=== PATIENT | male | born 1955 | race Caucasian/White ===

== ENCOUNTER 2016-11-23 08:41 | Outpatient (CLI) | payer MEDICARE ==
[2016-11-23] MEDS ORDERED: IOPAMIDOL-300 100 ML VIAL IVP ONE (10:25)
== END 2016-11-23 08:42 | disposition home or self-care (01) ==
DX: B18.2 Chronic viral hepatitis C (principal); R91.1 Solitary pulmonary nodule; J43.9 Emphysema, unspecified
CPT/HCPCS: 36415; 74170; 82565; Q9967

== ENCOUNTER 2018-01-23 08:30 | Outpatient (CLI) | payer MEDICARE ==
[2018-01-23 10:21] LABS: HGB - HEMOGLOBIN 13.9 g/dL (14.0-18.0); MEAN CORPUSCULAR HEMOGLOBIN 32.3 pg (27.0-31.0); MEAN CORPUSCULAR HGB CONC 34.9 g/dL (32.0-36.0); MEAN CORPUSCULAR VOLUME 92.5 fL (80.0-94.0); MEAN PLATELET VOLUME 8.5 fL (7.4-11.4); RED BLOOD COUNT 4.29 10^6/uL (4.70-6.10); WHITE BLOOD COUNT 5.8 x10^3/uL (4.8-10.8)
[2018-01-23 10:26] LABS: INR 1.1 (0.8-1.2); PT - PROTHROMBIN TIME 12.5 secs (9.9-12.6)
[2018-01-23 10:38] LABS: ALBUMIN 4.4 g/dL (3.2-5.5); ALBUMIN/GLOBULIN RATIO 1.2 (1.0-2.2); ALKALINE PHOSPHATASE 64 IU/L (42-121); ALT ALANINE AMINOTRANSFERASE 19 IU/L (10-60); AST ASPARTATE AMINOTRANSFERASE 35 IU/L (10-42); BILIRUBIN,DIRECT < 0.1 mg/dL (0.1-0.5); BILIRUBIN,TOTAL 0.5 mg/dL (0.2-1.0); BUN - BLOOD UREA NITROGEN 9 mg/dL (6-20); CALCIUM 9.7 mg/dL (8.5-10.3); CARBON DIOXIDE - CO2 28 mmol/L (21-32); CHLORIDE 97 mmol/L (101-111); CREATININE 0.8 mg/dL (0.6-1.2); GFR - MDRD 97 (>89); GLUCOSE 104 mg/dL (70-100); SODIUM 134 mmol/L (135-145); TOTAL PROTEIN 8.1 g/dL (6.7-8.2)
[2018-01-27 11:31] LABS: HCV RNA QNT <1.18 DETECTED Log IU/mL (NOT DETECTED); HCV RNA QUANT RT PCR <15 DETECTED IU/mL (NOT DETECTED)
== END 2018-01-23 08:31 | disposition home or self-care (01) ==
LOC: LAB.F 08:30
PROVIDERS: ATTEND Internal Medicine Gastroenterology
DX: B18.2 Chronic viral hepatitis C (principal)
CPT/HCPCS: 36415; 80053; 80076; 82248; 85610; 87522

== ENCOUNTER 2018-02-06 08:27 | Outpatient (CLI) | payer MEDICARE ==
[2018-02-09 18:36] LABS: HCV RNA QNT <1.18 DETECTED Log IU/mL (NOT DETECTED); HCV RNA QUANT RT PCR <15 DETECTED IU/mL (NOT DETECTED)
== END 2018-02-06 08:28 | disposition home or self-care (01) ==
LOC: LAB.F 08:27
PROVIDERS: ATTEND Internal Medicine Gastroenterology
DX: B18.2 Chronic viral hepatitis C (principal)
CPT/HCPCS: 36415; 87522

== ENCOUNTER 2018-03-23 07:11 | Outpatient (CLI) | payer MEDICARE ==
[2018-03-23 11:10] LABS: ALBUMIN 4.1 g/dL (3.2-5.5); BILIRUBIN,DIRECT 0.1 mg/dL (0.1-0.5); BILIRUBIN,TOTAL 0.6 mg/dL (0.2-1.0); TOTAL PROTEIN 8.1 g/dL (6.7-8.2)
== END 2018-03-23 07:12 | disposition home or self-care (01) ==
LOC: LAB.F 07:11
PROVIDERS: ATTEND Internal Medicine Gastroenterology
DX: B18.2 Chronic viral hepatitis C (principal)
CPT/HCPCS: 36415; 80076; 87522; 87902

== ENCOUNTER 2018-06-12 07:24 | Outpatient (CLI) | payer MEDICARE ==
[2018-06-12 10:24] LABS: ALBUMIN 4.3 g/dL (3.2-5.5); BILIRUBIN,DIRECT 0.1 mg/dL (0.1-0.5); BILIRUBIN,TOTAL 0.5 mg/dL (0.2-1.0); TOTAL PROTEIN 7.9 g/dL (6.7-8.2)
[2018-06-16 18:47] LABS: HCV RNA QNT <1.18 NOT DETECTED Log IU/mL (NOT DETECTED); HCV RNA QUANT RT PCR <15 NOT DETECTED IU/mL (NOT DETECTED)
== END 2018-06-12 07:25 | disposition home or self-care (01) ==
LOC: LAB.F 07:24
PROVIDERS: ATTEND Internal Medicine Gastroenterology
DX: B18.2 Chronic viral hepatitis C (principal)
CPT/HCPCS: 36415; 80076; 87522

== ENCOUNTER 2019-03-31 07:45 | Outpatient (CLI) | payer MEDICARE ==
[2019-04-02 12:53] LABS: HCV RNA QNT <1.18 NOT DETECTED Log IU/mL (NOT DETECTED); HCV RNA QUANT RT PCR <15 NOT DETECTED IU/mL (NOT DETECTED)
== END 2019-03-31 07:46 | disposition home or self-care (01) ==
LOC: LAB.F 07:45
PROVIDERS: ATTEND Internal Medicine Gastroenterology
DX: B18.2 Chronic viral hepatitis C (principal)
CPT/HCPCS: 36415; 87522

== ENCOUNTER 2019-07-24 09:39 | Outpatient (CLI) | payer MEDICARE ==
--- NOTE | 2019-07-25 17:46 | XRAY Report ---
Reason: PAIN IN LEFT KNEE Procedure Date: 07/24/2019 Accession Number: [id number] / [id number] Procedure: XR - Knee 4 View LT CPT Code: FULL RESULT: EXAM: LEFT KNEE RADIOGRAPHY EXAM DATE: 07/24/2019 10:01 AM. CLINICAL HISTORY: PAIN IN LEFT KNEE. COMPARISON: None. TECHNIQUE: 3 views. FINDINGS: Bones: No acute fracture lines are seen. No focal abnormal osseous lesions. Joints: Small joint effusion. No subluxation. Mild tricompartmental osteophytes seen. Soft Tissues: Normal. No soft tissue swelling. IMPRESSION: 1. No evidence for acute fracture or dislocation of the left knee. 2. Small joint effusion noted. 3. Early tricompartmental osteoarthritis. RADIA
== END 2019-07-24 09:40 | disposition home or self-care (01) ==
LOC: DI 09:39
PROVIDERS: ATTEND Nurse Practitioner Family
DX: M17.12 Unilateral primary osteoarthritis, left knee (principal)

== ENCOUNTER 2023-04-13 14:59 | Emergency (ER) | payer MEDICARE ==
[2023-04-13 15:12] VITALS: BP 129/65
--- NOTE | 2023-04-13 15:40 | ED Physician Documentation ---
History of Present Illness - Stated complaint Stated Complaint: LT LEG INJ - Chief complaint Chief Complaint: Laceration - Additonal information Additional information: 67-year-old male presents emergency department for evaluation of left lower leg laceration. He was using a reciprocating saw when it kicked back and cut his left lower lateral leg. Tetanus is up-to-date 6 years ago. He is not anticoagulated. He reports it bled quite heavily but has subsequently slowed. He is ambulatory. Review of Systems Constitutional: denies: Fever Skin: reports: Laceration (s) PD PAST MEDICAL HISTORY - Past Surgical History Past Surgical History: Yes - Present Medications Home Medications: Ambulatory Orders Medication Instructions Recorded Confirmed Cyclobenzaprine [Flexeril] 10 mg PO BID 05/13/13 05/13/13 Hydrochlorothiazide 25 mg PO DAILY 05/13/13 05/13/13 Hydrocodone Bit/Homatrop Me-Br 473 ml PO 05/13/13 05/13/13 [Hydromet Syrup] Indomethacin 50 mg PO TID #15 capsule 05/13/13 Promethazine [Phenergan] 25 mg PO Q6H PRN 05/13/13 05/13/13 Trazodone HCl 300 mg PO HS 05/13/13 05/13/13 fentaNYL 12 MCG PATCH [Duragesic] 12 mcg TOP 05/13/13 05/13/13 - Allergies Allergies/Adverse Reactions: Allergies Allergy/AdvReac Type Severity Reaction Status Date / Time No Known Drug Allergies Allergy Verified 05/13/13 14:32 - Social History Does the pt smoke?: Yes Smoking Status: Smoker current status unk Does the pt drink ETOH?: No Does the pt have substance abuse?: No - Immunizations Immunizations are current?: Yes - POLST Patient has POLST: No PD ED PE EXPANDED - General General: Alert, No acute distress - Extremities Extremities: Left leg (Irregular slightly macerated laceration about 4 cm in length left lower lateral leg with exposure of the subcutaneous muscle. Distal 2+ DP pulse.) Results - Vitals Vitals: Vital Signs - 24 hr 04/13/23 15:05 Temperature 36.5 C Heart Rate 97 Respiratory 16 Rate Blood Pressure 129/65 O2 Saturation 97 Oxygen O2 Source Room air - Rads (name of study) left tib fib Relevant Findings:: EMP independent interpretation of test (No acute fracture or osseous lesion or dislocation) Procedures - Laceration (location) left leg Length in cm: 4.5 Wound type: Irregular, Into muscle, Clean Neurovascular status: Sensory intact, Motor intact Anesthesia: Lidocaine 1% with epi Wound preparation: Chlorhexadine, Irrigated copiously NS Skin layer closure: Nylon, Interrupted, Sutures - enter # (5) Other: Patient tolerated well, No complications, Tetanus booster given PD Medical Decision Making - ED course Complexity details: d/w patient ED course: 67-year-old male presents emergency department for evaluation of left leg laceration sustained when a reciprocating saw kicked back and cut his leg. The wound is on the lateral edge of the leg. An x-ray as interpreted by myself shows no evidence of foreign body or tib-fib fracture. The wound was copiously irrigated and then the wound was approximated using 5 interrupted sutures. I did leave room for swelling and drainage if it becomes necessary. Tetanus was updated today. Given the otherwise clean appearance of the wound I do not feel that the patient needs antibiotics at this juncture however the usual explicit return precautions as well as wound care instructions were discussed. Departure - Departure Disposition: 01 Home, Self Care Clinical Impression: Laceration of left leg Qualifiers: Encounter type: initial encounter Qualified Code(s): S81.812A - Laceration without foreign body, left lower leg, initial encounter Condition: Stable Record reviewed to determine appropriate education?: Yes Instructions: ED Laceration All Comments: Your suture(5) should be removed in 10 days. In 24 hours you may remove the dressing wash gently with warm soap and water, apply any antibiotic ointment and a simple bandage. Your tetanus is up-to-date as of today Please attempt to keep your wound clean and dry. Do not submerge it in dirty dishwater or bath water. Return to the emergency department if you have any concerns of infection such as redness, fevers milky drainage increased pain.
[2023-04-13] MEDS ORDERED: TETANUS/DIPHTHERIA/PERTUSSIS 0.5 ML SYRINGE IM ONE (16:22)
--- NOTE | 2023-04-13 16:42 | XRAY Report ---
PROCEDURE: Tib/Fib LT INDICATIONS: Reciprocating saw injury TECHNIQUE: 2 views of the tibia and fibula were acquired. COMPARISON: None. FINDINGS: Bones: No fractures or dislocations. No suspicious bony lesions. Soft tissues: No suspicious soft tissue calcifications or masses. IMPRESSION: No acute bony abnormality. Reviewed by: Anson Hart on 04/13/2023 3:40 PM CHRISTINA Approved by: Anson Hart on 04/13/2023 3:40 PM NECHRIS Station ID: [id number]
== END 2023-04-13 16:30 | disposition home or self-care (01) ==
LOC: ED 14:59
DX: S81.812A Laceration without foreign body, left lower leg, initial encounter (principal); W27.0XXA Contact with workbench tool, initial encounter; Z23 Encounter for immunization
CPT/HCPCS: 12001; 90471; 99283

== ENCOUNTER 2024-03-05 08:29 | Outpatient (CLI) | payer MEDICARE ==
[2024-03-05] MEDS ORDERED: iohexoL-300 100 ML VIAL ONE (08:34)
[2024-03-05] MEDS: iohexoL-300 100 ML VIAL IVP ONE (09:06)
--- NOTE | 2024-03-05 12:51 | CT Report ---
PROCEDURE: Soft Tissue Neck W INDICATIONS: CERVICAL LYMPHADENOPATHY CONTRAST: 100ml omni TECHNIQUE: After the administration of intravenous contrast, 3.0 mm axial sections acquired from the sella to th e aortic arch. Additional oblique axial 3.0 mm sections acquired through the pharynx. 3 mm thick co jay reformats were generated. For radiation dose reduction, the following was used: automated exp osure control, adjustment of mA and/or kV according to patient size. COMPARISON: None. FINDINGS: Image quality: Excellent. Lymph nodes: No enlarged lymph nodes seen throughout the neck. Vessels: Visualized vasculature appears patent. Neck spaces: The oropharynx, nasopharynx, and pharynx demonstrate no mucosal lesions. The vocal cor ds, false vocal cords, pyriform sinuses, epiglottis, vallecula, and tongue base all appear normal. E xtramucosal spaces appear unremarkable. Glands: The submandibular glands appear normal. The thyroid is normal in size and there are no inci dental findings. There is an enhancing mass within the posterior inferior right parotid gland measuri ng 2.1 x 2.0 cm on series 2 image 36. Miscellaneous: Visualized brain and orbits appear normal. Lung apices appear clear. Superficial so ft tissues appear normal. Bones: No suspicious bony lesions. Visualized sinuses and mastoids appear unremarkable. IMPRESSION: 2.1 x 2 point centimeter enhancing mass within the inferior posterior right parotid gland. No priors are available for comparison. Differential includes benign etiology such as Elly's tumor as well a s masses of malignant origin. Further evaluation with ENT and biopsy is recommended. CLINICAL RECOMMENDATION STATEMENTS: In patients <35 years with an ITN detected on CT, MRI, or extrathyroidal ultrasound, the Committee re commends further evaluation with dedicated thyroid ultrasound if the nodule is "e1 cm and has no susp icious imaging features, and if the patient has normal life expectancy. In patients "e35 years with an ITN detected on CT, MRI, or extrathyroidal ultrasound, the Committee r ecommends further evaluation with dedicated thyroid ultrasound if the nodule is "e1.5 cm and has no s uspicious imaging features, and if the patient has normal life expectancy. (ACR, 2014) Reviewed by: Joanie Salas MD on 03/05/2024 12:50 PM PDT Approved by: Joanie Salas MD on 03/05/2024 12:50 PM PDT Station ID: [id number]
== END 2024-03-05 08:30 | disposition home or self-care (01) ==
LOC: DI 08:29
PROVIDERS: ATTEND Registered Nurse
DX: K11.8 Other diseases of salivary glands (principal)
CPT/HCPCS: 70491; Q9967

== ENCOUNTER 2025-09-21 21:20 | Inpatient (IN) ==
--- OUTSIDE RECORDS SUMMARY | 2025-09-21 21:47 | EXTERNAL MEDICAL SUMMARY RPT | Continuity of Care Document ---
Author Organization [facility] Address [address] [place] [id number] Phone Allergies and Intolerances date description facility reaction severity 2013-05-13 10:00 [id number]^No Known Drug Allergies^^No Known Drug Allergies^^[facility] (no reaction) (no severity) 2025-06-16 10:00 [id number]^No Known Drug Allergies^^No Known Drug Allergies^^[facility] ([facility] reaction) (no severity) 2025-07-13 10:00 [id number]^No Known Drug Allergies^^No Known Drug Allergies^^[facility] (no reaction) (no severity) 2025-07-21 10:00 [id number]^No Known Drug Allergies^^No Known Drug Allergies^^[facility] (no reaction) (no severity) 2025-08-29 10:00 [id number]^No Known Drug Allergies^^No Known Drug Allergies^^[facility] (no reaction) (no severity) 2025-09-06 10:00 [id number]^No Known Drug Allergies^^No Known Drug Allergies^^[facility] (no reaction) (no severity) 2025-09-08 10:00 [id number]^No Known Drug Allergies^^No Known Drug Allergies^^[facility] (no reaction) (no severity) Problems date description facility 2025-06-30 15:06 Abnormal findings on diagnostic imaging of other abdominal regions, including retroperitoneum [facility] 2025-07-13 14:17 Elevated prostate specific anti gen [PSA] [facility] 2025-07-13 14:39 Elevated prostate specific anti gen [PSA] [facility] 2025-07-26 12:54 Hypercalcemia [facility] 2025-08-19 00:05 [facility] cell carcinoma [facility] 2025-08-19 12:52 Liver cell [facility] 2025-08-19 12:54 [facility] cell [facility] 2025-08-20 00:00 Liver cell carcinoma [facility] 2025-08-20 00:00 [facility] 2025-08-20 00:00 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 [facility]monale [facility] 2025-08-22 14:11 Liver cell carcinoma [facility] 2025-08-23 07:43 Liver cell carcinoma [facility] 2025-08-23 09:14 Liver cell [facility] 2025-08-23 09:25 Liver cell carcinoma [facility] 2025-08-23 10:18 Liver cell carcinoma [facility] 2025-08-25 08:23 [facility] cell [facility] 2025-08-25 08:23 Moderate protein-calorie malnut rition [facility] 2025-08-25 09:24 Liver cell carcinoma [facility] 2025-08-25 09:26 Liver cell carcinoma [facility] 2025-08-26 07:47 Liver cell carcinoma [facility] 2025-08-26 08:48 Liver cell carcinoma [facility] 2025-08-26 09:09 Liver cell carcinoma [facility] 2025-08-27 00:01 Liver cell carcinoma [facility] 2025-08-27 00:01 Hyper[facility]cemia [facility] 2025-08-27 00:01 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27 00:01 Other specified counseling [facility] 2025-08-30 08:41 [facility] cell [facility] 2025-08-30 08:56 Liver cell carcinoma [facility] 2025-08-30 08:56 Encounter for genera l adult medical examination without abnormal findings [facility] 2025-08-30 08:59 Liver cell carcinoma [facility] 2025-08-30 08:59 Encounter for genera l adult medical examination without abnormal findings [facility] 2025-08-30 10:17 Liver cell carcinoma [facility] 2025-08-30 10:17 Hypercalcemia [facility] 2025-08-30 10:17 Encounter for genera l adult medical examination without abnormal [facility] 2025-09-02 08:41 Liver cell carcinoma [facility] 2025-09-02 08:41 Encounter for genera l adult medical examination without abnormal findings [facility] 2025-09-02 08:56 Liver cell carcinoma [facility] 2025-09-02 08:56 Encounter for genera l adult medical examination without abnormal findings [facility] 2025-09-02 09:28 Liver cell carcinoma [facility] 2025-09-02 09:28 Encounter for genera l adult medical examination without abnormal [facility] 2025-09-02 09:36 Liver cell carcinoma [facility] 2025-09-02 10:38 Liver cell carcinoma [facility] 2025-09-02 10:39 Liver cell carcinoma [facility] 2025-09-02 11:03 Liver cell carcinoma [facility] 2025-09-02 11:03 Encounter for genera l adult medical examination without abnormal [facility] 2025-09-02 11:04 Liver cell carcinoma [facility] 2025-09-02 11:04 Encounter for genera l adult medical examination without abnormal findings [facility] 2025-09-03 12:13 Liver cell carcinoma [facility] 2025-09-04 00:01 Liver cell carcinoma [facility] 2025-09-05 12:10 Liver cell carcinoma [facility] 2025-09-05 13:58 Liver cell carcinoma [facility] 2025-09-06 08:47 Liver cell carcinoma [facility] 2025-09-06 09:03 Liver cell carcinoma [facility] 2025-09-06 09:03 Hyper[facility]cemia [facility] 2025-09-06 09:37 Liver cell carcinoma [facility] 2025-09-06 09:37 Hyper[facility]cemia [facility] 2025-09-06 15:12 Liver cell carcinoma [facility] 2025-09-06 15:12 Hypercalcemia [facility] 2025-09-08 14:55 Liver cell carcinoma [facility] 2025-09-08 16:18 Gastritis, unspecified, without bleeding [facility] 2025-09-08 16:25 Gastritis, unspecified, without bleeding [facility] 2025-09-08 16:58 Liver cell carcinoma [facility] 2025-09-08 16:58 Gastritis, unspecified, without bleeding [facility] 2025-09-09 11:24 Liver cell carcinoma [facility] 2025-09-09 11:24 [facility]cemia [facility] 2025-09-09 11:25 Liver cell carcinoma [facility] 2025-09-09 11:25 [facility]calcemia [facility] 2025-09-09 11:58 Liver cell carcinoma [facility] 2025-09-09 11:58 [facility]calcemia [facility] 2025-09-09 11:58 Abnormal findings on diagnostic imaging of other abdominal regions, including retroperitoneum [facility] 2025-09-09 11:58 Laceration without f oreign body, left lower leg, initial encounter [facility] 2025-09-12 08:14 Liver cell carcinoma [facility] 2025-09-12 08:14 [facility]cemia [facility] 2025-09-12 08:15 Liver cell carcinoma [facility] 2025-09-12 08:15 [facility]calcemia [facility] 2025-09-12 09:12 Liver cell carcinoma [facility] 2025-09-12 09:12 [facility] 2025-09-12 10:45 Liver cell carcinoma [facility] 2025-09-12 10:45 [facility] 2025-09-12 10:46 Liver cell carcinoma [facility] 2025-09-12 10:46 [facility] 2025-09-12 10:48 Liver cell carcinoma [facility] 2025-09-12 10:48 [facility] 2025-09-12 10:49 Liver cell carcinoma [facility] 2025-09-12 10:49 Hypercalcemia [facility] 2025-09-12 10:51 Liver cell carcinoma [facility] 2025-09-12 10:51 Hypercalcemia [facility] 2025-09-12 10:55 Liver cell carcinoma [facility] 2025-09-12 10:55 Hypercalcemia [facility] 2025-09-12 10:56 Liver cell carcinoma [facility] 2025-09-12 10:56 Hypercalcemia [facility] 2025-09-12 14:31 Liver cell carcinoma [facility] 2025-09-12 14:31 Gastritis, unspecified, without bleeding [facility] 2025-09-12 14:55 Liver cell carcinoma [facility] 2025-09-12 14:55 Hypercalcemia [facility] 2025-09-19 10:23 Liver cell [facility] 2025-09-19 10:23 Hypercalcemia [facility] 2025-09-19 11:03 Liver cell carcinoma [facility] 2025-09-19 11:03 Hypercalcemia [facility] 2025-09-19 13:59 Liver cell carcinoma [facility] 2025-09-19 13:59 Hypercalcemia [facility] 2025-09-19 14:00 Liver cell carcinoma [facility] 2025-09-19 14:00 Hypercalcemia [facility] Results/Labs test date facility value unit notes Result panel 1 NUCLEATED RED BLOOD CELLS AUTO 2025-07-21 11:34 [facility] 0.0 /100wbc (missing) BASOPHILS # (AUTO) 2025-07-21 11:34 [facility] 0.0 10 3/ul (missing) EOSINOPHILS # (AUTO) 2025-07-21 11:34 [facility] 0.0 10 3/ul (missing) NRBC ABSOLUTE COUNT (AUTO) 2025-07-21 11:34 [facility] 0.00 x10 3/ul (missing) MONOCYTES # (AUTO) 2025-07-21 11:34 [facility] 0.4 10 3/ul (missing) CREATININE 2025-07-21 11:34 [facility] 0.7 mg/dl As of April 2023 testing method has changed, this may include reference ranges. LYMPHOCYTES # (AUTO) 2025-07-21 11:34 [facility] 1.0 10 3/ul (missing) MAGNESIUM 2025-07-21 11:34 [facility] 1.3 mg/dl As of April 2023 testing method has changed, this may include reference ranges. MEAN PLATELET VOLUME 2025-07-21 11:34 [facility] 10.9 fl (missing) PLT - PLATELET COUNT 2025-07-21 11:34 [facility] 110 10 3/ul (missing) GFR - MDRD 2025-07-21 11:34 [facility] 111 (in g) The IDKY-traceable MDRD Study Equation has been validated extensively in and populations between the ages of 18 and 70 with impaired kidney function (eGFR < 60 mL/min/1.73m2) and has shown good performance for patients with all common causes of kidney disease. Although this equation has not been validated for patients older than 70, an MDRD-derived eGFR may still be a useful tool for providers caring for patients older than 70. References: http://www.nkdep.n ih.gov/lab-evaluat ion/gfr/creatinine -stand ardization, last updated December 2011. SODIUM 2025-07-21 11:34 [facility] 127 mmol/l (missing) RED CELL DISTRIBUTION WIDTH 2025-07-21 11:34 [facility] 13.3 % (mi ssing) CALCIUM 2025-07-21 11:34 [facility] 13.9 mg/dl Critical result CA 13.9 mg/dL called to and read back by YESICA Gardner/RN/ED at 21-Jul-2025 11:59 by daniela. As of April 2023 testing method has changed, this may include reference ranges. HGB - HEMOGLOBIN 2025-07-21 11:34 [facility] 17.9 g /dl (missing) CARBON DIOXIDE - CO2 2025-07-21 11:34 [facility] 25 mmol/l As of April 2023 testing method has changed, this may include reference ranges. MEAN CORPUSCULAR HEMOGLOBIN 2025-07-21 11:34 [facility] 32.1 pg (missing) MEAN CORPUSCULAR HGB CONC 2025-07-21 11:34 [facility] 33.4 g/dl (missing) BUN - BLOOD UREA NITROGEN 2025-07-21 11:34 [facility] 39 mg/dl As of Apr testing method has changed, this may include reference ranges. POTASSIUM 2025-07-21 11:34 [facility] 4.6 mmol/l As of April 2023 testing method has changed, this may include reference ranges. NEUTROPHILS # (AUTO) 2025-07-21 11:34 [facility] 4.7 10 3/ul (missing) RED BLOOD COUNT 2025-07-21 11:34 [facility] 5.57 10 6/ul (missing) HCT - HEMATOCRIT 2025-07-21 11:34 [facility] 53.6 % (missing) WHITE BLOOD COUNT 2025-07-21 11:34 [facility] 6.1 x10 3/ul (missing) ANION GAP 2025-07-21 11:34 [facility] 7.0 (missing ) (missing) GLUCOSE 2025-07-21 11:34 [facility] 95 mg/dl As of April 2023 testing method has changed, this may include reference ranges. CHLORIDE 2025-07-21 11:34 [facility] 95 mmol/l As of April 2023 testing method has changed, this may include reference ranges. MEAN CORPUSCULAR VOLUME 2025-07-21 11:34 [facility] 96.2 fl (missing) Result panel 2 NUCLEATED RED BLOOD CELLS AUTO 2025-08-18 16:48 [facility] 0.0 /100wbc (missing) BASOPHILS # (AUTO) 2025-08-18 16:48 [facility] 0.0 10 3/ul (missing) EOSINOPHILS # (AUTO) 2025-08-18 16:48 [facility] 0.0 10 3/ul (missing) NRBC ABSOLUTE COUNT (AUTO) 2025-08-18 16:48 [facility] 0.00 x10 3/ul (missing) MONOCYTES # (AUTO) 2025-08-18 16:48 [facility] 0.5 10 3/ul (missing) CREATININE 2025-08-18 16:48 [facility] 0.6 mg/dl As of April 2023 testing method has changed, this may include reference ranges. LYMPHOCYTES # (AUTO) 2025-08-18 16:48 [facility] 0.9 10 3/ul (missing) BILIRUBIN,TOTAL 2025-08-18 16:48 [facility] 1.0 mg/dl As of April 2023 testing method has changed, this may include reference ranges. ALBUMIN/GLOBULIN RATIO 2025-08-18 16:48 [facility] 1.1 (missing) (missing) GLUCOSE 2025-08-18 16:48 [facility] 106 mg/dl As of April 2023 testing method has changed, this may include reference ranges. PLT - PLATELET COUNT 2025-08-18 16:48 [facility] 118 10 3/ul (missing) BUN - BLOOD UREA NITROGEN 2025-08-18 16:48 [facility] 12 mg/dl As of April 2023 testing method has changed, this may include reference ranges. CALCIUM 2025-08-18 16:48 [facility] 12.6 mg/dl Critical result CA 12.6 mg/dL called to and read back by ADIN PATEL at 18-Aug-2025 17:41 by arslan. As of April 2023 testing method has changed, this may include reference ranges. SODIUM 2025-08-18 16:48 [facility] 129 mmol/l Unknown GFR - MDRD 2025-08-18 16:48 [facility] 133 (missing) The IDMS-traceable MDRD Study Equation has been validated extensively in and populations between the ages of 18 and 70 with impaired kidney function (eGFR < 60 mL/min/1.73m2) and has shown good performance for patients with all common causes of kidney disease. Although this equation has not been validated for patients older than 70, an MDRD-derived eGFR may still be a useful tool for providers caring for patients older than 70. References: http://www.nkdep. nih.gov/lab-evalu ation/gfr/creatin ine-stand ardization, last updated December 2011. RED CELL DISTRIBUTION WIDTH 2025-08-18 16:48 [facility] 14.0 % (missing) HGB - HEMOGLOBIN 2025-08-18 16:48 [facility] 17.2 g/dl (missing) ALKALINE PHOSPHATASE 2025-08-18 16:48 [facility] 215 iu/l As of April 2023 testing method has changed, this may include reference ranges. ALT ALANINE AMINOTRANSFERASE 2025-08-18 16:48 [facility] 24 iu/l As of April 2023 testing method has changed, this may include reference ranges. CARBON DIOXIDE - CO2 2025-08-18 16:48 [facility] 25 mmol/l As of April 2023 testing method has changed, this may include reference ranges. GLOBULIN 2025-08-18 16:48 [facility] 3.8 g/dl (missing) MEAN CORPUSCULAR HEMOGLOBIN 2025-08-18 16:48 [facility] 31.2 pg (missing) MEAN CORPUSCULAR HGB CONC 2025-08-18 16:48 [facility] 32.9 g/dl (missing) ALBUMIN 2025-08-18 16:48 [facility] 4.3 g/dl As of April 2023 testing method has changed, this may include reference ranges. NEUTROPHILS # (AUTO) 2025-08-18 16:48 [facility] 4.4 10 3/ul (missing) POTASSIUM 2025-08-18 16:48 [facility] 4.6 mmol/l As of April 2023 testing method has changed, this may include reference ranges. ANION GAP 2025-08-18 16:48 [facility] 5.0 (missing) (missing) RED BLOOD COUNT 2025-08-18 16:48 [facility] 5.51 10 6/ul (missing) WHITE BLOOD COUNT 2025-08-18 16:48 [facility] 5.9 x10 3/ul (missing) HCT - HEMATOCRIT 2025-08-18 16:48 [facility] 52.3 % (missing) AST ASPARTATE AMINOTRANSFERASE 2025-08-18 16:48 [facility] 77 iu/l As of April 2023 testing method has changed, this may include reference ranges. TOTAL PROTEIN 2025-08-18 16:48 [facility] 8.1 g/dl As of April 2023 testing method has changed, this may include reference ranges. MEAN PLATELET VOLUME 2025-08-18 16:48 [facility] 9.7 fl (missing) MEAN CORPUSCULAR VOLUME 2025-08-18 16:48 [facility] 94.9 fl (missing) CHLORIDE 2025-08-18 16:48 [facility] 99 mmol/l As of April 2023 testing method has changed, this may include reference ranges. HCV RNA DIAG TEST INFORMATION 2025-08-18 16:48 [facility] Comment (missing) The quantitative range of this assay is 15 IU/mL to 100 million IU/mL. Performed at: - [facility] [id number] [place]: Radha Goddard MD, Phone: [phone] HCV RNA QUANTITATION 2025-08-18 16:48 [facility] HCV Not Detected iu/ml No evidence of active HCV infection. HBsAG SCREEN 2025-08-18 16:48 [facility] Negative (missing) (missing) HEPATITIS BE ANTIGEN 2025-08-18 16:48 [facility] Negative (missing) (missing) HEPATITIS B CORE TOTAL AB 2025-08-18 16:48 [facility] Negative (missing) Performed at: [facility], [address], [place], [place] [id number] [place]: Julius Painter MD, Phone: [phone] HEPATITIS B SURFACE AB QUAL 2025-08-18 16:48 [facility] Non Reactive (missing) Non Reactive: Not immune to HBV infection. Anti-HBs undetectable or less than 10 mIU/mL. Reactive: Evidence of HBV immunity. Anti-HBs levels greater than 10 mIU/mL. HEPATITIS C VIRUS AB 2025-08-18 16:48 [facility] Reactive (missing) HCV antibody alone does not differentiate between previously resolved infection and active infection. Equivocal and Reactive HCV antibody results should be followed up with an HCV RNA test to support the diagnosis of active HCV infection. HCV RNA LOG10 2025-08-18 16:48 [facility] TNP (missing) (missing) Result panel 3 NUCLEATED RED BLOOD CELLS AUTO 2025-08-23 09:23 [facility] 0.0 /100wbc (missing) BASOPHILS # (AUTO) 2025-08-23 09:23 [facility] 0.0 10 3/ul (missing) EOSINOPHILS # (AUTO) 2025-08-23 09:23 [facility] 0.0 10 3/ul (missing) NRBC ABSOLUTE COUNT (AUTO) 2025-08-23 09:23 [facility] 0.00 x10 3/ul (missing) MONOCYTES # (AUTO) 2025-08-23 09:23 [facility] 0.5 10 3/ul (missing) CREATININE 2025-08-23 09:23 [facility] 0.7 mg/dl As of April 2023 testing method has changed, this may include reference ranges. BILIRUBIN,TOTAL 2025-08-23 09:23 [facility] 0.8 mg/dl As of April 2023 testing method has changed, this may include reference ranges. LYMPHOCYTES # (AUTO) 2025-08-23 09:23 [facility] 0.9 10 3/ul (missing) ALBUMIN/GLOBULIN RATIO 2025-08-23 09:23 [facility] 1.3 (missing) (missing) MAGNESIUM 2025-08-23 09:23 [facility] 1.4 mg/dl As of April 2023 testing method has changed, this may include reference ranges. GFR - MDRD 2025-08-23 09:23 [facility] 111 (missing) The IDMS-traceable MDRD Study Equation has been validated extensively in and populations between the ages of 18 and 70 with impaired kidney function (eGFR < 60 mL/min/1.73m2) and has shown good performance for patients with all common causes of kidney disease. Although this equation has not been validated for patients older than 70, an MDRD-derived eGFR may still be a useful tool for providers caring for patients older than 70. References: http://www.nkdep. nih.gov/lab-evalu ation/gfr/creatin ine-stand ardization, last updated December 2011. SODIUM 2025-08-23 09:23 [facility] 128 mmol/l Unknown CALCIUM 2025-08-23 09:23 [facility] 13.0 mg/dl Critical result CA 13.0 mg/dL called to and read back by ARRON Bowen/RN/MAC at 23-Aug-2025 09:50 by daniela. As of April 2023 testing method has changed, this may include reference ranges. RED CELL DISTRIBUTION WIDTH 2025-08-23 09:23 [facility] 14.3 % (missing) HGB - HEMOGLOBIN 2025-08-23 09:23 [facility] 16.8 g/dl (missing) BUN - BLOOD UREA NITROGEN 2025-08-23 09:23 [facility] 17 mg/dl As of April 2023 testing method has changed, this may include reference ranges. ALT ALANINE AMINOTRANSFERASE 2025-08-23 09:23 [facility] 18 iu/l As of April 2023 testing method has changed, this may include reference ranges. ALKALINE PHOSPHATASE 2025-08-23 09:23 [facility] 200 iu/l As of April 2023 testing method has changed, this may include reference ranges. CARBON DIOXIDE - CO2 2025-08-23: [facility] 29 mmol/l As of April 2023 testing method has changed, this may include reference ranges. ANION GAP 2025-08-23 09:23 [facility] 3.0 (missing) (missing) GLOBULIN 2025-08-23 09:23 [facility] 3.2 g/dl (missing) MEAN CORPUSCULAR HEMOGLOBIN 2025-08-23 09:23 [facility] 30.8 pg (missing) MEAN CORPUSCULAR HGB CONC 2025-08-23 09:23 [facility] 32.0 g/dl (missing) NEUTROPHILS # (AUTO) 2025-08-23 09:23 [facility] 4.0 10 3/ul (missing) ALBUMIN 2025-08-23 09:23 [facility] 4.1 g/dl As of April 2023 testing method has changed, this may include reference ranges. POTASSIUM 2025-08-23:23 [facility] 4.5 mmol/l As of April 2023 testing method has changed, this may include reference ranges. WHITE BLOOD COUNT 2025-08-23 09:23 [facility] 5.4 x10 3/ul (missing) RED BLOOD COUNT 2025-08-23 09:23 [facility] 5.46 10 6/ul (missing) HCT - HEMATOCRIT 2025-08-23 09:23 [facility] 52.5 % (missing) TOTAL PROTEIN 2025-08-23 09:23 [facility] 7.3 g/dl As of April 2023 testing method has changed, this may include reference ranges. AST ASPARTATE AMINOTRANSFERASE 2025-08-23 09:23 [facility] As of April 2023 testing method has changed, this may include reference ranges. GLUCOSE 2025-08-23 09:23 [facility] 86 mg/dl As of April 2023 testing method has changed, this may include reference ranges. MEAN PLATELET VOLUME 2025-08-23 09:23 [facility] 9.0 fl (missing) PLT - PLATELET COUNT 2025-08-23 09:23 [facility] 91 10 3/ul (missing) CHLORIDE 2025-08-23 09:23 [facility] 96 mmol/l As of April 2023 testing method has changed, this may include reference ranges. MEAN CORPUSCULAR VOLUME 2025-08-23 09:23 [facility] 96.2 fl (missing) Result panel 4 NUCLEATED RED BLOOD CELLS AUTO 2025-08-26 09:04 [facility] 0.0 /100wbc (missing) BASOPHILS # (AUTO) 2025-08-26 09:04 [facility] 0.0 10 3/ul (missing) EOSINOPHILS # (AUTO) 2025-08-26 09:04 [facility] 0.0 10 3/ul (missing) NRBC ABSOLUTE COUNT (AUTO) 2025-08-26 09:04 [facility] 0.00 x10 3/ul (missing) MONOCYTES # (AUTO) 2025-08-26 09:04 [facility] 0.5 10 3/ul (missing) LYMPHOCYTES # (AUTO) 2025-08-26 09:04 [facility] 0.7 10 3/ul (missing) CREATININE 2025-08-26 09:04 [facility] 0.7 mg/dl As of April 2023 testing method has changed, this may include reference ranges. BILIRUBIN,TOTAL 2025-08-26 09:04 [facility] 0.9 mg/dl As of April 2023 testing method has changed, this may include reference ranges. ALBUMIN/GLOBULIN RATIO 2025-08-26 09:04 [facility] 1.2 (missing) (missing) MAGNESIUM 2025-08-26 09:04 [facility] 1.6 mg/dl As of April 2023 testing method has changed, this may include reference ranges. GLUCOSE 2025-08-26 09:04 [facility] 106 mg/dl As of April 2023 testing method has changed, this may include reference ranges. GFR - MDRD 2025-08-26 09:04 [facility] 111 (missing) The IDMS-traceable MDRD Study Equation has been validated extensively in and populations between the ages of 18 and 70 with impaired kidney function (eGFR < 60 mL/min/1.73m2) and has shown good performance for patients with all common causes of kidney disease. Although this equation has not been validated for patients older than 70, an MDRD-derived eGFR may still be a useful tool for providers caring for patients older than 70. References: http://www.nkdep. nih.gov/lab-evalu ation/gfr/creatin ine-stand ardization, last updated December 2011. BUN - BLOOD UREA NITROGEN 2025-08-26 09:04 [facility] 12 mg/dl As of April 2023 testing method has changed, this may include reference ranges. CALCIUM 2025-08-26 09:04 [facility] 13.3 mg/dl Critical result CA 13.3 mg/dL called to and read back by DANIELLA Ho RN/CRISTINO at 26-Aug-2025 09:25 by sandi. As of April 2023 testing method has changed, this may include reference ranges. SODIUM 2025-08-26 09:04 [facility] 130 mmol/l Unknown RED CELL DISTRIBUTION WIDTH 2025-08-26 09:04 [facility] 14.3 % (missing) HGB - HEMOGLOBIN 2025-08-26 09:04 [facility] 17.7 g/dl (missing) ALT ALANINE AMINOTRANSFERASE 2025-08-26 09:04 [facility] 21 iu/l As of April 2023 testing method has changed, this may include reference ranges. ALKALINE PHOSPHATASE 2025-08-26 09:04 [facility] 220 iu/l As of April 2023 testing method has changed, this may include reference ranges. GLOBULIN 2025-08-26 09:04 [facility] 3.7 g/dl (missing) CARBON DIOXIDE - CO2 2025-08-26 09:04 [facility] 30 mmol/l As of April 2023 testing method has changed, this may include reference ranges. MEAN CORPUSCULAR HEMOGLOBIN 2025-08-26 09:04 [facility] 31.0 pg (missing) MEAN CORPUSCULAR HGB CONC 2025-08-26 09:04 [facility] 32.5 g/dl (missing) ALBUMIN 2025-08-26 09:04 [facility] 4.3 g/dl As of April 2023 testing method has changed, this may include reference ranges. NEUTROPHILS # (AUTO) 2025-08-26 09:04 [facility] 4.4 10 3/ul (missing) POTASSIUM 2025-08-26 09:04 [facility] 4.7 mmol/l As of April 2023 testing method has changed, this may include reference ranges. WHITE BLOOD COUNT 2025-08-26 09:04 [facility] 5.7 x10 3/ul (missing) RED BLOOD COUNT 2025-08-26 09:04 [facility] 5.71 10 6/ul (missing) HCT - HEMATOCRIT 2025-08-26 09:04 [facility] 54.4 % (missing) ANION GAP 2025-08-26 09:04 [facility] 6.0 (missing) (missing) AST ASPARTATE AMINOTRANSFERASE 2025-08-26 09:04 [facility] 78 iu/l As of April 2023 testing method has changed, this may include reference ranges. TOTAL PROTEIN 2025-08-26 09:04 [facility] 8.0 g/dl As of April 2023 testing method has changed, this may include reference ranges. MEAN PLATELET VOLUME 2025-08-26 09:04 [facility] 9.6 fl (missing) PLT - PLATELET COUNT 2025-08-26 09:04 [facility] 92 10 3/ul (missing) CHLORIDE 2025-08-26 09:04 [facility] 94 mmol/l As of April 2023 testing method has changed, this may include reference ranges. MEAN CORPUSCULAR VOLUME 2025-08-26 09:04 [facility] 95.3 fl (missing) Result panel 5 NUCLEATED RED BLOOD CELLS AUTO 2025-08-30 08:51 [facility] 0.0 /100wbc (missing) BASOPHILS # (AUTO) 2025-08-30 08:51 [facility] 0.0 10 3/ul (missing) EOSINOPHILS # (AUTO) 2025-08-30 08:51 [facility] 0.0 10 3/ul (missing) NRBC ABSOLUTE COUNT (AUTO) 2025-08-30 08:51 [facility] CenterR[facility] 0.00 x10 3/ul (missing) MONOCYTES # (AUTO) 2025-08-30 08:51 [facility] 0.5 10 3/ul (missing) LYMPHOCYTES # (AUTO) 2025-08-30 08:51 [facility] 0.8 10 3/ul (missing) CREATININE 2025-08-30 08:51 [facility] 0.8 mg/dl As of April 2023 testing method has changed, this may include reference ranges. BILIRUBIN,TOTAL 2025-08-30 08:51 [facility] 0.9 mg/dl As of April 2023 testing method has changed, this may include reference ranges. ALBUMIN/GLOBULIN RATIO 2025-08-30 08:51 [facility] 1.1 (missing) (missing) MAGNESIUM 2025-08-30 08:51 [facility] 1.5 mg/dl As of April 2023 testing method has changed, this may include reference ranges. MEAN PLATELET VOLUME 2025-08-30 08:51 [facility] 10.6 fl (missing) SODIUM 2025-08-30 08:51 [facility] 129 mmol/l Unknown CALCIUM 2025-08-30 08:51 [facility] 13.1 mg/dl Critical result CA 13.1 mg/dL called to and read back by DANIELLA Bowen/RN/MAC at 30-Aug-2025 09:26 by daniela. As of April 2023 testing method has changed, this may include reference ranges. RED CELL DISTRIBUTION WIDTH 2025-08-30 08:51 [facility] 14.6 % (missing) BUN - BLOOD UREA NITROGEN 2025-08-30 08:51 [facility]Lif[facility] 15 mg/dl As of April 2023 testing method has changed, this may include reference ranges. HGB - HEMOGLOBIN 2025-08-30 08:51 [facility] 17.3 g/dl (missing) ALT ALANINE AMINOTRANSFERASE 2025-08-30 08:51 [facility] 20 iu/l As of April 2023 testing method has changed, this may include reference ranges. ALKALINE PHOSPHATASE 2025-08-30 08:51 [facility] 217 iu/l As of April 2023 testing method has changed, this may include reference ranges. CARBON DIOXIDE - CO2 2025-08-30 08:51 [facility] 29 mmol/l As of April 2023 testing method has changed, this may include reference ranges. GLOBULIN 2025-08-30 08:51 [facility] 3.6 g/dl (missing) MEAN CORPUSCULAR HEMOGLOBIN 2025-08-30 08:51 [facility] 31.5 pg (missing) MEAN CORPUSCULAR HGB CONC 2025-08-30 08:51 [facility] 32.8 g/dl (missing) ANION GAP 2025-08-30 08:51 [facility] 4.0 (missing) (missing) ALBUMIN 2025-08-30 08:51 [facility] 4.0 g/dl As of April 2023 testing method has changed, this may include reference ranges. NEUTROPHILS # (AUTO) 2025-08-30 08:51 [facility] 4.6 10 3/ul (missing) POTASSIUM 2025-08-30 08:51 [facility] Center[facility] 4.8 mmol/l As of April 2023 testing method has changed, this may include reference ranges. RED BLOOD COUNT 2025-08-30 08:51 [facility] 5.49 10 6/ul (missing) HCT - HEMATOCRIT 2025-08-30 08:51 nod[facility] 52.7 % (missing) WHITE BLOOD COUNT 2025-08-30 08:51 [facility] CenterR[facility] 6.0 x10 3/ul (missing) TOTAL PROTEIN 2025-08-30 08:51 [facility] 7.6 g/dl As of April 2023 testing method has changed, this may include reference ranges. AST ASPARTATE AMINOTRANSFERASE 2025-08-30 08:51 [facility] 85 iu/l As of April 2023 testing method has changed, this may include reference ranges. GLUCOSE 2025-08-30 08:51 [facility] 89 mg/dl As of April 2023 testing method has changed, this may include reference ranges. PLT - PLATELET COUNT 2025-08-30 08:51 [facility] 92 10 3/ul (missing) GFR - MDRD 2025-08-30 08:51 [facility] 95 (missing) The IDMS-traceable MDRD Study Equation has been validated extensively in and populations between the ages of 18 and 70 with impaired kidney function (eGFR < 60 mL/min/1.73m2) and has shown good performance for patients with all common causes of kidney disease. Although this equation has not been validated for patients older than 70, an MDRD-derived eGFR may still be a useful tool for providers caring for patients older than 70. References: http://www.nkdep. nih.gov/lab-evalu ation/gfr/creatin ine-stand ardization, last updated December 2011. CHLORIDE 2025-08-30 08:51 [facility] 96 mmol/l As of April 2023 testing method has changed, this may include reference ranges. MEAN CORPUSCULAR VOLUME 2025-08-30 08:51 [facility] 96.0 fl (missing) Result panel 6 NUCLEATED RED BLOOD CELLS AUTO 2025-09-02 08:49 [facility] 0.0 /100wbc (missing) BASOPHILS # (AUTO) 2025-09-02 08:49 [facility] 0.0 10 3/ul (missing) EOSINOPHILS # (AUTO) 2025-09-02 08:49 [facility] 0.0 10 3/ul (missing) NRBC ABSOLUTE COUNT (AUTO) 2025-09-02 08:49 [facility] 0.00 x10 3/ul (missing) MONOCYTES # (AUTO) 2025-09-02 08:49 [facility] 0.4 10 3/ul (missing) LYMPHOCYTES # (AUTO) 2025-09-02 08:49 [facility] 0.7 10 3/ul (missing) CREATININE 2025-09-02 08:49 [facility] 0.7 mg/dl As of April 2023 testing method has changed, this may include reference ranges. BILIRUBIN,TOTAL 2025-09-02 08:49 [facility] 0.8 mg/dl As of April 2023 testing method has changed, this may include reference ranges. ALBUMIN/GLOBULIN RATIO 2025-09-02 08:49 [facility] 1.2 (missing) (missing) MAGNESIUM 2025-09-02 08:49 [facility] 1.6 mg/dl As of April 2023 testing method has changed, this may include reference ranges. MEAN PLATELET VOLUME 2025-09-02 08:49 [facility] 10.1 fl (missing) GFR - MDRD 2025-09-02 08:49 [facility] 111 (missing) The IDMS-traceable MDRD Study Equation has been validated extensively in and populations between the ages of 18 and 70 with impaired kidney function (eGFR < 60 mL/min/1.73m2) and has shown good performance for patients with all common causes of kidney disease. Although this equation has not been validated for patients older than 70, an MDRD-derived eGFR may still be a useful tool for providers caring for patients older than 70. References: http://www.nkdep. nih.gov/lab-evalu ation/gfr/creatin ine-stand ardization, last updated December 2011. BUN - BLOOD UREA NITROGEN 2025-09-02 08:49 [facility] 12 mg/dl As of April 2023 testing method has changed, this may include reference ranges. CALCIUM 2025-09-02 08:49 [facility] 12.9 mg/dl Critical result CA 12.9 mg/dL called to and read back by ADY Doll/DORA/MAC at 02-Sep-2025 09:12 by daniela. As of April 2023 testing method has changed, this may include reference ranges. SODIUM 2025-09-02 08:49 [facility] 129 mmol/l Unknown RED CELL DISTRIBUTION WIDTH 2025-09-02 08:49 [facility] 14.6 % (missing) HGB - HEMOGLOBIN 2025-09-02 08:49 [facility] 17.6 g/dl (missing) ALKALINE PHOSPHATASE 2025-09-02 08:49 [facility] 225 iu/l As of April 2023 testing method has changed, this may include reference ranges. ALT ALANINE AMINOTRANSFERASE 2025-09-02 08:49 [facility] 23 iu/l As of April 2023 testing method has changed, this may include reference ranges. CARBON DIOXIDE - CO2 2025-09-02 08:49 [facility] 29 mmol/l As of April 2023 testing method has changed, this may include reference ranges. GLOBULIN 2025-09-02 08:49 [facility] 3.3 g/dl (missing) NEUTROPHILS # (AUTO) 2025-09-02 08:49 [facility] 3.7 10 3/ul (missing) THYROID STIMULATING HORMONE 2025-09-02 08:49 [facility] 3.71 uiu/ml (missing) MEAN CORPUSCULAR HEMOGLOBIN 2025-09-02 08:49 [facility] 30.5 pg (missing) MEAN CORPUSCULAR HGB CONC 2025-09-02 08:49 [facility] 32.0 g/dl (missing) ALBUMIN 2025-09-02 08:49 [facility] 4.1 g/dl As of April 2023 testing method has changed, this may include reference ranges. POTASSIUM 2025-09-02 08:49 [facility] 4.4 mmol/l As of April 2023 testing method has changed, this may include reference ranges. WHITE BLOOD COUNT 2025-09-02 08:49 [facility] 4.9 x10 3/ul (missing) ANION GAP 2025-09-02 08:49 [facility] 5.0 (missing) (missing) RED BLOOD COUNT 2025-09-02 08:49 [facility] 5.77 10 6/ul (missing) HCT - HEMATOCRIT 2025-09-02 08:49 [facility] 55.0 % (missing) TOTAL PROTEIN 2025-09-02 08:49 [facility] 7.4 g/dl As of April 2023 testing method has changed, this may include reference ranges. AST ASPARTATE AMINOTRANSFERASE 2025-09-02 08:49 [facility] 83 iu/l As of April 2023 testing method has changed, this may include reference ranges. PLT - PLATELET COUNT 2025-09-02 08:49 [facility] 94 10 3/ul (missing) GLUCOSE 2025-09-02 08:49 [facility] 95 mg/dl As of April 2023 testing method has changed, this may include reference ranges. CHLORIDE 2025-09-02 08:49 [facility] 95 mmol/l As of April 2023 testing method has changed, this may include reference ranges. MEAN CORPUSCULAR VOLUME 2025-09-02 08:49 [facility] 95.3 fl (missing) Result panel 7 NUCLEATED RED BLOOD CELLS AUTO 2025-09-06 08:56 [facility] 0.0 /100wbc (missing) BASOPHILS # (AUTO) 2025-09-06 08:56 [facility] 0.0 10 3/ul (missing) EOSINOPHILS # (AUTO) 2025-09-06 08:56 [facility] 0.0 10 3/ul (missing) NRBC ABSOLUTE COUNT (AUTO) 2025-09-06 08:56 [facility] 0.00 x10 3/ul (missing) MONOCYTES # (AUTO) 2025-09-06 08:56 [facility] 0.4 10 3/ul (missing) BILIRUBIN,TOTAL 2025-09-06 08:56 [facility] 0.8 mg/dl As of April 2023 testing method has changed, this may include reference ranges. CREATININE 2025-09-06 08:56 [facility] 0.8 mg/dl As of April 2023 testing method has changed, this may include reference ranges. LYMPHOCYTES # (AUTO) 2025-09-06 08:56 [facility] 0.9 10 3/ul (missing) ALBUMIN/GLOBULIN RATIO 2025-09-06 08:56 [facility] 1.1 (missing) (missing) MEAN PLATELET VOLUME 2025-09-06 08:56 [facility] 10.9 fl (missing) GLUCOSE 2025-09-06 08:56 [facility] 100 mg/dl As of April 2023 testing method has changed, this may include reference ranges. BUN - BLOOD UREA NITROGEN 2025-09-06 08:56 51fanliidUB. 12 mg/dl As of April 2023 testing method has changed, this may include reference ranges. SODIUM 2025-09-06 08:56 [facility] 129 mmol/l Unknown CALCIUM 2025-09-06 08:56 [facility] 13.8 mg/dl Critical result CA 13.8 mg/dL called to and read back by DANIELLA Bowen/RN/MAC at 06-Sep-2025 09:25 by daniela. As of April 2023 testing method has changed, this may include reference ranges. RED CELL DISTRIBUTION WIDTH 2025-09-06 08:56 [facility] 14.7 % (missing) HGB - HEMOGLOBIN 2025-09-06 08:56 [facility] 17.4 g/dl (missing) ANION GAP 2025-09-06 08:56 [facility] 2.0 (missing) (missing) ALT ALANINE AMINOTRANSFERASE 2025-09-06 08:56 [facility] 21 iu/l As of April 2023 testing method has changed, this may include reference ranges. ALKALINE PHOSPHATASE 2025-09-06 08:56 [facility] 223 iu/l As of April 2023 testing method has changed, this may include reference ranges. GLOBULIN 2025-09-06 08:56 [facility] 3.5 g/dl (missing) NEUTROPHILS # (AUTO) 2025-09-06 08:56 [facility] 3.6 10 3/ul (missing) ALBUMIN 2025-09-06 08:56 [facility] 3.8 g/dl As of April 2023 testing method has changed, this may include reference ranges. MEAN CORPUSCULAR HEMOGLOBIN 2025-09-06 08:56 [facility] 30.4 pg (missing) MEAN CORPUSCULAR HGB CONC 2025-09-06 08:56 [facility] 31.9 g/dl (missing) CARBON DIOXIDE - CO2 2025-09-06 08:56 [facility] 32 mmol/l As of April 2023 testing method has changed, this may include reference ranges. POTASSIUM 2025-09-06 08:56 [facility] 4.6 mmol/l As of April 2023 testing method has changed, this may include reference ranges. WHITE BLOOD COUNT 2025-09-06 08:56 [facility] 4.9 x10 3/ul (missing) RED BLOOD COUNT 2025-09-06 08:56 [facility] 5.73 10 6/ul (missing) HCT - HEMATOCRIT 2025-09-06 08:56 [facility] 54.5 % (missing) TOTAL PROTEIN 2025-09-06 08:56 [facility] 7.3 g/dl As of April 2023 testing method has changed, this may include reference ranges. AST ASPARTATE AMINOTRANSFERASE 2025-09-06 08:56 [facility] 82 iu/l As of April 2023 testing method has changed, this may include reference ranges. PLT - PLATELET COUNT 2025-09-06 08:56 [facility] 92 10 3/ul (missing) GFR - MDRD 2025-09-06 08:56 [facility] 95 (missing) The IDMS-traceable MDRD Study Equation has been validated extensively in and populations between the ages of 18 and 70 with impaired kidney function (eGFR < 60 mL/min/1.73m2) and has shown good performance for patients with all common causes of kidney disease. Although this equation has not been validated for patients older than 70, an MDRD-derived eGFR may still be a useful tool for providers caring for patients older than 70. References: http://www.nkdep. nih.gov/lab-evalu ation/gfr/creatin ine-stand ardization, last updated December 2011. CHLORIDE 2025-09-06 08:56 [facility] 95 mmol/l As of April 2023 testing method has changed, this may include reference ranges. MEAN CORPUSCULAR VOLUME 2025-09-06 08:56 [facility] 95.1 fl (missing) Result panel 8 NUCLEATED RED BLOOD CELLS AUTO 2025-09-12 08:45 [facility] 0.0 /100wbc (missing) BASOPHILS # (AUTO) 2025-09-12 08:45 [facility] 0.0 10 3/ul (missing) EOSINOPHILS # (AUTO) 2025-09-12 08:45 [facility] 0.0 10 3/ul (missing) NRBC ABSOLUTE COUNT (AUTO) 2025-09-12 08:45 [facility] 0.00 x10 3/ul (missing) MONOCYTES # (AUTO) 2025-09-12 08:45 [facility] 0.4 10 3/ul (missing) CREATININE 2025-09-12 08:45 [facility] 0.6 mg/dl As of April 2023 testing method has changed, this may include reference ranges. LYMPHOCYTES # (AUTO) 2025-09-12 08:45 [facility] 0.8 10 3/ul (missing) ALBUMIN/GLOBULIN RATIO 2025-09-12 08:45 [facility] 1.1 (missing) (missing) BILIRUBIN,TOTAL 2025-09-12 08:45 [facility] 1.1 mg/dl As of April 2023 testing method has changed, this may include reference ranges. MAGNESIUM 2025-09-12 08:45 [facility] 1.3 mg/dl As of April 2023 testing method has changed, this may include reference ranges. BUN - BLOOD UREA NITROGEN 2025-09-12 08:45 [facility] 10 mg/dl As of April 2023 testing method has changed, this may include reference ranges. MEAN PLATELET VOLUME 2025-09-12 08:45 [facility] 11.1 fl (missing) SODIUM 2025-09-12 08:45 [facility] 128 mmol/l Unknown CALCIUM 2025-09-12 08:45 [facility] 13.5 mg/dl Critical result CA 13.5 mg/dL called to and read back by WILFRIDO Cruz RN/CRISTINO at 12-Sep-2025 09:27 by sandi. As of April 2023 testing method has changed, this may include reference ranges. GFR - MDRD 2025-09-12 08:45 [facility] 133 (missing) The IDMS-traceable MDRD Study Equation has been validated extensively in and populations between the ages of 18 and 70 with impaired kidney function (eGFR < 60 mL/min/1.73m2) and has shown good performance for patients with all common causes of kidney disease. Although this equation has not been validated for patients older than 70, an MDRD-derived eGFR may still be a useful tool for providers caring for patients older than 70. References: http://www.nkdep. nih.gov/lab-evalu ation/gfr/creatin ine-stand ardization, last updated December 2011. RED CELL DISTRIBUTION WIDTH 2025-09-12 08:45 [facility] 14.9 % (missing) HGB - HEMOGLOBIN 2025-09-12 08:45 [facility] 16.9 g/dl (missing) ALT ALANINE AMINOTRANSFERASE 2025-09-12 08:45 [facility] 22 iu/l As of April 2023 testing method has changed, this may include reference ranges. ALKALINE PHOSPHATASE 2025-09-12 08:45 [facility] 221 iu/l As of April 2023 testing method has changed, this may include reference ranges. CARBON DIOXIDE - CO2 2025-09-12 08:45 [facility] 27 mmol/l As of April 2023 testing method has changed, this may include reference ranges. GLOBULIN 2025-09-12 08:45 [facility] 3.4 g/dl (missing) NEUTROPHILS # (AUTO) 2025-09-12 08:45 [facility] 3.5 10 3/ul (missing) ALBUMIN 2025-09-12 08:45 [facility] 3.8 g/dl As of April 2023 testing method has changed, this may include reference ranges. MEAN CORPUSCULAR HEMOGLOBIN 2025-09-12 08:45 [facility] 30.6 pg (missing) MEAN CORPUSCULAR HGB CONC 2025-09-12 08:45 [facility] 33.0 g/dl (missing) THYROID STIMULATING HORMONE 2025-09-12 08:45 [facility] 4.24 uiu/ml (missing) POTASSIUM 2025-09-12 08:45 [facility] 4.5 mmol/l As of April 2023 testing method has changed, this may include reference ranges. WHITE BLOOD COUNT 2025-09-12 08:45 [facility] 4.8 x10 3/ul (missing) ANION GAP 2025-09-12 08:45 [facility] 5.0 (missing) (missing) RED BLOOD COUNT 2025-09-12 08:45 [facility] 5.52 10 6/ul (missing) HCT - HEMATOCRIT 2025-09-12 08:45 [facility] 51.2 % (missing) TOTAL PROTEIN 2025-09-12 08:45 [facility] 7.2 g/dl As of April 2023 testing method has changed, this may include reference ranges. AST ASPARTATE AMINOTRANSFERASE 2025-09-12:45 [facility] 83 iu/l As of April 2023 testing method has changed, this may include reference ranges. PLT - PLATELET COUNT 2025-09-12:45 [facility] 85 10 3/ul (missing) GLUCOSE 2025-09-12:45 [facility] 89 mg/dl As of April 2023 testing method has changed, this may include reference ranges. MEAN CORPUSCULAR VOLUME 2025-09-12: [facility] 92.8 fl (missing) CHLORIDE 2025-09-12: [facility] 96 mmol/l As of April 2023 testing method has changed, this may include reference ranges. Result panel 9 25-HYDROXY VITAMIN D-2 2025-09-12 [facility] <1.0 ng/ml This test was developed and its performance characteristics determined by [facility]. It has not been cleared or approved by the Food and Drug Administration. PTH-RP (PTH-RELATED PEPTIDE) 2025-09-12: [facility] <2.0 pmol/l This test was developed and its performance characteristics determined by [facility]. It has not been cleared or approved by the Food and Drug Administration. Reference Range: All Ages: <2.0 The PTHrP assay should not be used to exclude cancer or screen tumor patients for humoral hypercalcemia of malignancy (HHM). The results should always be assessed in conjunction with the patient's medical history, clinical examination, and other findings. If test results are clinically discordant, please contact the laboratory. Performed at: [facility] [address] [place] [id number] [place]: Maryam Melo MD, Phone: [phone] [id number] 2025-09-12:45 [facility] 0.4 g/dl (missing) [id number] 2025-09-12:45 [facility] 0.7 g/dl (missing) A/G RATIO 2025-09-12:45 [facility] 0.9 (missing) (missing) BETA GLOBULIN 2025-09-12:45 [facility] 1.1 g/dl (missing) GAMMA GLOBULIN 2025-09-12 09:45 [facility] 1.5 g/dl (missing) PARATHYROID HORMONE, INTACT 2025-09-12 09:45 [facility] 3 pg/ml (missing) ALBUMIN 2025-09-12 09:45 [facility] 3.2 g/dl (missing) GLOBULIN, TOTAL 2025-09-12 09:45 [facility] 3.6 g/dl (missing) 25-HYDROXY VITAMIN D 2025-09-12 09:45 [facility] 37 ng/ml Reference Range: All Ages: Target levels 30 - 100 25-HYDROXY VITAMIN D-3 2025-09-12 09:45 [facility] 37 ng/ml This test was developed and its performance characteristics determined by [facility]. It has not been cleared or approved by the Food and Drug Administration. Performed at: [facility] [address] [place] [id number] [place]: Maryam Melo MD, Phone: [phone] PROTEIN TOTAL 2025-09-12 09:45 [facility] 6.8 g/dl (missing) PLEASE NOTE 2025-09-12 09:45 [facility] Comment (missing) Protein electrophoresis scan will follow via computer, mail, or algology teacher delivery. Performed at: [place] [address], [place], [place] [id number] [place]: Julius Painter MD, Phone: [phone] Performed at: [facility] [address], [place], [place] [id number] [place]: Amna Lazo MD, Phone: [phone] M-SPIKE 2025-09-12 09:45 [facility] Comment: g/dl Faint band detected in alpha 2/beta interface region suspicious for monoclonal protein. Result panel 10 CREATININE 2025-09-19 10:43 [facility] 0.7 mg/dl As of April 2023 testing method has changed, this may include reference ranges. ALBUMIN/GLOBULIN RATIO 2025-09-19 10:43 [facility] 1.2 (missing) (missing) BILIRUBIN,TOTAL 2025-09-19 10:43 [facility] 1.2 mg/dl As of April 2023 testing method has changed, this may include reference ranges. CHLORIDE 2025-09-19 10:43 [facility] 100 mmol/l As of April 2023 testing method has changed, this may include reference ranges. AST ASPARTATE AMINOTRANSFERASE 2025-09-19 10:43 [facility] 101 iu/l As of April 2023 testing method has changed, this may include reference ranges. GFR - MDRD 2025-09-19 10:43 [facility] 111 (missing) The IDMS-traceable MDRD Study Equation has been validated extensively in and populations between the ages of 18 and 70 with impaired kidney function (eGFR < 60 mL/min/1.73m2) and has shown good performance for patients with all common causes of kidney disease. Although this equation has not been validated for patients older than 70, an MDRD-derived eGFR may still be a useful tool for providers caring for patients older than 70. References: http://www.nkdep. nih.gov/lab-evalu ation/gfr/creatin ine-stand ardization, last updated December 2011. SODIUM 2025-09-19 10:43 [facility] 132 mmol/l Unknown BUN - BLOOD UREA NITROGEN 2025-09-19 10:43 [facility] 14 mg/dl As of April 2023 testing method has changed, this may include reference ranges. CALCIUM 2025-09-19 10:43 [facility] 14.3 mg/dl Critical result [place] 14.3 mg/dL called to and read back by arron bowen/dora/mac at 19-Sep-2025 11:10 by daniela. As of April 2023 testing method has changed, this may include reference ranges. ALKALINE PHOSPHATASE 2025-09-19 10:43 [facility] 206 iu/l As of April 2023 testing method has changed, this may include reference ranges. ALT ALANINE AMINOTRANSFERASE 2025-09-19 10:43 [facility] 24 iu/l As of April 2023 testing method has changed, this may include reference ranges. CARBON DIOXIDE - CO2 2025-09-19 10:43 [facility] 27 mmol/l As of April 2023 testing method has changed, this may include reference ranges. GLOBULIN 2025-09-19 10:43 [facility] 3.3 g/dl (missing) ALBUMIN 2025-09-19 10:43 [facility] 3.9 g/dl As of April 2023 testing method has changed, this may include reference ranges. POTASSIUM 2025-09-19 10:43 [facility] 3.9 mmol/l As of April 2023 testing method has changed, this may include reference ranges. ANION GAP 2025-09-19 10:43 [facility] 5.0 (missing) (missing) TOTAL PROTEIN 2025-09-19 10:43 [facility] 7.2 g/dl As of April 2023 testing method has changed, this may include reference ranges. GLUCOSE 2025-09-19 10:43 [facility] 95 mg/dl As of April 2023 testing method has changed, this may include reference ranges. Social History date description facility
[2025-09-21 21:52] LABS: HCT - HEMATOCRIT 50.4 % (42.0-52.0); HGB - HEMOGLOBIN 16.8 g/dL (14.0-18.0); MEAN PLATELET VOLUME 11.2 fL (7.4-11.4); NRBC ABSOLUTE COUNT (AUTO) 0.00 x10^3/uL; NUCLEATED RED BLOOD CELLS AUTO 0.0 /100WBC; PLT - PLATELET COUNT 43 10^3/uL (130-450); RED CELL DISTRIBUTION WIDTH 17.2 % (12.0-15.0)
[2025-09-21 22:08] LABS: VBG PH 7.392 (7.31-7.41)
[2025-09-21 22:12] LABS: ALT ALANINE AMINOTRANSFERASE 28.0 IU/L (10-60); AST ASPARTATE AMINOTRANSFERASE 106.0 IU/L (10-42); BUN - BLOOD UREA NITROGEN 15.0 mg/dL (6-20); CARBON DIOXIDE - CO2 24.0 mmol/L (21-32); CREATININE 0.5 mg/dL (0.6-1.3); GFR - MDRD 164.0 (>89)
[2025-09-21] MEDS: SODIUM CHLORIDE 0.9% 1,000 ML IV STA ×2 (22:35→23:11)
--- NOTE | 2025-09-21 23:20 | ED Physician Documentation ---
History of Present Illness Stated complaint Stated Complaint: GEN WEAKNESS Chief complaint Chief Complaint: General History obtained from History obtained from: Patient and EMS Additonal information Additional information: Patient is a 69-year-old male brought in by EMS for altered mental status. He is only able to tell me his name and has difficulty answering any questions. EMS states has a history of chemotherapy for "metastatic cancer". They do not know what type of chemotherapy. They state it is done here. Has a port in the right upper chest that has bruising to the area. No fevers that are reported. They state that his calcium has been high. Review of Systems Status of ROS: unobtainable due to mental status Meds/Allgy Home Medications Ambulatory Orders Medication Instructions Recorded Confirmed cyclobenzaprine 10 mg tablet 10 mg PO BID 05/13/1301/28 promethazine 25 mg tablet 25 mg PO Q6H PRN Nausea / Vo miting 05/13/13 09/08/25 trazodone 100 mg tablet 300 mg PO HS 05/13/13 fentanyl 25 mcg/hr transdermal 1 patch transdermal Q72 H 06/16/25 09/08/25 patch gabapentin 100 mg PO BID 06/16/2509/08 losartan 25 mg tablet 25 mg PO BID 06/16/25 ondansetron 8 mg disintegrating 8 mg PO Q8H 07/11/25 1 11/07/24 tablet amlodipine 5 mg tablet 5 mg PO QDAY 07/13/25 betamethasone dipropionate 0.05 % 1 applic topical QDA Y PRN itching 07/13/25 09/08/25 topical cream tydbsiszpmif-xklykqrw-kzmzqw tablet 1 tab PO QDAY 05/3009/08/25 oxycodone 5 mg tablet 5 mg PO Q4H PRN pain 5 09/08/25 enoxaparin 60 mg/0.6 mL 40 mg subcut Q12H 08/18/25 1 11/09/24 subcutaneous syringe magnesium 400 mg PO DAILY 08/29/2501/28 oxycodone 5 mg tablet 5 mg PO Q6HR PRN pain #15 ta bs 09/08/25 pantoprazole 40 mg tablet,delayed 40 mg PO DAILY #90 t abs 09/08/25 release Allergies Allergies Allergy/AdvReac Type Severity Reaction Status Date / Time No Known Drug Allergies Allergy Verified 09/08/25 13:50 PFSH Active Problems All Active Problems (Updated 09/21/25 @ 23:20 by Lance Price MD) Acute alteration in mental status (Acute) Hypercalcemia (Chronic) Hematoma following procedure (Acute) Gastritis (Acute) Healthcare maintenance (Acute) Protein calorie malnutrition (Acute) Encounter for antineoplastic immunotherapy (Acute) Hepatocellular carcinoma (Acute) Complex regional pain syndrome type II of right lower limb (Acute) Low libido (Acute) Elevated PSA (Acute) Pulmonary emboli (Acute) Medical History Medical History History of tumor Eczema Hepatic fibrosis Mass of parotid gland Muscular dystrophy Psoriasis Insomnia Gout Myositis Secondary polycythemia HyperCKemia Mixed hyperlipidemia Hypertension Surgical History Surgical History H/O colonoscopy H/O bilateral inguinal hernia repair History of liver biopsy Family History Family History Mother Malignant tumor of pharynx Father Heart disease Brother CVA (cerebral vascular accident) Sister Heart disease Social History Social History (Updated 09/06/25 @ 15:19 by Clau Christy RN) Smoking Status: Former smoker If you are a former smoker, when did you quit? (Date/Year): 2000 Level: Independent Do you feel safe in your home environment?: Yes History of physical, verbal, emotional, or financial abuse?: No ETOH Use: None Substance Use: cannabis (any form) POLST Patient has POLST: No POLST CPR Status: Attempt Resuscitation (CPR) Level of Medical Intervention: Full Treatment Exam Exam Vital Signs: Vital Signs x48h Temp Pulse Resp BP Pulse Ox 09/21/25 21:23 36.8 C 93 23 144/90 H 100 Constitutional normal general appearance and no apparent distress HENMT normocephalic and head/scalp atraumatic Eyes PERRL and EOMs intact bilaterally Neck/C-Spine trachea midline Respiratory breath sounds equal bilaterally and normal respiratory effort Cardiovascular normal heart rate noted and regular rhythm noted Gastrointestinal abdomen soft to palpation, nontender to palpation and nondistended Psychiatry Oriented to person only, very slow to respond Skin skin color normal Results Vitals Vitals: Vital Signs - 24 hr 09/21/25 21:23 Temperature 36.8 C Temperature Source Tympanic Pulse Rate 93 Respiratory Rate 23 Blood Pressure 144/90 H O2 Saturation 100 O2 Source Room air Pain Intensity 4 Oxygen O2 Source Room air Labs Labs: Laboratory Tests 09/21/25 21:45 WBC 5.3 RBC 5.52 Hgb 16.8 Hct 50.4 MCV 91.3 MCH 30.4 MCHC 33.3 RDW 17.2 H Plt Count 43 L MPV 11.2 Neut # (Auto) 4.0 Lymph # (Auto) 0.[address] [place] # (Auto) 0.5 Eos # (Auto) 0.0 Baso # (Auto) 0.0 Absolute Nucleated RBC 0.00 Nucleated RBC % 0.0 VBG pH 7.392 Ionized Calcium 1.67 H* Sodium 133 L Potassium 3.8 Chloride 100 L Carbon Dioxide 24 Anion Gap 9.0 BUN 15 Creatinine 0.5 L Estimated GFR (MDRD) 164 Glucose 81 Calcium 14.1 H* Magnesium 1.4 L Total Bilirubin 1.7 H AST 106 H ALT 28 Alkaline Phosphatase 206 H Total Protein 7.2 Albumin 3.9 Globulin 3.3 Albumin/Globulin Ratio 1.2 PD Medical Decision Making ED course Complexity details: reviewed results, re-evaluated patient, considered differential and d/w patient ED course: Patient given IV fluids. Found to be hypercalcemic, total calcium 14.1, ionized calcium 1.67. Sodium mildly low at 133. Head CT with and without contrast or dered. This is pending at the time of signout. Patient signed out to Dr. Lees, see her note for final disposition. Patient is still acutely altered. This document was made in part using voice recognition software. While efforts are made to proofread this document, sound alike and grammatical errors may occur. Discharge Plan Discharge Clinical Impression: Hepatocellular carcinoma, Hypercalcemia, Acute alteration in mental status Prescriptions: No Action cyclobenzaprine 10 MG tablet 10 mg PO BID trazodone 100 MG tablet 300 mg PO HS promethazine 25 MG tablet 25 mg PO Q6H PRN (Reason: Nausea / Vomiting) losartan 25 mg tablet 25 mg PO BID Patient Comments: take 1 tablet by mouth once daily gabapentin 100 mg PO BID Patient Comments: 100 mg BID. fentanyl 25 mcg/hr patch 72 hour 1 patch transdermal Q72H Patient Comments: apply TRANSDERMALLY 1 patch AND REPLACE every 72 hours pantoprazole 40 mg tablet,delayed release (DR/EC) 40 mg PO DAILY Qty: 90 3RF oxycodone 5 mg tablet 5 mg PO Q6HR PRN (Reason: pain) Qty: 15 0RF ondansetron 8 mg tablet,disintegrating 8 mg PO Q8H amlodipine 5 mg tablet 5 mg PO QDAY betamethasone dipropionate 0.05 % cream 1 applic topical QDAY PRN (Reason: itching) oxycodone 5 mg tablet 5 mg PO Q4H PRN (Reason: pain) [id number]-wkzxhbcc-azvomy Tablet 1 tab PO QDAY enoxaparin 60 mg/0.6 mL syringe 40 mg subcut Q12H magnesium 400 mg PO DAILY Patient Comments: taking 400mg po daily Print Language: [place] Stand Alone Forms: PCP List, SBIRT
--- NOTE | 2025-09-21 23:37 | CT Report ---
PROCEDURE: CT Head W/WO INDICATIONS: confusion, metastatic ca CONTRAST: [id number] 100ML TECHNIQUE: CT of the head was performed, without and with intravenous contrast. Reformats: Coronal and sagittal. For radiation dose reduction, the following was used: automated exposure control, adjustment of mA and/or kV according to patient size. COMPARISON: CT head 06/16/2025 FINDINGS: Image quality: Diagnostic. CSF Spaces: Basal cisterns are patent. No extra-axial fluid collections. Ventricles are normal in size and shape. Brain: No midline shift. No intracranial bleeds or masses. No abnormal intracranial enhancement. Davey-white interface appears normal. Mild scattered periventricular white matter hypodensities, likely chronic ischemic change. Skull and face: Redemonstration of sclerotic focus in the left sphenoid bone (4/7), favored to reflect a bone island. Calvarium and visualized facial bones appear intact, otherwise without suspicious lesions. Sinuses: Visualized sinuses and mastoids are clear. IMPRESSION: To the limits of CT, no masses or abnormal enhancement to suggest intracranial metastatic disease. If there is high clinical suspicion, recommend further evaluation with contrast-enhanced MR, for increased sensitivity. Redemonstration of sclerotic focus in the left sphenoid bone, favored to reflect a bone island. Reviewed by: Jeanette Oliva MD on 09/21/2025 11:33 PM PST Approved by: Jeanette Oliva MD on 09/21/2025 11:33 PM PST Station ID: [id number]
--- NOTE | 2025-09-22 02:42 | ED Physician Documentation ---
ED Addendum Addendum Addendum: Patient endorsed to me by Dr. Price awaiting head CT results prior to admission for ams in setting of acute hypercalcemia. CT head shows no acute abnormality. Disposition admit Condition fair Impression 1. hypercalcemia 2. altered mental status 3. hepatocellular carcinoma Discharge Plan Discharge Patient Disposition: 66 [facility] DC/Xfer Condition: Stable Clinical Impression: Hepatocellular carcinoma, Hypercalcemia, Acute alteration in mental status Prescriptions: No Action cyclobenzaprine 10 MG tablet 10 mg PO BID trazodone 100 MG tablet 300 mg PO HS promethazine 25 MG tablet 25 mg PO Q6H PRN (Reason: Nausea / Vomiting) losartan 25 mg tablet 25 mg PO BID Patient Comments: take 1 tablet by mouth once daily gabapentin 100 mg PO BID Patient Comments: 100 mg BID. fentanyl 25 mcg/hr patch 72 hour 1 patch transdermal Q72H Patient Comments: apply TRANSDERMALLY 1 patch AND REPLACE every 72 hours pantoprazole 40 mg tablet,delayed release (DR/EC) 40 mg PO DAILY Qty: 90 3RF oxycodone 5 mg tablet 5 mg PO Q6HR PRN (Reason: pain) Qty: 15 0RF ondansetron 8 mg tablet,disintegrating 8 mg PO Q8H amlodipine 5 mg tablet 5 mg PO QDAY betamethasone dipropionate 0.05 % cream 1 applic topical QDAY PRN (Reason: itching) oxycodone 5 mg tablet 5 mg PO Q4H PRN (Reason: pain) [id number]-fjsibfev-vzokip Tablet 1 tab PO QDAY enoxaparin 60 mg/0.6 mL syringe 40 mg subcut Q12H magnesium 400 mg PO DAILY Patient Comments: taking 400mg po daily Print Language: Citizen Of [place]
--- NOTE | 2025-09-22 03:09 | ED Physician Documentation ---
ED Addendum Addendum Addendum: patient endorsed to me awaiting head ct. plan to admit for symptomatic hypercalcemia Disposition admit condition stable impression 1. AMS 2. hypercalcemia Discharge Plan Discharge Patient Disposition: [facility] DC/Xfer Condition: Stable Clinical Impression: Hepatocellular carcinoma, Hypercalcemia, Acute alteration in mental status Prescriptions: No Action cyclobenzaprine 10 MG tablet 10 mg PO BID trazodone 100 MG tablet 300 mg PO HS promethazine 25 MG tablet 25 mg PO Q6H PRN (Reason: Nausea / Vomiting) losartan 25 mg tablet 25 mg PO BID Patient Comments: take 1 tablet by mouth once daily gabapentin 100 mg PO BID Patient Comments: 100 mg BID. fentanyl 25 mcg/hr patch 72 hour 1 patch transdermal Q72H Patient Comments: apply TRANSDERMALLY 1 patch AND REPLACE every 72 hours pantoprazole 40 mg tablet,delayed release (DR/EC) 40 mg PO DAILY Qty: 90 3RF oxycodone 5 mg tablet 5 mg PO Q6HR PRN (Reason: pain) Qty: 15 0RF ondansetron 8 mg tablet,disintegrating 8 mg PO Q8H amlodipine 5 mg tablet 5 mg PO QDAY betamethasone dipropionate 0.05 % cream 1 applic topical QDAY PRN (Reason: itching) oxycodone 5 mg tablet 5 mg PO Q4H PRN (Reason: pain) [id number]-nlvvycvv-wkbtdr Tablet 1 tab PO QDAY enoxaparin 60 mg/0.6 mL syringe 40 mg subcut Q12H magnesium 400 mg PO DAILY Patient Comments: taking 400mg po daily Print Language: Wolof
[2025-09-22 04:40] LABS: IONIZED CALCIUM IF INDICATED NO
[2025-09-22] MEDS ORDERED: PROMETHAZINE 25 MG TABLET PO PRN (05:10)
[2025-09-22] MEDS ORDERED: oxyCODONE 5 MG TABLET PO PRN (05:10)
--- OUTSIDE RECORDS SUMMARY | 2025-09-22 05:28 | EXTERNAL MEDICAL SUMMARY RPT | Continuity of Care Document ---
Author Organization [facility] Address [address] [place] [id number] Phone Allergies and Intolerances date description facility reaction severity 2013-05-13 10:00 [id number]^No Known Drug Allergies^^No Known Drug Allergies^^[facility]ergy[facility] reaction[facility] (no severity) 2025-06-16 10:00 [id number]^No Known Drug Allergies^^No Known Drug Allergies^^[facility]ergy.id [facility] ([facility] reaction) (no severity) 2025-07-13 10:00 [id number]^No Known Drug Allergies^^No Known Drug Allergies^^[facility] reaction[facility] (no severity) 2025-07-21 10:00 [id number]^No Known Drug Allergies^^No Known Drug Allergies^^[facility]ergy.id [facility] (no reaction) (no severity) 2025-08-29 10:00 [id number]^No Known Drug Allergies^^No Known Drug Allergies^^allergy.id [facility] (no reaction) (no severity) 2025-09-06 10:00 [id number]^No Known Drug Allergies^^No Known Drug Allergies^^allergy.id [facility] (no reaction) (no severity) 2025-09-08 10:00 [id number]^No Known Drug Allergies^^No Known Drug Allergies^^allergy.id [facility] (no reaction) (no severity) Problems date description facility 2025-06-30 15:06 Abnormal findings on diagnostic imaging of other abdominal regions, including retroperitoneum [facility] 2025-07-13 14:17 Elevated prostate specific anti gen [PSA] [facility] 2025-07-13 14:39 Elevated prostate specific anti gen [PSA] [facility] 2025-07-26 12:54 Hypercalcemia [facility] 2025-08-19 00:05 Liver cell carcinoma [facility] 2025-08-26 07:47 Liver cell carcinoma [facility] 2025-08-26 08:48 Liver cell carcinoma [facility] 2025-08-26 09:09 Liver cell carcinoma [facility] 2025-08-27 00:01 Liver cell carcinoma [facility] 2025-08-27 00:01 [facility] 2025-08-27 00:01 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 2025-08-27 00:01 Other specified counseling [facility] [...] l adult medical examination without abnormal findings [facility] 2025-09-02 08:41 Liver cell carcinoma [facility] [...] l adult medical examination without abnormal findings [facility] 2025-09-02 09:36 Liver cell carcinoma [facility] 2025-09-02 10:38 Liver cell carcinoma [facility] 2025-09-02 10:39 Liver cell carcinoma [facility] 2025-09-02 11:03 Liver cell carcinoma [facility] 2025-09-02 11:03 Encounter for genera l adult medical examination without abnormal findings [facility] 2025-09-02 11:04 Liver cell carcinoma [facility] 2025-09-02 11:04 Encounter for genera l adult medical examination without abnormal findings [facility] 2025-09-03 12:13 Liver cell carcinoma [facility] [...] carcinoma [facility] 2025-09-09 11:24 [facility]calcemia [facility] 2025-09-09 11:25 Liver cell carcinoma [facility] 2025-09-09 11:25 [facility]calcemia [facility] 2025-09-09 11:58 Liver cell carcinoma [facility] 2025-09-09 11:58 Hypercalcemia [facility] 2025-09-09 11:58 Abnormal findings on diagnostic imaging of other abdominal regions, including retroperitoneum [facility] 2025-09-09 11:58 Laceration without f oreign body, left lower leg, initial encounter [facility] 2025-09-12 08:14 Liver cell carcinoma [facility] 2025-09-12 08:14 Hypercalcemia [facility] 2025-09-12 08:15 Liver cell carcinoma [facility] 2025-09-12 08:15 Hypercalcemia [facility] 2025-09-12 09:12 Liver cell carcinoma Lila [...] 0.4 10 3/ul (missing) CREATININE 2025-07-21 11:34 [facility] 0.7 mg/dl As of April 2023 testing method has changed, this may include reference ranges. LYMPHOCYTES # (AUTO) 2025-07-21 11:34 [facility] 1.0 10 3/ul (missing) MAGNESIUM 2025-07-21 11:34 [facility] 1.3 mg/dl As of April 2023 testing method has changed, this may include reference ranges. MEAN PLATELET VOLUME 2025-07-21 11:34 [facility] 10.9 fl (missing) PLT - PLATELET COUNT 2025-07-21 11:34 [facility] 110 10 3/ul (missing) GFR - MDRD 2025-07-21 11:34 [facility] 111 (in g) The IDFL-traceable MDRD Study Equation has been validated extensively [...] last updated December 2011. SODIUM 2025-07-21 11:34 [facility] 127 mmol/l (missing) RED CELL DISTRIBUTION WIDTH 2025-07-21 11:34 [facility] 13.3 % (mi ssing) CALCIUM 2025-07-21 11:34 [facility] 13.9 mg/dl Critical result CA 13.9 mg/dL called to and read back by YESICA Gardner/RN/ED at 21-Jul-2025 11:59 by daniela. As of April 2023 testing method has changed, this may include reference ranges. HGB - HEMOGLOBIN 2025-07-21 11:34 [facility] 17.9 g /dl (missing) CARBON DIOXIDE - CO2 2025-07-21 11:34 [facility] 25 mmol/l As of April 2023 testing method has changed, this may include reference ranges. MEAN CORPUSCULAR HEMOGLOBIN 2025-07-21 11:34 [facility] 32.1 pg (missing) MEAN CORPUSCULAR HGB CONC 2025-07-21 11:34 [facility] 33.4 g/dl (missing) BUN - BLOOD UREA NITROGEN 2025-07-21 11:34 [facility] 39 mg/dl As of Apr testing method has changed, this may include reference ranges. POTASSIUM 2025-07-21 11:34 [facility] 4.6 mmol/l As of April 2023 testing method has changed, this may include reference ranges. NEUTROPHILS # (AUTO) 2025-07-21 11:34 [facility] 4.7 10 3/ul (missing) RED BLOOD COUNT 2025-07-21 11:34 [facility] 5.57 10 6/ul (missing) HCT - HEMATOCRIT 2025-07-21 11:34 [facility] 53.6 % (missing) WHITE BLOOD COUNT 2025-07-21 11:34 [facility] 6.1 x10 3/ul (missing) ANION GAP 2025-07-21 11:34 [facility] 7.0 (missing ) (missing) GLUCOSE 2025-07-21 11:34 [facility] 95 mg/dl As of April 2023 testing method has changed, this may include reference ranges. CHLORIDE 2025-07-21 11:34 [facility] 95 mmol/l As of April 2023 testing method has changed, this may include reference ranges. MEAN CORPUSCULAR VOLUME 2025-07-21 11:34 [facility] 96.2 fl (missing) Result panel 2 NUCLEATED RED BLOOD CELLS AUTO 2025-08-18 16:48 [facility] 0.0 /100wbc (missing) BASOPHILS # (AUTO) 2025-08-18 16:48 [facility] 0.0 10 3/ul (missing) EOSINOPHILS # (AUTO) 2025-08-18 16:48 [facility] 0.0 10 3/ul (missing) NRBC ABSOLUTE COUNT (AUTO) 2025-08-18 16:48 [facility] 0.00 x10 3/ul (missing) MONOCYTES # (AUTO) 2025-08-18 16:48 [facility] 0.5 10 3/ul (missing) CREATININE 2025-08-18 16:48 [facility] 0.6 mg/dl As of April 2023 testing method has changed, this may include reference ranges. LYMPHOCYTES # (AUTO) 2025-08-18 16:48 [facility] 0.9 10 3/ul (missing) BILIRUBIN,TOTAL 2025-08-18 16:48 [facility] 1.0 mg/dl As of April 2023 testing method has changed, this may include reference ranges. ALBUMIN/GLOBULIN RATIO 2025-08-18 16:48 [facility] 1.1 (missing) (missing) GLUCOSE 2025-08-18 16:48 [facility] 106 mg/dl As of April 2023 testing method has changed, this may include reference ranges. PLT - PLATELET COUNT 2025-08-18 16:48 [facility] 118 10 3/ul (missing) BUN - BLOOD UREA NITROGEN 2025-08-18 16:48 [facility] 12 mg/dl As of April 2023 testing method has changed, this may include reference ranges. CALCIUM 2025-08-18 16:48 [facility] 12.6 mg/dl Critical result CA 12.6 mg/dL called to and read back by ADIN PATEL at 18-Aug-2025 17:41 by arslan. As of April 2023 testing method has changed, this may include reference ranges. SODIUM 2025-08-18 16:48 [facility] 129 mmol/l Unknown GFR - MDRD 2025-08-18 16:48 [facility] 133 (missing) The IDMS-traceable MDRD Study Equation [...] 2011. RED CELL DISTRIBUTION WIDTH 2025-08-18 16:48 [facility] 14.0 % (missing) HGB - HEMOGLOBIN 2025-08-18 16:48 [facility] 17.2 g/dl (missing) ALKALINE PHOSPHATASE 2025-08-18 16:48 [facility] 215 iu/l As of April 2023 testing method has changed, this may include reference ranges. ALT ALANINE AMINOTRANSFERASE 2025-08-18 16:48 [facility] 24 iu/l As of April 2023 testing method has changed, this may include reference ranges. CARBON DIOXIDE - CO2 2025-08-18 16:48 [facility] 25 mmol/l As of April 2023 testing method has changed, this may include reference ranges. GLOBULIN 2025-08-18 16:48 [facility] 3.8 g/dl (missing) MEAN CORPUSCULAR HEMOGLOBIN 2025-08-18 16:48 [facility] 31.2 pg (missing) MEAN CORPUSCULAR HGB CONC 2025-08-18 16:48 [facility] 32.9 g/dl (missing) ALBUMIN 2025-08-18 16:48 [facility] 4.3 g/dl As of April 2023 testing method has changed, this may include reference ranges. NEUTROPHILS # (AUTO) 2025-08-18 16:48 [facility] 4.4 10 3/ul (missing) POTASSIUM 2025-08-18 16:48 [facility] 4.6 mmol/l As of April 2023 testing method has changed, this may include reference ranges. ANION GAP 2025-08-18 16:48 [facility] 5.0 (missing) (missing) RED BLOOD COUNT 2025-08-18 16:48 [facility] 5.51 10 6/ul (missing) WHITE BLOOD COUNT 2025-08-18 16:48 [facility] 5.9 x10 3/ul (missing) HCT - HEMATOCRIT 2025-08-18 16:48 [facility] 52.3 % (missing) AST ASPARTATE AMINOTRANSFERASE 2025-08-18 16:48 [facility] 77 iu/l As of April 2023 testing method has changed, this may include reference ranges. TOTAL PROTEIN 2025-08-18 16:48 [facility] 8.1 g/dl As of April 2023 testing method has changed, this may include reference ranges. MEAN PLATELET VOLUME 2025-08-18 16:48 [facility] 9.7 fl (missing) MEAN CORPUSCULAR VOLUME 2025-08-18 16:48 [facility] 94.9 fl (missing) CHLORIDE 2025-08-18 16:48 [facility] 99 mmol/l As of April 2023 testing method has changed, this may include reference ranges. HCV RNA DIAG TEST INFORMATION 2025-08-18 16:48 [facility] Comment (missing) The quantitative range of this assay is 15 IU/mL to 100 million IU/mL. Performed at: - [facility] [id number] Tower Supervisor: Radha Goddard MD, Phone: [phone] HCV RNA QUANTITATION 2025-08-18 16:48 [facility] HCV Not Detected iu/ml No evidence of active HCV infection. HBsAG SCREEN 2025-08-18 16:48 [facility] Negative (missing) (missing) HEPATITIS BE ANTIGEN 2025-08-18 16:48 [facility] Negative (missing) (missing) HEPATITIS B CORE TOTAL AB 2025-08-18 16:48 [facility] Negative (missing) Performed at: [facility], [address], [place], [place] [id number] Tower Supervisor: Julius Painter MD, Phone: [phone] HEPATITIS B SURFACE AB QUAL 2025-08-18 16:48 [facility] Non Reactive (missing) Non Reactive: Not immune to HBV infection. Anti-HBs undetectable or less than 10 mIU/mL. Reactive: Evidence of HBV immunity. Anti-HBs levels greater than 10 mIU/mL. HEPATITIS C VIRUS AB 2025-08-18 16:48 [facility] Reactive (missing) HCV antibody alone does not differentiate between previously resolved infection and active infection. Equivocal and Reactive HCV antibody results should be followed up with an HCV RNA test to support the diagnosis of active HCV infection. HCV RNA LOG10 2025-08-18 16:48 [facility] TNP (missing) (missing) Result panel 3 NUCLEATED RED BLOOD CELLS AUTO 2025-08-23 09:23 [facility] 0.0 /100wbc (missing) BASOPHILS # (AUTO) 2025-08-23 09:23 [facility] 0.0 10 3/ul (missing) EOSINOPHILS # (AUTO) 2025-08-23 09:23 [facility] 0.0 10 3/ul (missing) NRBC ABSOLUTE COUNT (AUTO) 2025-08-23 09:23 [facility] 0.00 x10 3/ul (missing) MONOCYTES # (AUTO) 2025-08-23 09:23 [facility] 0.5 10 3/ul (missing) CREATININE 2025-08-23 09:23 [facility] 0.7 mg/dl As of April 2023 testing method has changed, this may include reference ranges. BILIRUBIN,TOTAL 2025-08-23 09:23 [facility] 0.8 mg/dl As of April 2023 testing method has changed, this may include reference ranges. LYMPHOCYTES # (AUTO) 2025-08-23 09:23 [facility] 0.9 10 3/ul (missing) ALBUMIN/GLOBULIN RATIO 2025-08-23 09:23 [facility] 1.3 (missing) (missing) MAGNESIUM 2025-08-23 09:23 [facility] 1.4 mg/dl As of April 2023 testing method has changed, this may include reference ranges. GFR - MDRD 2025-08-23 09:23 [facility] 111 (missing) The IDMS-traceable MDRD Study Equation [...] last updated December 2011. SODIUM 2025-08-23 09:23 [facility] 128 mmol/l Unknown CALCIUM 2025-08-23 09:23 [facility] 13.0 mg/dl Critical result CA 13.0 mg/dL called to and read back by ARRON Bowen/RN/MAC at 23-Aug-2025 09:50 by daniela. As of April 2023 testing method has changed, this may include reference ranges. RED CELL DISTRIBUTION WIDTH 2025-08-23 09:23 [facility] 14.3 % (missing) HGB - HEMOGLOBIN 2025-08-23 09:[address] 16.8 g/dl (missing) BUN - BLOOD UREA NITROGEN 2025-08-23 09:23 [facility] 17 mg/dl As of April 2023 testing method has changed, this may include reference ranges. ALT ALANINE AMINOTRANSFERASE 2025-08-23 09:23 [facility] 18 iu/l As of April 2023 testing method has changed, this may include reference ranges. ALKALINE PHOSPHATASE 2025-08-23 09:23 [facility] 200 iu/l As of April 2023 testing method has changed, this may include reference ranges. CARBON DIOXIDE - CO2 2025-08-23: [facility] 29 mmol/l As of April 2023 testing method has changed, this may include reference ranges. ANION GAP 2025-08-23 09:23 [facility] 3.0 (missing) (missing) GLOBULIN 2025-08-23 09:23 [facility] 3.2 g/dl (missing) MEAN CORPUSCULAR HEMOGLOBIN 2025-08-23 09:23 [facility] 30.8 pg (missing) MEAN CORPUSCULAR HGB CONC 2025-08-23 09:23 [facility] 32.0 g/dl (missing) NEUTROPHILS # (AUTO) 2025-08-23 09:23 [facility] 4.0 10 3/ul (missing) ALBUMIN 2025-08-23 09:23 [facility] 4.1 g/dl As of April 2023 testing method has changed, this may include reference ranges. POTASSIUM 2025-08-23:23 [facility] 4.5 mmol/l As of April 2023 testing method has changed, this may include reference ranges. WHITE BLOOD COUNT 2025-08-23 09:23 [facility] 5.4 x10 3/ul (missing) RED BLOOD COUNT 2025-08-23 09:23 [facility] 5.46 10 6/ul (missing) HCT - HEMATOCRIT 2025-08-23 09:23 [facility] 52.5 % (missing) TOTAL PROTEIN 2025-08-23 09:23 [facility] 7.3 g/dl As of April 2023 testing method has changed, this may include reference ranges. AST ASPARTATE AMINOTRANSFERASE 2025-08-23 09:23 [facility] As of April 2023 testing method has changed, this may include reference ranges. GLUCOSE 2025-08-23 09:23 [facility] 86 mg/dl As of April 2023 testing method has changed, this may include reference ranges. MEAN PLATELET VOLUME 2025-08-23 09:23 [facility] 9.0 fl (missing) PLT - PLATELET COUNT 2025-08-23 09:23 [facility] 91 10 3/ul (missing) CHLORIDE 2025-08-23 09:23 [facility] 96 mmol/l As of April 2023 testing method has changed, this may include reference ranges. MEAN CORPUSCULAR VOLUME 2025-08-23 09:23 [facility] 96.2 fl (missing) Result panel 4 NUCLEATED RED BLOOD CELLS AUTO 2025-08-26 09:04 [facility] 0.0 /100wbc (missing) BASOPHILS # (AUTO) 2025-08-26 09:04 [facility] 0.0 10 3/ul (missing) EOSINOPHILS # (AUTO) 2025-08-26 09:04 [facility] 0.0 10 3/ul (missing) NRBC ABSOLUTE COUNT (AUTO) 2025-08-26 09:04 [facility] 0.00 x10 3/ul (missing) MONOCYTES # (AUTO) 2025-08-26 09:04 [facility] 0.5 10 3/ul (missing) LYMPHOCYTES # (AUTO) 2025-08-26 09:04 [facility] 0.7 10 3/ul (missing) CREATININE 2025-08-26 09:04 [facility] 0.7 mg/dl As of April 2023 testing method has changed, this may include reference ranges. BILIRUBIN,TOTAL 2025-08-26 09:04 [facility] 0.9 mg/dl As of April 2023 testing method has changed, this may include reference ranges. ALBUMIN/GLOBULIN RATIO 2025-08-26 09:04 [facility] 1.2 (missing) (missing) MAGNESIUM 2025-08-26 09:04 [facility] 1.6 mg/dl As of April 2023 testing method has changed, this may include reference ranges. GLUCOSE 2025-08-26 09:04 [facility] 106 mg/dl As of April 2023 testing method has changed, this may include reference ranges. GFR - MDRD 2025-08-26 09:04 [facility] 111 (missing) The IDMS-traceable MDRD Study Equation [...] BUN - BLOOD UREA NITROGEN 2025-08-26 09:04 [facility] 12 mg/dl As of April 2023 testing method has changed, this may include reference ranges. CALCIUM 2025-08-26 09:04 [facility] 13.3 mg/dl Critical result CA 13.3 mg/dL called to and read back by DANIELLA Ho RN/CRISTINO at 26-Aug-2025 09:25 by sandi. As of April 2023 testing method has changed, this may include reference ranges. SODIUM 2025-08-26 09:04 [facility] 130 mmol/l Unknown RED CELL DISTRIBUTION WIDTH 2025-08-26 09:04 [facility] 14.3 % (missing) HGB - HEMOGLOBIN 2025-08-26 09:04 [facility] 17.7 g/dl (missing) ALT ALANINE AMINOTRANSFERASE 2025-08-26 09:04 [facility] 21 iu/l As of April 2023 testing method has changed, this may include reference ranges. ALKALINE PHOSPHATASE 2025-08-26 09:04 [facility] 220 iu/l As of April 2023 testing method has changed, this may include reference ranges. GLOBULIN 2025-08-26 09:04 [facility] 3.7 g/dl (missing) CARBON DIOXIDE - CO2 2025-08-26 09:04 [facility] 30 mmol/l As of April 2023 testing method has changed, this may include reference ranges. MEAN CORPUSCULAR HEMOGLOBIN 2025-08-26 09:04 [facility] 31.0 pg (missing) MEAN CORPUSCULAR HGB CONC 2025-08-26 09:04 [facility] 32.5 g/dl (missing) ALBUMIN 2025-08-26 09:04 [facility] 4.3 g/dl As of April 2023 testing method has changed, this may include reference ranges. NEUTROPHILS # (AUTO) 2025-08-26 09:04 [facility] 4.4 10 3/ul (missing) POTASSIUM 2025-08-26 09:04 [facility] 4.7 mmol/l As of April 2023 testing method has changed, this may include reference ranges. WHITE BLOOD COUNT 2025-08-26 09:04 [facility] 5.7 x10 3/ul (missing) RED BLOOD COUNT 2025-08-26 09:04 [facility] 5.71 10 6/ul (missing) HCT - HEMATOCRIT 2025-08-26 09:04 [facility] 54.4 % (missing) ANION GAP 2025-08-26 09:04 [facility] 6.0 (missing) (missing) AST ASPARTATE AMINOTRANSFERASE 2025-08-26 09:04 [facility] 78 iu/l As of April 2023 testing method has changed, this may include reference ranges. TOTAL PROTEIN 2025-08-26 09:04 [facility] 8.0 g/dl As of April 2023 testing method has changed, this may include reference ranges. MEAN PLATELET VOLUME 2025-08-26 09:04 [facility] 9.6 fl (missing) PLT - PLATELET COUNT 2025-08-26 09:04 [facility] 92 10 3/ul (missing) CHLORIDE 2025-08-26 09:04 [facility] 94 mmol/l As of April 2023 testing method has changed, this may include reference ranges. MEAN CORPUSCULAR VOLUME 2025-08-26 09:[address] 95.3 fl (missing) Result panel 5 NUCLEATED RED BLOOD CELLS AUTO 2025-08-30 08:51 [facility] 0.0 /100wbc (missing) BASOPHILS # (AUTO) 2025-08-30 08:51 [facility] 0.0 10 3/ul (missing) EOSINOPHILS # (AUTO) 2025-08-30 08:51 [facility] 0.0 10 3/ul (missing) NRBC ABSOLUTE COUNT (AUTO) 2025-08-30 08:[address] [facility] 0.00 x10 3/ul (missing) MONOCYTES # (AUTO) 2025-08-30 08:[address] [facility] 0.5 10 3/ul (missing) LYMPHOCYTES # (AUTO) 2025-08-30 08:[address] [facility] 0.8 10 3/ul (missing) CREATININE 2025-08-30 08:[address] [facility] 0.8 mg/dl As of April 2023 testing method has changed, this may include reference ranges. BILIRUBIN,TOTAL 2025-08-30 08:[address] [facility] 0.9 mg/dl As of April 2023 testing method has changed, this may include reference ranges. ALBUMIN/GLOBULIN RATIO 2025-08-30 08:[address] [facility] 1.1 (missing) (missing) MAGNESIUM 2025-08-30 08:[address] [facility] 1.5 mg/dl As of April 2023 testing method has changed, this may include reference ranges. MEAN PLATELET VOLUME 2025-08-30 08:[address] [facility] 10.6 fl (missing) SODIUM 2025-08-30 08:[address] 129 mmol/l Unknown CALCIUM 2025-08-30 08:[address] 13.1 mg/dl Critical result CA 13.1 mg/dL called to and read back by DANIELLA Bowen/RN/MAC at 30-Aug-2025 09:26 by daniela. As of April 2023 testing method has changed, this may include reference ranges. RED CELL DISTRIBUTION WIDTH 2025-08-30 08:[address] [facility] 14.6 % (missing) BUN - BLOOD UREA NITROGEN 2025-08-30 08:51 [facility] 15 mg/dl As of April 2023 testing method has changed, this may include reference ranges. HGB - HEMOGLOBIN 2025-08-30 08:51 [facility] 17.3 g/dl (missing) ALT ALANINE AMINOTRANSFERASE 2025-08-30 08:51 [facility] 20 iu/l As of April 2023 testing method has changed, this may include reference ranges. ALKALINE PHOSPHATASE 2025-08-30 08:51 [facility] 217 iu/l As of April 2023 testing method has changed, this may include reference ranges. CARBON DIOXIDE - CO2 2025-08-30 08:51 [facility] 29 mmol/l As of April 2023 testing method has changed, this may include reference ranges. GLOBULIN 2025-08-30 08:51 [facility] 3.6 g/dl (missing) MEAN CORPUSCULAR HEMOGLOBIN 2025-08-30 08:51 [facility] 31.5 pg (missing) MEAN CORPUSCULAR HGB CONC 2025-08-30 08:51 [facility] 32.8 g/dl (missing) ANION GAP 2025-08-30 08:51 [facility] 4.0 (missing) (missing) ALBUMIN 2025-08-30 08:51 [facility] 4.0 g/dl As of April 2023 testing method has changed, this may include reference ranges. NEUTROPHILS # (AUTO) 2025-08-30 08:51 [facility] 4.6 10 3/ul (missing) POTASSIUM 2025-08-30 08:[address] 4.8 mmol/l As of April 2023 testing method has changed, this may include reference ranges. RED BLOOD COUNT 2025-08-30 08:[address] [facility] 5.49 10 6/ul (missing) HCT - HEMATOCRIT 2025-08-[address] [facility] 52.7 % (missing) WHITE BLOOD COUNT 2025-08-30 08:[address] 6.0 x10 3/ul (missing) TOTAL PROTEIN 2025-08-30 08:51 [facility] 7.6 g/dl As of April 2023 testing method has changed, this may include reference ranges. AST ASPARTATE AMINOTRANSFERASE 2025-08-30 08:51 [facility] 85 iu/l As of April 2023 testing method has changed, this may include reference ranges. GLUCOSE 2025-08-30 08:51 [facility] 89 mg/dl As of April 2023 testing method has changed, this may include reference ranges. PLT - PLATELET COUNT 2025-08-30 08:51 [facility] 92 10 3/ul (missing) GFR - MDRD 2025-08-30 08:51 [facility] 95 (missing) The IDMS-traceable MDRD Study [...] last updated December 2011. CHLORIDE 2025-08-30 08:51 [facility] 96 mmol/l As of April 2023 testing method has changed, this may include reference ranges. MEAN CORPUSCULAR VOLUME 2025-08-30 08:51 [facility] 96.0 fl (missing) Result panel 6 NUCLEATED RED BLOOD CELLS AUTO 2025-09-02 08:49 [facility] 0.0 /100wbc (missing) BASOPHILS # (AUTO) 2025-09-02 08:49 [facility] 0.0 10 3/ul (missing) EOSINOPHILS # (AUTO) 2025-09-02 08:49 [facility] 0.0 10 3/ul (missing) NRBC ABSOLUTE COUNT (AUTO) 2025-09-02 08:49 [facility] 0.00 x10 3/ul (missing) MONOCYTES # (AUTO) 2025-09-02 08:49 [facility] 0.4 10 3/ul (missing) LYMPHOCYTES # (AUTO) 2025-09-02 08:49 [facility] 0.7 10 3/ul (missing) CREATININE 2025-09-02 08:49 [facility] 0.7 mg/dl As of April 2023 testing method has changed, this may include reference ranges. BILIRUBIN,TOTAL 2025-09-02 08:49 [facility] 0.8 mg/dl As of April 2023 testing method has changed, this may include reference ranges. ALBUMIN/GLOBULIN RATIO 2025-09-02 08:49 [facility] 1.2 (missing) (missing) MAGNESIUM 2025-09-02 08:49 [facility] 1.6 mg/dl As of April 2023 testing method has changed, this may include reference ranges. MEAN PLATELET VOLUME 2025-09-02 08:49 [facility] 10.1 fl (missing) GFR - MDRD 2025-09-02 08:49 [facility] 111 (missing) The IDMS-traceable MDRD Study Equation [...] BUN - BLOOD UREA NITROGEN 2025-09-02 08:49 [facility] 12 mg/dl As of April 2023 testing method has changed, this may include reference ranges. CALCIUM 2025-09-02 08:49 [facility] 12.9 mg/dl Critical result CA 12.9 mg/dL called to and read back by ADY Doll/DORA/MAC at 02-Sep-2025 09:12 by daniela. As of April 2023 testing method has changed, this may include reference ranges. SODIUM 2025-09-02 08:49 [facility] 129 mmol/l Unknown RED CELL DISTRIBUTION WIDTH 2025-09-02 08:49 [facility] 14.6 % (missing) HGB - HEMOGLOBIN 2025-09-02 08:49 [facility] 17.6 g/dl (missing) ALKALINE PHOSPHATASE 2025-09-02 08:49 [facility] 225 iu/l As of April 2023 testing method has changed, this may include reference ranges. ALT ALANINE AMINOTRANSFERASE 2025-09-02 08:49 [facility] 23 iu/l As of April 2023 testing method has changed, this may include reference ranges. CARBON DIOXIDE - CO2 2025-09-02 08:49 [facility] 29 mmol/l As of April 2023 testing method has changed, this may include reference ranges. GLOBULIN 2025-09-02 08:49 [facility] 3.3 g/dl (missing) NEUTROPHILS # (AUTO) 2025-09-02 08:49 [facility] 3.7 10 3/ul (missing) THYROID STIMULATING HORMONE 2025-09-02 08:49 [facility] 3.71 uiu/ml (missing) MEAN CORPUSCULAR HEMOGLOBIN 2025-09-02 08:49 [facility] 30.5 pg (missing) MEAN CORPUSCULAR HGB CONC 2025-09-02 08:49 [facility] 32.0 g/dl (missing) ALBUMIN 2025-09-02 08:49 [facility] 4.1 g/dl As of April 2023 testing method has changed, this may include reference ranges. POTASSIUM 2025-09-02 08:49 [facility] 4.4 mmol/l As of April 2023 testing method has changed, this may include reference ranges. WHITE BLOOD COUNT 2025-09-02 08:49 [facility] 4.9 x10 3/ul (missing) ANION GAP 2025-09-02 08:49 [facility] 5.0 (missing) (missing) RED BLOOD COUNT 2025-09-02 08:49 [facility] 5.77 10 6/ul (missing) HCT - HEMATOCRIT 2025-09-02 08:49 [facility] 55.0 % (missing) TOTAL PROTEIN 2025-09-02 08:49 [facility] 7.4 g/dl As of April 2023 testing method has changed, this may include reference ranges. AST ASPARTATE AMINOTRANSFERASE 2025-09-02 08:49 [facility] 83 iu/l As of April 2023 testing method has changed, this may include reference ranges. PLT - PLATELET COUNT 2025-09-02 08:49 [facility] 94 10 3/ul (missing) GLUCOSE 2025-09-02 08:49 [facility] 95 mg/dl As of April 2023 testing method has changed, this may include reference ranges. CHLORIDE 2025-09-02 08:49 [facility] 95 mmol/l As of April 2023 testing method has changed, this may include reference ranges. MEAN CORPUSCULAR VOLUME 2025-09-02 08:49 [facility] 95.3 fl (missing) Result panel 7 NUCLEATED RED BLOOD CELLS AUTO 2025-09-06 08:56 [facility] 0.0 /100wbc (missing) BASOPHILS # (AUTO) 2025-09-06 08:56 [facility] 0.0 10 3/ul (missing) EOSINOPHILS # (AUTO) 2025-09-06 08:56 [facility] 0.0 10 3/ul (missing) NRBC ABSOLUTE COUNT (AUTO) 2025-09-06 08:56 [facility] 0.00 x10 3/ul (missing) MONOCYTES # (AUTO) 2025-09-06 08:56 [facility] 0.4 10 3/ul (missing) BILIRUBIN,TOTAL 2025-09-06 08:56 [facility] 0.8 mg/dl As of April 2023 testing method has changed, this may include reference ranges. CREATININE 2025-09-06 08:56 [facility] 0.8 mg/dl As of April 2023 testing method has changed, this may include reference ranges. LYMPHOCYTES # (AUTO) 2025-09-06 08:56 [facility] 0.9 10 3/ul (missing) ALBUMIN/GLOBULIN RATIO 2025-09-06 08:56 [facility] 1.1 (missing) (missing) MEAN PLATELET VOLUME 2025-09-06 08:56 [facility] 10.9 fl (missing) GLUCOSE 2025-09-06 08:56 [facility] 100 mg/dl As of April 2023 testing method has changed, this may include reference ranges. BUN - BLOOD UREA NITROGEN 2025-09-06 08:56 [facility] 12 mg/dl As of April 2023 testing method has changed, this may include reference ranges. SODIUM 2025-09-06 08:56 [facility] 129 mmol/l Unknown CALCIUM 2025-09-06 08:56 [facility] 13.8 mg/dl Critical result CA 13.8 mg/dL called to and read back by DANIELLA Bowen/RN/MAC at 06-Sep-2025 09:25 by daniela. As of April 2023 testing method has changed, this may include reference ranges. RED CELL DISTRIBUTION WIDTH 2025-09-06 08:56 [facility] 14.7 % (missing) HGB - HEMOGLOBIN 2025-09-06 08:56 [facility] 17.4 g/dl (missing) ANION GAP 2025-09-06 08:56 [facility] 2.0 (missing) (missing) ALT ALANINE AMINOTRANSFERASE 2025-09-06 08:56 [facility] 21 iu/l As of April 2023 testing method has changed, this may include reference ranges. ALKALINE PHOSPHATASE 2025-09-06 08:56 [facility] 223 iu/l As of April 2023 testing method has changed, this may include reference ranges. GLOBULIN 2025-09-06 08:56 [facility] 3.5 g/dl (missing) NEUTROPHILS # (AUTO) 2025-09-06 08:56 [facility] 3.6 10 3/ul (missing) ALBUMIN 2025-09-06 08:56 [facility] 3.8 g/dl As of April 2023 testing method has changed, this may include reference ranges. MEAN CORPUSCULAR HEMOGLOBIN 2025-09-06 08:56 [facility] 30.4 pg (missing) MEAN CORPUSCULAR HGB CONC 2025-09-06 08:56 [facility] 31.9 g/dl (missing) CARBON DIOXIDE - CO2 2025-09-06 08:56 [facility] 32 mmol/l As of April 2023 testing method has changed, this may include reference ranges. POTASSIUM 2025-09-06 08:56 [facility] 4.6 mmol/l As of April 2023 testing method has changed, this may include reference ranges. WHITE BLOOD COUNT 2025-09-06 08:56 [facility] 4.9 x10 3/ul (missing) RED BLOOD COUNT 2025-09-06 08:56 [facility] 5.73 10 6/ul (missing) HCT - HEMATOCRIT 2025-09-06 08:56 [facility] 54.5 % (missing) TOTAL PROTEIN 2025-09-06 08:56 [facility] 7.3 g/dl As of April 2023 testing method has changed, this may include reference ranges. AST ASPARTATE AMINOTRANSFERASE 2025-09-06 08:56 [facility] 82 iu/l As of April 2023 testing method has changed, this may include reference ranges. PLT - PLATELET COUNT 2025-09-06 08:56 [facility] 92 10 3/ul (missing) GFR - MDRD 2025-09-06 08:56 [facility] 95 (missing) The IDMS-traceable MDRD Study Equation [...] last updated December 2011. CHLORIDE 2025-09-06 08:56 [facility] 95 mmol/l As of April 2023 testing method has changed, this may include reference ranges. MEAN CORPUSCULAR VOLUME 2025-09-06 08:56 [facility] 95.1 fl (missing) Result panel 8 NUCLEATED RED BLOOD CELLS AUTO 2025-09-12 08:45 [facility] 0.0 /100wbc (missing) BASOPHILS # (AUTO) 2025-09-12 08:45 [facility] 0.0 10 3/ul (missing) EOSINOPHILS # (AUTO) 2025-09-12 08:45 [facility] 0.0 10 3/ul (missing) NRBC ABSOLUTE COUNT (AUTO) 2025-09-12 08:45 [facility] 0.00 x10 3/ul (missing) MONOCYTES # (AUTO) 2025-09-12 08:45 [facility] 0.4 10 3/ul (missing) CREATININE 2025-09-12 08:45 [facility] 0.6 mg/dl As of April 2023 testing method has changed, this may include reference ranges. LYMPHOCYTES # (AUTO) 2025-09-12 08:45 [facility] 0.8 10 3/ul (missing) ALBUMIN/GLOBULIN RATIO 2025-09-12 08:45 [facility] 1.1 (missing) (missing) BILIRUBIN,TOTAL 2025-09-12 08:45 [facility] 1.1 mg/dl As of April 2023 testing method has changed, this may include reference ranges. MAGNESIUM 2025-09-12 08:45 [facility] 1.3 mg/dl As of April 2023 testing method has changed, this may include reference ranges. BUN - BLOOD UREA NITROGEN 2025-09-12 08:45 [facility] 10 mg/dl As of April 2023 testing method has changed, this may include reference ranges. MEAN PLATELET VOLUME 2025-09-12 08:45 [facility] 11.1 fl (missing) SODIUM 2025-09-12 08:45 [facility] 128 mmol/l Unknown CALCIUM 2025-09-12 08:45 [facility] 13.5 mg/dl Critical result CA 13.5 mg/dL called to and read back by WILFRIDO Cruz RN/CRISTINO at 12-Sep-2025 09:27 by sandi. As of April 2023 testing method has changed, this may include reference ranges. GFR - MDRD 2025-09-12 08:45 [facility] 133 (missing) The IDMS-traceable MDRD Study Equation [...] 2011. RED CELL DISTRIBUTION WIDTH 2025-09-12 08:45 [facility] 14.9 % (missing) HGB - HEMOGLOBIN 2025-09-12 08:45 [facility] 16.9 g/dl (missing) ALT ALANINE AMINOTRANSFERASE 2025-09-12 08:45 [facility] 22 iu/l As of April 2023 testing method has changed, this may include reference ranges. ALKALINE PHOSPHATASE 2025-09-12 08:45 [facility] 221 iu/l As of April 2023 testing method has changed, this may include reference ranges. CARBON DIOXIDE - CO2 2025-09-12 08:45 [facility] 27 mmol/l As of April 2023 testing method has changed, this may include reference ranges. GLOBULIN 2025-09-12 08:45 [facility] 3.4 g/dl (missing) NEUTROPHILS # (AUTO) 2025-09-12 08:45 [facility] 3.5 10 3/ul (missing) ALBUMIN 2025-09-12 08:[address] [facility] 3.8 g/dl As of April 2023 testing method has changed, this may include reference ranges. MEAN CORPUSCULAR HEMOGLOBIN 2025-09-12 08:45 [facility] 30.6 pg (missing) MEAN CORPUSCULAR HGB CONC 2025-09-12 08:45 [facility] 33.0 g/dl (missing) THYROID STIMULATING HORMONE 2025-09-12 08:45 [facility] 4.24 uiu/ml (missing) POTASSIUM 2025-09-12 08:45 [facility] 4.5 mmol/l As of April 2023 testing method has changed, this may include reference ranges. WHITE BLOOD COUNT 2025-09-12 08:45 [facility] 4.8 x10 3/ul (missing) ANION GAP 2025-09-12 08:[address] [facility] 5.0 (missing) (missing) RED BLOOD COUNT 2025-09-12 08:45 [facility] 5.52 10 6/ul (missing) HCT - HEMATOCRIT 2025-09-12 08:[address] [facility] 51.2 % (missing) TOTAL PROTEIN 2025-09-12 08:[address] [facility] 7.2 g/dl As of April 2023 testing method has changed, this may include reference ranges. AST ASPARTATE AMINOTRANSFERASE 2025-09-12 [facility] 83 iu/l As of April 2023 testing method has changed, this may include reference ranges. PLT - PLATELET COUNT 2025-09-12:45 [facility] 85 10 3/ul (missing) GLUCOSE 2025-09-12: [facility] 89 mg/dl As of April 2023 testing method has changed, this may include reference ranges. MEAN CORPUSCULAR VOLUME 2025-09-12: [facility] 92.8 fl (missing) CHLORIDE 2025-09-12 [facility] 96 mmol/l As of April 2023 testing method has changed, this may include reference ranges. Result panel 9 25-HYDROXY VITAMIN D-2 2025-09-12 [facility] <1.0 ng/ml This test was developed and its performance characteristics determined by [facility]. It has not been cleared or approved by the Food and Drug Administration. 1,25-DIHYDROXY VITAMIN D-2 2025-09-[address] [facility] <10 pg/ml This test was developed and its performance characteristics determined by [facility]. It has not been cleared or approved by the Food and Drug Administration. PTH-RP (PTH-RELATED PEPTIDE) 2025-09-12 [facility] <2.0 pmol/l This test was developed and its performance characteristics determined by [facility]. It has not been cleared or approved [...] discordant, please contact the laboratory. Performed at: [facility]) [address] [place] [address] [id number] Tower Supervisor: Maryam Melo MD, Phone: [phone] [id number] 2025-09-12:[address] [facility] 0.4 g/dl (missing) [id number] 2025-09-12 09:45 [facility] 0.7 g/dl (missing) A/G RATIO 2025-09-12 09:45 [facility] 0.9 (missing) (missing) BETA GLOBULIN 2025-09-12 09:45 [facility] 1.1 g/dl (missing) GAMMA GLOBULIN 2025-09-12 09:45 [facility] 1.5 g/dl (missing) PARATHYROID HORMONE, INTACT 2025-09-12 09:45 [facility] 3 pg/ml (missing) ALBUMIN 2025-09-12 09:45 [facility] 3.2 g/dl (missing) GLOBULIN, TOTAL 2025-09-12 09:45 [facility] 3.6 g/dl (missing) 25-HYDROXY VITAMIN D 2025-09-12 09:45 [facility] 37 ng/ml Reference Range: All Ages: Target levels 30 - 100 25-HYDROXY VITAMIN D-3 2025-09-12 09:45 [facility] 37 ng/ml This test was developed and its performance characteristics determined by [employer]. It has not been cleared or approved by the Food and Drug Administration. Performed at: [facility] ([facility]) [address] [place] [id number] Tower Supervisor: Maryam Melo MD, Phone: [phone] PROTEIN TOTAL 2025-09-12 09:45 [facility] 6.8 g/dl (missing) 1,25-DIHYDROXY VITAMIN D-3 2025-09-12 09:45 [facility] 74 pg/ml This test was developed and its performance characteristics determined by [employer]. It has not been cleared or approved by the Food and Drug Administration. Performed at: [facility] ([facility]) [address] [place] [address] [id number] Tower Supervisor: Maryam Melo MD, Phone: [phone] TOTAL 1,25-DIHYDROXYVIT FUNES D 2025-09-12 09:45 [facility] 82 pg/ml Reference Range: Adults: 21 - 65 PLEASE NOTE 2025-09-12 09:45 [facility] Comment (missing) Protein electrophoresis scan will follow via computer, mail, or entry rep delivery. Performed at: [facility] [address], [place], [place] [id number] Tower Supervisor: Julius Painter MD, Phone: [phone] Performed at: [facility] [address], [place], [place] [id number] Tower Supervisor: Amna Lazo MD, Phone: [phone] M-SPIKE 2025-09-12 09:45 [facility] Comment: g/dl Faint band detected in alpha 2/beta interface region suspicious for monoclonal protein. Result panel 10 CREATININE 2025-09-19 10:43 [facility] 0.7 mg/dl As of April 2023 testing method has changed, this may include reference ranges. ALBUMIN/GLOBULIN RATIO 2025-09-19 10:43 [facility] 1.2 (missing) (missing) BILIRUBIN,TOTAL 2025-09-19 10:43 [facility] 1.2 mg/dl As of April 2023 testing method has changed, this may include reference ranges. CHLORIDE 2025-09-19 10:43 [facility] 100 mmol/l As of April 2023 testing method has changed, this may include reference ranges. AST ASPARTATE AMINOTRANSFERASE 2025-09-19 10:43 [facility] 101 iu/l As of April 2023 testing method has changed, this may include reference ranges. GFR - MDRD 2025-09-19 10:43 [facility] 111 (missing) The IDMS-traceable MDRD Study Equation [...] last updated December 2011. SODIUM 2025-09-19 10:43 [facility] 132 mmol/l Unknown BUN - BLOOD UREA NITROGEN 2025-09-19 10:43 [facility] 14 mg/dl As of April 2023 testing method has changed, this may include reference ranges. CALCIUM 2025-09-19 10:43 [facility] 14.3 mg/dl Critical result CA 14.3 mg/dL called to and read back by arron bowen/dora/mac at 19-Sep-2025 11:10 by daniela. As of April 2023 testing method has changed, this may include reference ranges. ALKALINE PHOSPHATASE 2025-09-19 10:43 [facility] 206 iu/l As of April 2023 testing method has changed, this may include reference ranges. ALT ALANINE AMINOTRANSFERASE 2025-09-19 10:43 [facility] 24 iu/l As of April 2023 testing method has changed, this may include reference ranges. CARBON DIOXIDE - CO2 2025-09-19 10:43 [facility] 27 mmol/l As of April 2023 testing method has changed, this may include reference ranges. GLOBULIN 2025-09-19 10:43 [facility] 3.3 g/dl (missing) ALBUMIN 2025-09-19 10:43 [facility] 3.9 g/dl As of April 2023 testing method has changed, this may include reference ranges. POTASSIUM 2025-09-19 10:43 [facility] 3.9 mmol/l As of April 2023 testing method has changed, this may include reference ranges. ANION GAP 2025-09-19 10:43 [facility] 5.0 (missing) (missing) TOTAL PROTEIN 2025-09-19 10:43 [facility] 7.2 g/dl As of April 2023 testing method has changed, this may include reference ranges. GLUCOSE 2025-09-19 10:43 [facility] 95 mg/dl As of April 2023 testing method has changed, this may include reference ranges. Result panel 11 NUCLEATED RED BLOOD CELLS AUTO 2025-09-21 21:45 [facility] 0.0 /100wbc (missing) BASOPHILS # (AUTO) 2025-09-21 21:45 [facility] 0.0 10 3/ul (missing) EOSINOPHILS # (AUTO) 2025-09-21 21:45 [facility] 0.0 10 3/ul (missing) NRBC ABSOLUTE COUNT (AUTO) 2025-09-21 21:45 [facility] 0.00 x10 3/ul (missing) MONOCYTES # (AUTO) 2025-09-21 21:45 [facility] 0.5 10 3/ul (missing) CREATININE 2025-09-21 21:45 [facility] 0.5 mg/dl As of April 2023 testing method has changed, this may include reference ranges. LYMPHOCYTES # (AUTO) 2025-09-21 21:45 [facility] 0.7 10 3/ul (missing) ALBUMIN/GLOBULIN RATIO 2025-09-21 21:45 [facility] 1.2 (missing) (missing) MAGNESIUM 2025-09-21 21:45 [facility] 1.4 mg/dl As of April 2023 testing method has changed, this may include reference ranges. CALCIUM, IONIZED 2025-09-21 21:45 [facility] 1.67 mmol/l Called to ED/ANDRES CASTANEAD by Mónica Gtz MT([facility]) at 2208 09/21/25. Read back(Y/N)? Y BILIRUBIN,TOTAL 2025-09-21 21:45 [facility] 1.7 mg/dl As of April 2023 testing method has changed, this may include reference ranges. CHLORIDE 2025-09-21 21:45 [facility] 100 mmol/l As of April 2023 testing method has changed, this may include reference ranges. AST ASPARTATE AMINOTRANSFERASE 2025-09-21 21:45 [facility] 106 iu/l As of April 2023 testing method has changed, this may include reference ranges. MEAN PLATELET VOLUME 2025-09-21 21:45 [facility] 11.2 fl (missing) SODIUM 2025-09-21 21:45 [facility] 133 mmol/l (missing) CALCIUM 2025-09-21 21:45 [facility] 14.1 mg/dl Critical result CA 14.1 mg/dL called to and read back by ED/ANDRES CASTANEDA at 21-Sep-2025 22:12 by arslan. As of April 2023 testing method has changed, this may include reference ranges. BUN - BLOOD UREA NITROGEN 2025-09-21 21:45 [facility] 15 mg/dl As of April 2023 testing method has changed, this may include reference ranges. HGB - HEMOGLOBIN 2025-09-21 21:45 [facility] 16.8 g/dl (missing) GFR - MDRD 2025-09-21 21:45 [facility] 164 (missing) The IDMS-traceable MDRD Study Equation has [...] updated December 2011. RED CELL DISTRIBUTION WIDTH 2025-09-21 21:45 [facility] 17.2 % (missing) ALKALINE PHOSPHATASE 2025-09-21 21:45 [facility] 206 iu/l As of April 2023 testing method has changed, this may include reference ranges. CARBON DIOXIDE - CO2 2025-09-21 21:45 [facility] 24 mmol/l As of April 2023 testing method has changed, this may include reference ranges. ALT ALANINE AMINOTRANSFERASE 2025-09-21 21:45 [facility] 28 iu/l As of April 2023 testing method has changed, this may include reference ranges. GLOBULIN 2025-09-21 21:45 [facility] 3.3 g/dl (missing) POTASSIUM 2025-09-21 21:45 [facility] 3.8 mmol/l As of April 2023 testing method has changed, this may include reference ranges. ALBUMIN 2025-09-21 21:45 [facility] 3.9 g/dl As of April 2023 testing method has changed, this may include reference ranges. MEAN CORPUSCULAR HEMOGLOBIN 2025-09-21 21:45 [facility] 30.4 pg (missing) MEAN CORPUSCULAR HGB CONC 2025-09-21 21:45 [facility] 33.3 g/dl (missing) NEUTROPHILS # (AUTO) 2025-09-21 21:45 [facility] 4.0 10 3/ul (missing) PLT - PLATELET COUNT 2025-09-21 21:45 [facility] 43 10 3/ul (missing) WHITE BLOOD COUNT 2025-09-21 21:45 [facility] 5.3 x10 3/ul (missing) RED BLOOD COUNT 2025-09-21 21:45 [facility] 5.52 10 6/ul (missing) HCT - HEMATOCRIT 2025-09-21 21:45 [facility] 50.4 % (missing) TOTAL PROTEIN 2025-09-21 21:45 [facility] 7.2 g/dl As of April 2023 testing method has changed, this may include reference ranges. VBG PH 2025-09-21 21:45 [facility] 7.392 (missing) (missing) GLUCOSE 2025-09-21 21:45 [facility] 81 mg/dl As of April 2023 testing method has changed, this may include reference ranges. ANION GAP 2025-09-21 21:45 [facility] 9.0 (missing) (missing) MEAN CORPUSCULAR VOLUME 2025-09-21 21:45 [facility] 91.3 fl (missing) Result panel 12 CALCIUM 2025-09-22 00:06 [facility] 13.4 mg/dl Critical result CA 13.4 mg/dL called to and read back by MAI/ANDRES CASTANEDA at 22-Sep-2025 00:30 by arslan. As of April 2023 testing method has changed, this may include reference ranges. IONIZED CALCIUM IF INDICATED 2025-09-22 00:06 [facility] NO (missing) (missing) Social History date description facility
[2025-09-22] MEDS ORDERED: ENOXAPARIN 60 MG/0.6 ML SYRINGE SUBQ SCH (06:00)
[2025-09-22] MEDS: SODIUM CHLORIDE 0.9% 1,000 ML IV SCH (06:07)
[2025-09-22] MEDS: PANTOPRAZOLE 40 MG TABLET PO SCH (06:30)
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
[2025-09-22] MEDS ORDERED: MORPHINE 10 MG/ML VIAL IVP PRN (06:43)
[2025-09-22 06:44] LABS: CHOL/HDL RATIO 13.2 (<5.0); LDL/HDL RATIO 11.4 (<3.6); VLDL CHOLESTEROL 24 mg/dL
[2025-09-22] MEDS: fentaNYL 25 MCG PATCH TOP SCH (06:54)
[2025-09-22 07:39] LABS: GLUCOSE, URINE (UA) Negative (NEGATIVE); KETONES,URINE (UA) 15 mg/dL (NEGATIVE); OCCULT BLOOD,URINE Trace-intact (NEGATIVE)
[2025-09-22 07:56] LABS: SQUAMOUS EPITHELIAL CELL,UR RARE Squamous (<= Few)
[2025-09-22 08:13] LABS: HCT - HEMATOCRIT 51.7 % (42.0-52.0); HGB - HEMOGLOBIN 17.0 g/dL (14.0-18.0); MEAN PLATELET VOLUME 9.6 fL (7.4-11.4); PLT - PLATELET COUNT 50.0 10^3/uL (130-450); RED CELL DISTRIBUTION WIDTH 17.8 % (12.0-15.0)
[2025-09-22 08:14] LABS: VBG PH 7.366 (7.31-7.41)
[2025-09-22] MEDS: LOSARTAN 50 MG TABLET PO SCH (08:46)
[2025-09-22] MEDS: MAGNESIUM OXIDE 400 MG TABLET PO SCH (08:46)
[2025-09-22] MEDS: GABAPENTIN 100 MG CAPSULE PO SCH (08:46)
[2025-09-22] MEDS: MULTIVITAMIN W/MINERALS TABLET PO SCH (08:46)
[2025-09-22] MEDS: MORPHINE 4 MG/ML VIAL IVP PRN (11:23)
[2025-09-22 11:37] LABS: ESTIMATED AVERAGE GLUCOSE 97 mg/dL (70-100); HEMOGLOBIN A1c% 5.0 % (4.27-6.07)
--- NOTE | 2025-09-22 11:50 | PHARMACY PROGRESS NOTE ---
Best Possible Medication History Admit Date and Time: 09/22/25 0514 Home Medications Medication Instructions Recorded Confirmed Type cyclobenzaprine 10 mg tablet 10 mg PO TID PRN muscle s pasm 05/13/13 09/22/25 History trazodone 100 mg tablet 350 mg PO HS 05/13/13 History fentanyl 25 mcg/hr transdermal 1 patch transdermal Q72 H 06/16/25 09/22/25 History patch ondansetron 8 mg disintegrating 8 mg PO Q8H 07/11/25 1 11/23/24 History tablet amlodipine 5 mg tablet 5 mg PO DAILY 07/13/2509/22 History betamethasone dipropionate 0.05 % 1 applic topical TIERNEY LY PRN itching 07/13/25 09/22/25 History topical cream bjpyihheslpr-vmlgvaud-rcpaoz tablet 1 tab PO DAILY 05/3009/22/25 History magnesium 400 mg PO DAILY 08/29/25 History oxycodone 5 mg tablet 5 mg PO Q6HR PRN pain #15 ta bs 09/08/25 09/22/25 Rx pantoprazole 40 mg tablet,delayed 40 mg PO DAILY #90 t abs 09/08/25 09/22/25 Rx release enoxaparin 40 mg/0.4 mL 40 mg subcut BID 09/22/25 History subcutaneous syringe gabapentin 100 mg capsule 200 mg PO BID 09/22/2509/22 History losartan 50 mg tablet 50 mg PO BID 09/22/25 History Processed by: Pharmacy Medications reviewed in ED?: No Medication History completed: Yes Patient Interview: Pt unable to participate Secondary Source(s): Written medication list (medication list from [facility]) and Insurance records [facility] Statement: As the person ultimately responsible for medication therapy, providers are able to order a medication from an existing home medication list in [facility] via the "Reconcile Routine" prior to Confirmation of that medication by lab support service tech. Such practice is discouraged except when the physician, in their clinical judgment, deems that a medical need exists for a medication without regard to previous use.
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
[2025-09-22] MEDS ORDERED: GADOTERATE MEGLUMINE 7.5 MMOL/15 ML VIAL ONE (17:32)
[2025-09-22] MEDS: GADOTERATE MEGLUMINE 7.5 MMOL/15 ML VIAL IVP ONE (18:19)
--- NOTE | 2025-09-22 19:05 | MRI Report ---
PROCEDURE: MRI Brain W/WO INDICATIONS: Please evaluate for mets CONTRAST: Clariscan 11.4 ml TECHNIQUE: Multiplanar, multisequence MRI of the brain was obtained with and without intravenous contrast. COMPARISON: Correlation is made with head CT, 09/21/2025 FINDINGS: Image quality: Significant motion artifact is noted. CSF spaces: Basal cisterns are patent. No extra-axial fluid collections. Ventricles are normal in size and shape. Brain: No midline shift. No intracranial bleeds or masses. No abnormal intracranial enhancement. The brainstem appears normal. Diffusion-weighted images demonstrate no acute ischemic insults. No chronic ischemic insults. Normal intravascular flow voids are present. Symmetric calcification of the basal ganglia can be seen, which is considered to be within normal limits for age. Skull and face: The calvarial marrow is normal in signal. Orbits appear normal. Sinuses: Sinuses and mastoids appear clear. IMPRESSION: To the limits of the study with significant motion artifact, no masses or abnormal enhancement can be seen. Reviewed by: Stanton Pedersen MD on 09/22/2025 6:01 PM [facility] Approved by: Stanton Pedersen MD on 09/22/2025 6:01 PM [facility] Station ID: [id number]
[2025-09-23 05:46] LABS: HCT - HEMATOCRIT 51.3 % (42.0-52.0); HGB - HEMOGLOBIN 17.3 g/dL (14.0-18.0); MEAN PLATELET VOLUME 9.1 fL (7.4-11.4); NRBC ABSOLUTE COUNT (AUTO) 0.00 x10^3/uL; NUCLEATED RED BLOOD CELLS AUTO 0.0 /100WBC; PLT - PLATELET COUNT 51 10^3/uL (130-450); RED CELL DISTRIBUTION WIDTH 17.7 % (12.0-15.0)
[2025-09-23 06:25] LABS: ALT ALANINE AMINOTRANSFERASE 29.0 IU/L (10-60); AST ASPARTATE AMINOTRANSFERASE 106.0 IU/L (10-42); BUN - BLOOD UREA NITROGEN 14.0 mg/dL (6-20); CARBON DIOXIDE - CO2 25.0 mmol/L (21-32); CREATININE 0.6 mg/dL (0.6-1.3); GFR - MDRD 133.0 (>89)
[2025-09-23] MEDS: GABAPENTIN 100 MG CAPSULE PO SCH (09:32)
[2025-09-23] MEDS: LOSARTAN 50 MG TABLET PO SCH (09:32)
[2025-09-23] MEDS: ENOXAPARIN 40 MG/0.4 ML SYRINGE SUBQ SCH (09:33)
[2025-09-23] MEDS: GABAPENTIN 100 MG CAPSULE PO ONE (10:10)
[2025-09-23] MEDS: LOSARTAN 50 MG TABLET PO ONE (10:10)
--- NOTE | 2025-09-23 10:11 | PROVIDER PROGRESS NOTE ---
Subjective Subjective Subjective: This morning, patient is intermittently confused. He states that he is not in pain. When asked why he did not eat breakfast, he states is because his stomach is hurting. He does not want any pain medications. Spoke with him and his at bedside. The especially would like to see his mental status improved so he can meaningfully interact with goals of care discussions. We also spoke extensively with Liv with palliative care. He is a DNR with selective treatment at this time. They are considering hospice, but the would like the patient to more meaningfully participate in the decision making. Current Medications Current Medications Current Medications: Current Medications Generic Name Dose Route Start Last Admin Trade Name Freq PRN Reason Stop Dose Admin Amlodipine Besylate 5 mg 09/22/25 09:00 09/23/25 08:11 Amlodipine 5 Mg Tablet PO 5 mg DAILY LOURDES Administration Enoxaparin Sodium 40 mg 09/23/25 09:00 09/23/25 09:33 Enoxaparin 40 Mg/0.4 Ml Syringe SUBQ Not Given BID LOURDES Fentanyl 1 patch 09/22/25 06:00 09/22/25 06:54 Fentanyl 25 Mcg Patch TOP 1 patch Q72H LOURDES Administration Gabapentin 200 mg 09/23/25 09:00 09/23/25 09:32 Gabapentin 100 Mg Capsule PO Not Given BID LOURDES Sodium Chloride 1,000 mls @ 100 mls/hr 09/22/25 06:00 09/23/25 10:07 Normal Saline 0.9% IV 100 mls/hr .Q10H LOURDES Infusion Losartan Potassium 50 mg 09/23/25 09:00 09/23/25 09:32 Losartan 50 Mg Tablet PO Not Given BID LOURDES Magnesium Oxide 400 mg 09/22/25 08:00 09/23/25 08:11 Magnesium Oxide 400 Mg Tablet PO 400 mg DAILYWM LOURDES Administration Multivitamins/Minerals 1 tab 09/22/25 08:00 09/23/25 08:11 Multivitamin W/Minerals Tablet PO 1 tab DAILYWM LOURDES Administration Pantoprazole Sodium 40 mg 09/22/25 07:00 09/23/25 05:39 Pantoprazole 40 Mg Tablet PO 40 mg 0700 LOURDES Administration Objective Vital Signs/Intake & Output Reviewed Vital Signs: Yes Vital Signs: Vital Signs x48h Temp Pulse Pulse Resp BP Pulse Ox 09/23/25 07:57 98.1 F 95 20 170/100 H 94 09/23/25 05:00 97.7 F 88 17 149/91 H 94 Intake & Output: Intake & Output 09/20/25 09/21/25 09/22/25 09/23/25 23:59 23:59 23:59 23:59 Intake Total 5403 / 5403 1903 / 1903 Output Total 950 / 950 150 / 150 Balance 4453 / 4453 1753 / 1753 Weight (kg) 59.745 kg 58 kg Objective General Appearance: positive No acute distress, Alert and Other (Frail, appears older than stated age. Obvious temporal wasting noted. Very hard of hearing.); negative Anxious Eyes Bilateral: positive Normal inspection, PERRL and EOMI ENT: positive ENT inspection nml, Pharynx nml and No signs of dehydration Neck: positive Nml inspection, Thyroid nml and No JVD Respiratory: positive Chest non-tender, No respiratory distress and Breath sounds nml; negative Wheezes, Rales or Rhonchi Cardiovascular: positive Regular rate & rhythm, No murmur and No gallop; negative Tachycardia or Systolic murmur Abdomen: positive Non-tender, No organomegaly, No distention and Other (Mild tenderness in epigastric and right upper quadrant region. No overt rebound tenderness noted. No guarding or rigidity noted.); negative Guarding or Splenomegaly Back: positive Nml inspection; negative CVA tenderness (R) or CVA tenderness (L) Skin: positive Color nml, No rash, Warm and Dry Extremities: positive Non-tender, Full ROM, Nml appearance and Pedal edema (1+ bilaterally) Neurologic/Psychiatric: positive Oriented x3, Motor nml, Weakness and Other (Slow to respond. Intermittently A&O x3. ) Lab Results 09/23/25 05:32 09/23/25 05:32 Other Labs: Lab Results x24hrs 09/23/25 09/22/25 09/21/25 Range/Units 05:32 06:10 21:45 WBC 6.1 (4.8-10.8) x10^3/uL RBC 5.62 (4.70-6.10) 10^6/uL Hgb 17.3 (14.0-18.0) g/dL Hct 51.3 (42.0-52.0) % MCV 91.3 (80.0-94.0) fL MCH 30.8 (27.0-31.0) pg MCHC 33.7 (32.0-36.0) g/dL RDW 17.7 H (12.0-15.0) % Plt Count 51 L (130-450) 10^3/uL MPV 9.1 (7.4-11.4) fL Neut # (Auto) 4.4 (1.5-6.6) 10^3/uL Lymph # (Auto) 0.8 L (1.5-3.5) 10^3/uL [place] # (Auto) 0.6 (0.0-1.0) 10^3/uL Eos # (Auto) 0.1 (0.0-0.7) 10^3/uL Baso # (Auto) 0.1 (0.0-0.1) 10^3/uL Absolute Nucleated RBC 0.00 x10^3/uL Nucleated RBC % 0.0 /100WBC Sodium 137 (135-145) mmol/L Potassium 3.5 (3.5-4.5) mmol/L Chloride 104 (101-111) mmol/L Carbon Dioxide 25 (21-32) mmol/L Anion Gap 8.0 (6-13) BUN 14 (6-20) mg/dL Creatinine 0.6 (0.6-1.3) mg/dL Estimated GFR (MDRD) 133 (>89) Glucose 93 (74-104) mg/dL Estimat Average Glucose 97 (70-100) mg/dL Hemoglobin A1c % 5.0 (4.27-6.07) % Calcium 13.4 H* (8.5-10.3) mg/dL Magnesium 1.3 L (1.7-2.3) mg/dL Total Bilirubin 1.7 H (0.2-1.0) mg/dL AST 106 H (10-42) IU/L ALT 29 (10-60) IU/L Alkaline Phosphatase 221 H (42-121) IU/L Total Protein 6.8 (6.4-8.9) g/dL Albumin 3.8 (3.2-5.5) g/dL Globulin 3.0 (2.1-4.2) g/dL Albumin/Globulin Ratio 1.3 (1.0-2.2) Nasal Screen MRSA (PCR) NEGATIVE (NEGATIVE) Diagnostic Imaging Diagnostic Imaging Results: positive Final report reviewed Assessment/Plan Problem List (1) Acute metabolic encephalopathy: (2) Hypercalcemia: Impression: Patient presented with altered mental status. He has had some discoordination, and is very slow to respond, which states is a departure from his normal. Attributed to hypercalcemia. His calcium has been elevated as high as 14.3, even in the outpatient since 07/30. Started on IV fluids. Will receive a dose of IV Zometa today. CT head was negative. MRI from 06/30 was negative. MRI repeated this admission, negative for any strokes, metastasis, bleeds etc. Will reassess if IV Zometa helps with mentation. Continue gentle IV fluid rehydration. Ongoing continued discussion about overall goals of care. Palliative care has been consulted. They are considering hospice, but would like to see if patient's mentation improves with improvement of hypercalcemia and is more participatory in conversations about goals of care. (3) Pulmonary emboli: Impression: Continue home Lovenox. Qualifiers: Pulmonary embolism type: multiple subsegmental (without acute cor pulmonale) Qualified Code(s): I26.94 - Multiple subsegmental thrombotic pulmonary emboli without acute cor pulmonale (4) Hepatocellular carcinoma: Impression: Patient with history of hepatitis C, and recent diagnosis of biopsy-proven poorly differentiated hepatocellular carcinoma, stage IV. This is complicated by hepatic vein/IVC thrombus and pulmonary emboli, on Lovenox. Recently received immunotherapy on 09/12. Plan for PET scan. Goals of care discussion with palliative care as outlined above. Continue fentanyl patch for pain control. (5) Severe protein-calorie malnutrition: Impression: Visible muscle fat wasting in upper extremities. Weight loss of 3 kg in 3 months or about 5% of body weight. Encourage P.O. intake. (6) Hypertension: Impression: Continue losartan and amlodipine. Qualifiers: Hypertension type: unspecified Qualified Code(s): I10 - Essential (primary) hypertension
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
[2025-09-23] MEDS: ZOLEDRONIC ACID 4 MG/100 ML 4 MG/100 ML BAG IV ONE (13:05)
--- NOTE | 2025-09-23 16:23 | PT Plan of Care ---
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 Head CT and MRI negative for acute process. Admitted with hypercalcemia. Cleared for eval by hospitalist. Upon PT eval pt is somnolent but rousable. Per nsg, pt has been able to ambulate to bathroom with FWW and nsg assistance. Pt has minimal cue following during PT eval d/t somnolence and [place]. He is able to stand with FWW and modAx1, marches in place but immediately retropulsive and requires modAx1 to sit to chair safely. Given somnolence and limited cue following, mobility assessment stopped at this point. PT discusses home safety with pt as able and pts who is present throughout eval. She is working on setting home up for 1st level living and may obtain a hospital bed. Given impairments in mobility and alertness, pt may benefit from continued PT to improve safety and functional mobility. When medically clear, PT rec dc to SNF vs LTC pending ability to participate in rehab. Goals Improve bed mobility to: Minimal Assist Improve supine to sit to: Minimal Assist Improve sit to stand to: Minimal Assist Improve pivot transfer ability Minimal Assist to: Improve sit to supine to: Minimal Assist Improve gait ability to: Min A Assistive Device Used: Front Wheeled Walker Improve Sitting Balance to: Good Improve Standing Balance to: Fair PT Plan of Care Frequency 1-2x/day Duration Until discharge Discharge Recommendations Discharge Location SNF vs LTC Other TBD Transport Needs at Discharge B.L.S Other BLS d/t retropulsion, high fall risk, confusion. may progress to POV when more medically stable
[2025-09-24 05:16] LABS: HCT - HEMATOCRIT 50.1 % (42.0-52.0); HGB - HEMOGLOBIN 16.4 g/dL (14.0-18.0); PLT - PLATELET COUNT 43 10^3/uL (130-450); RED CELL DISTRIBUTION WIDTH 18.0 % (12.0-15.0)
[2025-09-24 06:14] LABS: ALT ALANINE AMINOTRANSFERASE 31.0 IU/L (10-60); AST ASPARTATE AMINOTRANSFERASE 111.0 IU/L (10-42); BUN - BLOOD UREA NITROGEN 12.0 mg/dL (6-20); CARBON DIOXIDE - CO2 25.0 mmol/L (21-32); CREATININE 0.5 mg/dL (0.6-1.3); GFR - MDRD 164.0 (>89)
--- NOTE | 2025-09-24 07:44 | PROVIDER PROGRESS NOTE ---
Subjective Subjective Subjective: Today, patient is much more awake and conversive. He has a better handle on what is going on. His is at bedside, and we had discussion about next steps. The patient states that he would like to continue immunotherapy at this time, and pursue medical management to see if there is any improvement in his cancer. He understands that he is tired, and that his is unable to care for him. If there are any further episodes like this, he is open to considering hospice, but is not ready for at this time. Will continue goals of care conversation. Today, he is medically cleared. Plan will be SNF, likely. He will need continued and close follow-up with palliative care, oncology. Appears that his next dose of immunotherapy is October 09; ideally, he would go to SNF from here, and then be discharged in time to make this appointment. Current Medications Current Medications Current Medications: Current Medications Generic Name Dose Route Start Last Admin Trade Name Freq PRN Reason Stop Dose Admin Amlodipine Besylate 5 mg 09/22/25 09:00 09/23/25 08:11 Amlodipine 5 Mg Tablet PO 5 mg DAILY LOURDES Administration Enoxaparin Sodium 40 mg 09/23/25 09:00 09/23/25 20:43 Enoxaparin 40 Mg/0.4 Ml Syringe SUBQ Not Given BID LOURDES Fentanyl 1 patch 09/22/25 06:00 09/22/25 06:54 Fentanyl 25 Mcg Patch TOP 1 patch Q72H LOURDES Administration Gabapentin 200 mg 09/23/25 09:00 09/23/25 20:39 Gabapentin 100 Mg Capsule PO 200 mg BID LOURDES Administration Sodium Chloride 1,000 mls @ 100 mls/hr 09/22/25 06:00 09/24/25 00:25 Normal Saline 0.9% IV 100 mls/hr .Q10H LOURDES Administration Magnesium Sulfate 2 gm in 50 mls @ 25 mls/hr 09/24/25 08:00 Magnesium Sulfate IV 09/24/25 11:59 Q2H LOURDES Losartan Potassium 50 mg 09/23/25 09:00 09/23/25 20:39 Losartan 50 Mg Tablet PO 50 mg BID LOURDES Administration Magnesium Oxide 400 mg 09/22/25 08:00 09/23/25 08:11 Magnesium Oxide 400 Mg Tablet PO 400 mg DAILYWM LOURDES Administration Multivitamins/Minerals 1 tab 09/22/25 08:00 09/23/25 08:11 Multivitamin W/Minerals Tablet PO 1 tab DAILYWM LOURDES Administration Pantoprazole Sodium 40 mg 09/22/25 07:00 09/24/25 06:21 Pantoprazole 40 Mg Tablet PO 40 mg 0700 LOUREDS Administration Potassium Chloride 20 meq 09/24/25 08:00 Potassium Chloride 20 Meq/15 Ml Udc PO 09/24/25 08:01 ONCE ONE Objective Vital Signs/Intake & Output Reviewed Vital Signs: Yes Vital Signs: Vital Signs x48h Temp Pulse Resp BP BP Pulse Ox 09/24/25 07:33 98 171/100 H 09/24/25 07:30 98.1 F 100 20 174/104 H 96 09/24/25 04:06 97.7 F 96 18 160/99 H 95 09/23/25 23:48 98.2 F 94 18 150/91 H 95 Intake & Output: Intake & Output 09/21/25 09/22/25 09/23/25 09/24/25 23:59 23:59 23:59 23:59 Intake Total 5403 / 5403 2676 / 2676 1000 / 1000 Output Total 950 / 950 1150 / 1150 525 / 525 Balance 4453 / 4453 1526 / 1526 475 / 475 Weight (kg) 59.745 kg 58 kg 58 kg Objective General Appearance: positive No acute distress, Alert and Other (Frail, appears older than stated age. Obvious temporal wasting noted. Very hard of hearing.); negative Anxious Eyes Bilateral: positive Normal inspection, PERRL and EOMI ENT: positive ENT inspection nml, Pharynx nml and No signs of dehydration Neck: positive Nml inspection, Thyroid nml and No JVD Respiratory: positive Chest non-tender, No respiratory distress and Breath sounds nml; negative Wheezes, Rales or Rhonchi Cardiovascular: positive Regular rate & rhythm, No murmur and No gallop; negative Tachycardia or Systolic murmur Abdomen: positive Non-tender, No organomegaly, No distention and Other (Mild tenderness in epigastric and right upper quadrant region. No overt rebound tenderness noted. No guarding or rigidity noted.); negative Guarding or Splenomegaly Back: positive Nml inspection; negative CVA tenderness (R) or CVA tenderness (L) Skin: positive Color nml, Warm, Dry and Other (Diffuse scaly erythematous rash noted on bilateral upper and lower extremities-chronic, per , longstanding history of eczema.) Extremities: positive Non-tender, Full ROM, Nml appearance and Pedal edema (1+ bilaterally) Neurologic/Psychiatric: positive Oriented x3, Motor nml, Weakness and Other (Intermittently A&O x3. ) Lab Results 09/24/25 04:28 09/24/25 05:49 Other Labs: Lab Results x24hrs 09/24/25 09/24/25 Range/Units 05:49 04:28 WBC 4.9 (4.8-10.8) x10^3/uL RBC 5.46 (4.70-6.10) 10^6/uL Hgb 16.4 (14.0-18.0) g/dL Hct 50.1 (42.0-52.0) % MCV 91.8 (80.0-94.0) fL MCH 30.0 (27.0-31.0) pg MCHC 32.7 (32.0-36.0) g/dL RDW 18.0 H (12.0-15.0) % Plt Count 43 L (130-450) 10^3/uL Sodium 137 (135-145) mmol/L Potassium 3.2 L (3.5-4.5) mmol/L Chloride 104 (101-111) mmol/L Carbon Dioxide 25 (21-32) mmol/L Anion Gap 8.0 (6-13) BUN 12 (6-20) mg/dL Creatinine 0.5 L (0.6-1.3) mg/dL Estimated GFR (MDRD) 164 (>89) Glucose 88 (74-104) mg/dL Calcium 12.7 H* (8.5-10.3) mg/dL Magnesium 1.1 L (1.7-2.3) mg/dL Total Bilirubin 1.7 H (0.2-1.0) mg/dL AST 111 H (10-42) IU/L ALT 31 (10-60) IU/L Alkaline Phosphatase 217 H (42-121) IU/L Total Protein 6.5 (6.4-8.9) g/dL Albumin 3.5 (3.2-5.5) g/dL Globulin 3.0 (2.1-4.2) g/dL Albumin/Globulin Ratio 1.2 (1.0-2.2) Diagnostic Imaging Diagnostic Imaging Results: positive Final report reviewed Assessment/Plan Problem List (1) Acute metabolic encephalopathy: (2) Hypercalcemia: Impression: Resolved 09/24, although likely will continue to be intermittent. Patient presented with altered mental status. He had some discoordination, and is very slow to respond, which states is a departure from his normal. Attributed to hypercalcemia. His calcium has been elevated as high as 14.3, even in the outpatient since 07/30. Started on IV fluids. Received a dose of IV Zometa 09/23 with improvement in calcium, and subsequently mental status. CT head was negative. MRI from 06/30 was negative. MRI repeated this admission, negative for any strokes, metastasis, bleeds etc. Continue gentle IV fluid rehydration. Ongoing continued discussion about overall goals of care. Palliative care has been consulted, and will continue to follow in the outpatient. Current goals of care are a DO NOT RESUSCITATE, selective treatment. Patient would like to continue with immunotherapy at this time. He understands that palliative care will continue to follow-up with him, and that hospice is always an option. (3) Pulmonary emboli: Impression: Continue home Lovenox. Qualifiers: Pulmonary embolism type: multiple subsegmental (without acute cor pulmonale) Qualified Code(s): I26.94 - Multiple subsegmental thrombotic pulmonary emboli without acute cor pulmonale (4) Hepatocellular carcinoma: Impression: Patient with history of hepatitis C, and recent diagnosis of biopsy-proven poorly differentiated hepatocellular carcinoma, stage IV. This is complicated by hepatic vein/IVC thrombus and pulmonary emboli, on Lovenox. Recently received immunotherapy on 09/12. Plan for PET scan. Goals of care discussion with palliative care as outlined above. Continue fentanyl patch for pain control. Oxycodone as needed added. (5) Severe protein-calorie malnutrition: Impression: Visible muscle fat wasting in upper extremities. Weight loss of 3 kg in 3 months or about 5% of body weight. Encourage P.O. intake. (6) Hypertension: Impression: Continue losartan and amlodipine. Qualifiers: Hypertension type: unspecified Qualified Code(s): I10 - Essential (primary) hypertension
[2025-09-24] MEDS: POTASSIUM CHLORIDE 20 MEQ/15 ML UDC PO ONE (08:02)
[2025-09-24] MEDS: MAGNESIUM SULFATE 2 GRAM 2 GM/50 ML BAG IV SCH (08:03)
[2025-09-24] MEDS: oxyCODONE 5 MG TABLET PO PRN (11:56)
[2025-09-24] MEDS: CLOTRIMAZOLE/BETAMETHASONE 15 GM TUBE TOP SCH (20:18)
[2025-09-25] MEDS: ONDANSETRON 4 MG/2 ML VIAL IVP PRN (00:39)
[2025-09-25] MEDS: SODIUM CHLORIDE FLUSH 0.9% 10 ML SYRINGE IVP PRN (00:43)
--- NOTE | 2025-09-25 01:16 | PROVIDER PROGRESS NOTE ---
Hospitalist Cross-cover Note Cross-Cover Note Cross-Cover Note: per rn " Pt in for hypercalcemia. Pt still restless and anxious, attempts to get up and out of bed every 30 minutes. Pt is unsteady on his own, impulsive, and highly forgetful to advice and instructions given. Zofran given for abdominal pain and nausea. Would you like to order any medication to ease restlessness? Last oxycodone given at 2304. Please write orders as you see fit." ativan x1
--- NOTE | 2025-09-25 03:31 | PROVIDER PROGRESS NOTE ---
Hospitalist Cross-cover Note Cross-Cover Note Cross-Cover Note: per rn " Pt still anxious and restless even after administered ativan, seemingly inneffective. Would you like to increase dose? Pt has had no sleep tonight." yoanal x1
[2025-09-25] MEDS: HALOPERIDOL 5 MG/ML VIAL IM ONE (03:46)
[2025-09-25 06:34] LABS: HCT - HEMATOCRIT 53.0 % (42.0-52.0); HGB - HEMOGLOBIN 17.2 g/dL (14.0-18.0); RED CELL DISTRIBUTION WIDTH 18.6 % (12.0-15.0)
[2025-09-25 06:38] LABS: PLT - PLATELET COUNT 35 10^3/uL (130-450)
[2025-09-25 07:30] LABS: AST ASPARTATE AMINOTRANSFERASE 168.0 IU/L (10-42)
[2025-09-25 07:32] LABS: ALT ALANINE AMINOTRANSFERASE 41.0 IU/L (10-60); BUN - BLOOD UREA NITROGEN 11.0 mg/dL (6-20); CARBON DIOXIDE - CO2 24.0 mmol/L (21-32); CREATININE 0.6 mg/dL (0.6-1.3); GFR - MDRD 133.0 (>89)
--- NOTE | 2025-09-25 08:52 | PROVIDER PROGRESS NOTE ---
Subjective Subjective Subjective: Overnight, patient had an episode of delirium requiring medication. This morning, he is back at his baseline mentation, and does not recall the events of the previous evening. At this time, he denies any fevers or chills. He is looking forward to rehab. On 09/24, we had discussion about next steps with him and his . The patient states that he would like to continue immunotherapy at this time, and pursue medical management to see if there is any improvement in his cancer. He understands that he is tired, and that his is unable to care for him. If there are any further episodes like this, he is open to considering hospice, but is not ready for at this time. Will continue goals of care conversation. He is medically cleared. Plan will be SNF, likely. He will need continued and close follow-up with palliative care, oncology. Appears that his next dose of immunotherapy is October 09; ideally, he would go to SNF from here, and then be discharged in time to make this appointment. Current Medications Current Medications Current Medications: Current Medications Generic Name Dose Route Start Last Admin Trade Name Melissa PRN Reason Stop Dose Admin Amlodipine Besylate 5 mg 09/22/25 09:00 09/25/25 07:54 Amlodipine 5 Mg Tablet PO 5 mg DAILY LOURDES Administration Clotrimazole 1 applic 09/24/25 21:00 09/25/25 07:59 Clotrimazole/Betamethasone 15 Gm Tube TOP 1 applic BID LOURDES Administration Fentanyl 1 patch 09/22/25 06:00 09/25/25 06:32 Fentanyl 25 Mcg Patch TOP 1 patch Q72H LOURDES Administration Gabapentin 200 mg 09/23/25 09:00 09/25/25 07:54 Gabapentin 100 Mg Capsule PO 200 mg BID LOURDES Administration Sodium Chloride 1,000 mls @ 100 mls/hr 09/22/25 06:00 09/25/25 07:39 Normal Saline 0.9% IV 100 mls/hr .Q10H LOURDES Administration Losartan Potassium 50 mg 09/23/25 09:00 09/25/25 07:54 Losartan 50 Mg Tablet PO 50 mg BID LOURDES Administration Magnesium Oxide 400 mg 09/22/25 08:00 09/25/25 07:54 Magnesium Oxide 400 Mg Tablet PO 400 mg DAILYWM LOURDES Administration Multivitamins/Minerals 1 tab 09/22/25 08:00 09/25/25 07:54 Multivitamin W/Minerals Tablet PO 1 tab DAILYWM LOURDES Administration Ondansetron HCl 4 mg 09/25/25 00:21 09/25/25 00:39 Ondansetron 4 Mg/2 Ml Vial IVP 4 mg Q8H PRN Administration Nausea / Vomiting Oxycodone HCl 5 mg 09/24/25 11:42 09/24/25 23:04 Oxycodone 5 Mg Tablet PO 5 mg Q4HR PRN Administration Moderate Pain (Level 4-6) Pantoprazole Sodium 40 mg 09/22/25 07:00 09/25/25 06:28 Pantoprazole 40 Mg Tablet PO 40 mg 0700 LOURDES Administration Sodium Chloride 10 ml 09/25/25 00:43 09/25/25 00:43 Sodium Chloride Flush 0.9% 10 Ml Syringe IVP 10 ml PRN PRN Administration Per Line Care protocol Objective Vital Signs/Intake & Output Reviewed Vital Signs: Yes Vital Signs: Vital Signs x48h Temp Pulse Resp BP BP Pulse Ox 09/25/25 07:41 97.9 F 91 16 155/96 H 93 09/25/25 03:16 97.9 F 102 H 18 155/93 H 94 Intake & Output: Intake & Output 09/22/25 09/23/25 09/24/25 09/25/25 23:59 23:59 23:59 23:59 Intake Total 5403 / 5403 2676 / 2676 3752 / 3752 1000 / 1000 Output Total 950 / 950 1150 / 1150 1225 / 1225 675 / 675 Balance 4453 / 4453 1526 / 1526 2527 / 2527 325 / 325 Weight (kg) 58 kg 58 kg Objective General Appearance: positive No acute distress, Alert and Other (Frail, appears older than stated age. Obvious temporal wasting noted. Very hard of hearing.); negative Anxious Eyes Bilateral: positive Normal inspection, PERRL and EOMI ENT: positive ENT inspection nml, Pharynx nml and No signs of dehydration Neck: positive Nml inspection, Thyroid nml and No JVD Respiratory: positive Chest non-tender, No respiratory distress and Breath sounds nml; negative Wheezes, Rales or Rhonchi Cardiovascular: positive Regular rate & rhythm, No murmur and No gallop; negative Tachycardia or Systolic murmur Abdomen: positive Non-tender, No organomegaly, No distention and Other (Mild tenderness in epigastric and right upper quadrant region. No overt rebound tenderness noted. No guarding or rigidity noted.); negative Guarding or Splenomegaly Back: positive Nml inspection; negative CVA tenderness (R) or CVA tenderness (L) Skin: positive Color nml, Warm, Dry and Other (Diffuse scaly erythematous rash noted on bilateral upper and lower extremities-chronic, per , longstanding history of eczema.) Extremities: positive Non-tender, Full ROM, Nml appearance and Pedal edema (1+ bilaterally) Neurologic/Psychiatric: positive Oriented x3, Motor nml, Weakness and Other (Intermittently A&O x3. ) Lab Results 09/25/25 06:27 09/25/25 07:08 Other Labs: Lab Results x24hrs 09/25/25 09/25/25 Range/Units 07:08 06:27 WBC 6.2 (4.8-10.8) x10^3/uL RBC 5.76 (4.70-6.10) 10^6/uL Hgb 17.2 (14.0-18.0) g/dL Hct 53.0 H (42.0-52.0) % MCV 92.0 (80.0-94.0) fL MCH 29.9 (27.0-31.0) pg MCHC 32.5 (32.0-36.0) g/dL RDW 18.6 H (12.0-15.0) % Plt Count 35 L* (130-450) 10^3/uL Sodium 134 L (135-145) mmol/L Potassium 5.0 H (3.5-4.5) mmol/L Chloride 103 (101-111) mmol/L Carbon Dioxide 24 (21-32) mmol/L Anion Gap 7.0 (6-13) BUN 11 (6-20) mg/dL Creatinine 0.6 (0.6-1.3) mg/dL Estimated GFR (MDRD) 133 (>89) Glucose 83 (74-104) mg/dL Calcium 11.6 H (8.5-10.3) mg/dL Magnesium 1.7 (1.7-2.3) mg/dL Total Bilirubin 1.7 H (0.2-1.0) mg/dL AST 168 H (10-42) IU/L ALT 41 (10-60) IU/L Alkaline Phosphatase 343 H (42-121) IU/L Total Protein 6.7 (6.4-8.9) g/dL Albumin 3.5 (3.2-5.5) g/dL Globulin 3.2 (2.1-4.2) g/dL Albumin/Globulin Ratio 1.1 (1.0-2.2) Diagnostic Imaging Diagnostic Imaging Results: positive Final report reviewed Assessment/Plan Problem List (1) Acute metabolic encephalopathy: (2) Hypercalcemia: Impression: Resolved 09/24, although likely will continue to be intermittent. Patient presented with altered mental status. He had some discoordination, and is very slow to respond, which states is a departure from his normal. Attributed to hypercalcemia. His calcium has been elevated as high as 14.3, even in the outpatient since 07/30. Started on IV fluids. Received a dose of IV Zometa 09/23 with improvement in calcium, and subsequently mental status. CT head was negative. MRI from 06/30 was negative. MRI repeated this admission, negative for any strokes, metastasis, bleeds etc. Ongoing continued discussion about overall goals of care. Palliative care has been consulted, and will continue to follow in the outpatient. Current goals of care are a DO NOT RESUSCITATE, selective treatment. Patient would like to continue with immunotherapy at this time. He understands that palliative care will continue to follow-up with him, and that hospice is always an option. (3) Pulmonary emboli: Impression: Continue home Lovenox. Qualifiers: Pulmonary embolism type: multiple subsegmental (without acute cor pulmonale) Qualified Code(s): I26.94 - Multiple subsegmental thrombotic pulmonary emboli without acute cor pulmonale (4) Hepatocellular carcinoma: Impression: Patient with history of hepatitis C, and recent diagnosis of biopsy-proven poorly differentiated hepatocellular carcinoma, stage IV. This is complicated by hepatic vein/IVC thrombus and pulmonary emboli, on Lovenox. Recently received immunotherapy on 09/12. Plan for PET scan. Goals of care discussion with palliative care as outlined above. Continue fentanyl patch for pain control. Oxycodone as needed added. (5) Severe protein-calorie malnutrition: Impression: Visible muscle fat wasting in upper extremities. Weight loss of 3 kg in 3 months or about 5% of body weight. Encourage P.O. intake. (6) Hypertension: Impression: Continue losartan and amlodipine. Qualifiers: Hypertension type: unspecified Qualified Code(s): I10 - Essential (primary) hypertension
[2025-09-25] MEDS: MELATONIN 3 MG TABLET PO SCH (19:47)
[2025-09-25] MEDS: DOXAZOSIN 1 MG TABLET PO SCH (20:11)
[2025-09-25] MEDS ORDERED: MELATONIN 3 MG TABLET PO SCH (21:00)
[2025-09-26 07:13] LABS: HCT - HEMATOCRIT 46.1 % (42.0-52.0); HGB - HEMOGLOBIN 15.1 g/dL (14.0-18.0); MEAN PLATELET VOLUME 10.6 fL (7.4-11.4); PLT - PLATELET COUNT 49.0 10^3/uL (130-450); RED CELL DISTRIBUTION WIDTH 18.0 % (12.0-15.0)
[2025-09-26 07:34] LABS: ALT ALANINE AMINOTRANSFERASE 34.0 IU/L (10-60); AST ASPARTATE AMINOTRANSFERASE 139.0 IU/L (10-42); BUN - BLOOD UREA NITROGEN 16.0 mg/dL (6-20); CARBON DIOXIDE - CO2 26.0 mmol/L (21-32); CREATININE 0.7 mg/dL (0.6-1.3); GFR - MDRD 111.0 (>89)
--- NOTE | 2025-09-26 12:03 | PROVIDER PROGRESS NOTE ---
Subjective Subjective Subjective: Patient continues to have episodes of confusion. He is redirectable but continues to try to get out of bed every few hours. His is interested in a Hospice informational. See ACP conversation from today. He is medically cleared. Plan will be SNF, likely. He will need continued and close follow-up with palliative care, oncology. Appears that his next dose of immunotherapy is October 09; ideally, he would go to SNF from here, and then be discharged in time to make this appointment. Current Medications Current Medications Current Medications: Current Medications Generic Name Dose Route Start Last Admin Trade Name Freq PRN Reason Stop Dose Admin Amlodipine Besylate 5 mg 09/22/25 09:00 09/26/25 08:13 Amlodipine 5 Mg Tablet PO 5 mg DAILY LOURDES Administration Clotrimazole 1 applic 09/24/25 21:00 09/26/25 08:13 Clotrimazole/Betamethasone 15 Gm Tube TOP 1 applic BID LOURDES Administration Doxazosin Mesylate 1 mg 09/25/25 21:00 09/25/25 20:11 Doxazosin 1 Mg Tablet PO 1 mg QPM LOURDES Administration Fentanyl 1 patch 09/22/25 06:00 09/25/25 06:32 Fentanyl 25 Mcg Patch TOP 1 patch Q72H LOURDES Administration Gabapentin 200 mg 09/23/25 09:00 09/26/25 08:13 Gabapentin 100 Mg Capsule PO 200 mg BID LOURDES Administration Losartan Potassium 50 mg 09/23/25 09:00 09/26/25 08:13 Losartan 50 Mg Tablet PO 50 mg BID LOURDES Administration Magnesium Oxide 400 mg 09/22/25 08:00 09/26/25 08:13 Magnesium Oxide 400 Mg Tablet PO 400 mg DAILYWM LOURDES Administration Melatonin 3 mg 09/25/25 19:30 09/25/25 20:23 Melatonin 3 Mg Tablet PO Not Given QPM LOURDES Multivitamins/Minerals 1 tab 09/22/25 08:00 09/26/25 08:13 Multivitamin W/Minerals Tablet PO 1 tab DAILYWM LOURDES Administration Ondansetron HCl 4 mg 09/25/25 00:21 09/25/25 00:39 Ondansetron 4 Mg/2 Ml Vial IVP 4 mg Q8H PRN Administration Nausea / Vomiting Oxycodone HCl 5 mg 09/24/25 11:42 09/25/25 17:12 Oxycodone 5 Mg Tablet PO 5 mg Q4HR PRN Administration Moderate Pain (Level 4-6) Pantoprazole Sodium 40 mg 09/22/25 07:00 09/26/25 08:13 Pantoprazole 40 Mg Tablet PO 40 mg 0700 LOURDES Administration Quetiapine Fumarate 25 mg 09/25/25 18:19 09/25/25 19:46 Quetiapine 25 Mg Tablet PO 25 mg QPM PRN Administration Agitation Sodium Chloride 10 ml 09/25/25 00:43 09/25/25 15:49 Sodium Chloride Flush 0.9% 10 Ml Syringe IVP 10 ml PRN PRN Administration Per Line Care protocol Objective Vital Signs/Intake & Output Reviewed Vital Signs: Yes Vital Signs: Vital Signs x48h Temp Pulse Resp BP Pulse Ox 09/26/25 09:00 98.1 F 99 16 124/81 94 Intake & Output: Intake & Output 09/23/25 09/24/25 09/25/25 09/26/25 23:59 23:59 23:59 23:59 Intake Total 2676 / 2676 3752 / 3752 3350 / 3350 360 / 360 Output Total 1150 / 1150 1225 / 1225 1225 / 1225 200 / 200 Balance 1526 / 1526 2527 / 2527 2125 / 2125 160 / 160 Weight (kg) 58 kg Objective General Appearance: positive No acute distress, Alert and Other (Frail, appears older than stated age. Obvious temporal wasting noted. Very hard of hearing.); negative Anxious Eyes Bilateral: positive Normal inspection, PERRL and EOMI ENT: positive ENT inspection nml, Pharynx nml and No signs of dehydration Neck: positive Nml inspection, Thyroid nml and No JVD Respiratory: positive Chest non-tender, No respiratory distress and Breath sounds nml; negative Wheezes, Rales or Rhonchi Cardiovascular: positive Regular rate & rhythm, No murmur and No gallop; negative Tachycardia or Systolic murmur Abdomen: positive Non-tender, No organomegaly, No distention and Other (Mild tenderness in epigastric and right upper quadrant region. No overt rebound tenderness noted. No guarding or rigidity noted.); negative Guarding or Splenomegaly Back: positive Nml inspection; negative CVA tenderness (R) or CVA tenderness (L) Skin: positive Color nml, Warm, Dry and Other (Diffuse scaly erythematous rash noted on bilateral upper and lower extremities-chronic, per , longstanding history of eczema.) Extremities: positive Non-tender, Full ROM, Nml appearance and Pedal edema (1+ bilaterally) Neurologic/Psychiatric: positive Oriented x3, Motor nml, Weakness and Other (Intermittently A&O x3. ) Lab Results 09/26/25 07:04 09/26/25 07:04 Other Labs: Lab Results x24hrs 09/26/25 Range/Units 07:04 WBC 4.9 (4.8-10.8) x10^3/uL RBC 5.07 (4.70-6.10) 10^6/uL Hgb 15.1 (14.0-18.0) g/dL Hct 46.1 (42.0-52.0) % MCV 90.9 (80.0-94.0) fL MCH 29.8 (27.0-31.0) pg MCHC 32.8 (32.0-36.0) g/dL RDW 18.0 H (12.0-15.0) % Plt Count 49 L (130-450) 10^3/uL MPV 10.6 (7.4-11.4) fL Sodium 135 (135-145) mmol/L Potassium 4.0 (3.5-4.5) mmol/L Chloride 103 (101-111) mmol/L Carbon Dioxide 26 (21-32) mmol/L Anion Gap 6.0 (6-13) BUN 16 (6-20) mg/dL Creatinine 0.7 (0.6-1.3) mg/dL Estimated GFR (MDRD) 111 (>89) Glucose 85 (74-104) mg/dL Calcium 11.0 H (8.5-10.3) mg/dL Total Bilirubin 1.5 H (0.2-1.0) mg/dL AST 139 H (10-42) IU/L ALT 34 (10-60) IU/L Alkaline Phosphatase 273 H (42-121) IU/L Total Protein 5.8 L (6.4-8.9) g/dL Albumin 3.0 L (3.2-5.5) g/dL Globulin 2.8 (2.1-4.2) g/dL Albumin/Globulin Ratio 1.1 (1.0-2.2) Diagnostic Imaging Diagnostic Imaging Results: positive Final report reviewed Assessment/Plan Problem List (1) Acute metabolic encephalopathy: (2) Hypercalcemia: Impression: Resolved 09/24, although likely will continue to be intermittent. Patient presented with altered mental status. He had some discoordination, and is very slow to respond, which states is a departure from his normal. Attributed to hypercalcemia. His calcium has been elevated as high as 14.3, even in the outpatient since 07/30. Today, it was 11.4. Received a dose of IV Zometa 09/23 with improvement in calcium, and subsequently mental status. CT head was negative. MRI from 06/30 was negative. MRI repeated this admission, negative for any strokes, metastasis, bleeds etc. Ongoing continued discussion about overall goals of care. Palliative care has been consulted, and will continue to follow in the outpatient. Current goals of care are a DO NOT RESUSCITATE, selective treatment. Patient would like to continue with immunotherapy at this time. expressed wishes for a Hospice informational today. (3) Pulmonary emboli: Impression: Continue home Lovenox. Qualifiers: Pulmonary embolism type: multiple subsegmental (without acute cor pulmonale) Qualified Code(s): I26.94 - Multiple subsegmental thrombotic pulmonary emboli without acute cor pulmonale (4) Hepatocellular carcinoma: Impression: Patient with history of hepatitis C, and recent diagnosis of biopsy-proven poorly differentiated hepatocellular carcinoma, stage IV. This is complicated by hepatic vein/IVC thrombus and pulmonary emboli, on Lovenox. Recently received immunotherapy on 09/12. Plan for PET scan. Goals of care discussion with palliative care as outlined above. Continue fentanyl patch for pain control. Oxycodone as needed added. (5) Severe protein-calorie malnutrition: Impression: Visible muscle fat wasting in upper extremities. Weight loss of 3 kg in 3 months or about 5% of body weight. Encourage P.O. intake. (6) Hypertension: Impression: Continue losartan and amlodipine. Qualifiers: Hypertension type: unspecified Qualified Code(s): I10 - Essential (primary) hypertension
--- NOTE | 2025-09-26 12:03 | ADVANCE CARE PLANNING NOTE ---
Advance Care Planning Diagnosis for Encounter (1) Hepatocellular carcinoma:
--- NOTE | 2025-09-26 14:14 | MISCELLANEOUS PROVIDER NOTE ---
Miscellaneous Provider Note - Note: Met with patient and briefly to check in. Patient much more clear but quintanilla ving difficulty putting the pieces together about what has happened and why he can't figure it out. Reviewed is admit for confusion, confusion came from his side effects of his cancer, his numbers are improved today. Hope is he can get some rehab and stronger and he continues to eat better so he can get treatment if that is what he wants, but discussed we are in a precarious position of hoping for the best but need to be prepared may be more difficult and other decisions might be coming their way. They are expecting a hospice informational visit, reviewed with this is not an "if" but a when it will be appropriate to make this transition. She is feeling better that he can participate some. He is still pending approval for tranfer. Provided contact information, will follow outpatient when returns home.
--- NOTE | 2025-09-26 21:13 | XRAY Report ---
PROCEDURE: XR Chest 1V INDICATIONS: ?aspiration TECHNIQUE: One view of the chest was acquired. COMPARISON: CXR on 09/08/2025, CT chest on 06/15/2025 FINDINGS: Surgical changes and devices: Tunneled right IJ port central venous catheter with tip at the superior cavoatrial junction.. Lungs and pleura: No pleural effusion or pneumothorax. Innumerable pulmonary metastases are again seen. No acute consolidation Mediastinum: Mediastinal contours appear normal. Heart size is normal. Bones and chest wall: No suspicious bony lesions. Overlying soft tissues appear unremarkable. IMPRESSION: No acute consolidation Innumerable pulmonary metastases are again seen. Reviewed by: Vadim Stanford MD on 09/26/2025 9:10 PM PST Approved by: Vadim Stanford MD on 09/26/2025 9:10 PM PST Station ID: [id number]
[2025-09-26] MEDS: ENOXAPARIN 40 MG/0.4 ML SYRINGE SUBQ SCH (22:40)
[2025-09-27] MEDS: PANTOPRAZOLE 40 MG TABLET PO SCH (08:23)
--- NOTE | 2025-09-27 09:28 | PROVIDER PROGRESS NOTE ---
Subjective Subjective Subjective: Patient is doing great today. He slept well. He did not have to wake up multiple times to urinate. He is alert and oriented x 4, conversing appropriately. Him and his both understand that if he is at rehab, his oncological treatment may be delayed. They are okay with this. He is medically cleared. Plan will be [facility], asa Jimenez, 09/27. Current Medications Current Medications Current Medications: Current Medications Generic Name Dose Route Start Last Admin Trade Name Freq PRN Reason Stop Dose Admin Amlodipine Besylate 5 mg 09/22/25 09:00 09/27/25 08:23 Amlodipine 5 Mg Tablet PO 5 mg DAILY LOURDES Administration Clotrimazole 1 applic 09/24/25 21:00 09/27/25 08:23 Clotrimazole/Betamethasone 15 Gm Tube TOP 1 applic BID LOURDES Administration Doxazosin Mesylate 1 mg 09/25/25 21:00 09/26/25 22:33 Doxazosin 1 Mg Tablet PO Not Given QPM LOURDES Enoxaparin Sodium 40 mg 09/26/25 21:00 09/27/25 08:22 Enoxaparin 40 Mg/0.4 Ml Syringe SUBQ 40 mg BID LOURDES Administration Fentanyl 1 patch 09/22/25 06:00 09/25/25 06:32 Fentanyl 25 Mcg Patch TOP 1 patch Q72H LOURDES Administration Gabapentin 200 mg 09/23/25 09:00 09/27/25 08:23 Gabapentin 100 Mg Capsule PO 200 mg BID LOURDES Administration Losartan Potassium 50 mg 09/23/25 09:00 09/27/25 08:23 Losartan 50 Mg Tablet PO 50 mg BID LOURDES Administration Magnesium Oxide 400 mg 09/22/25 08:00 09/27/25 08:23 Magnesium Oxide 400 Mg Tablet PO 400 mg DAILYWM LOURDES Administration Melatonin 3 mg 09/25/25 19:30 09/26/25 22:34 Melatonin 3 Mg Tablet PO Not Given QPM LOURDES Multivitamins/Minerals 1 tab 09/22/25 08:00 09/27/25 08:23 Multivitamin W/Minerals Tablet PO 1 tab DAILYWM LOURDES Administration Ondansetron HCl 4 mg 09/25/25 00:21 09/25/25 00:39 Ondansetron 4 Mg/2 Ml Vial IVP 4 mg Q8H PRN Administration Nausea / Vomiting Oxycodone HCl 5 mg 09/24/25 11:42 09/25/25 17:12 Oxycodone 5 Mg Tablet PO 5 mg Q4HR PRN Administration Moderate Pain (Level 4-6) Pantoprazole Sodium 40 mg 09/27/25 05:37 09/27/25 08:23 Pantoprazole 40 Mg Tablet PO 40 mg 0800 LOURDES Administration Quetiapine Fumarate 25 mg 09/25/25 18:19 09/25/25 19:46 Quetiapine 25 Mg Tablet PO 25 mg QPM PRN Administration Agitation Sodium Chloride 10 ml 09/25/25 00:43 09/26/25 16:45 Sodium Chloride Flush 0.9% 10 Ml Syringe IVP 10 ml PRN PRN Administration Per Line Care protocol Objective Vital Signs/Intake & Output Reviewed Vital Signs: Yes Vital Signs: Vital Signs x48h Temp Pulse Resp BP BP Pulse Ox O2 Flow Rate 09/27/25 08:16 98.1 F 97 16 148/95 H 99 2 09/27/25 04:21 97.9 F 106 H 14 148/90 H 96 2 Intake & Output: Intake & Output 09/24/25 09/25/25 09/26/25 09/27/25 23:59 23:59 23:59 23:59 Intake Total 3752 / 3752 3350 / 3350 740 / 740 480 / 480 Output Total 1225 / 1225 1225 / 1225 470 / 470 250 / 250 Balance 2527 / 2527 2125 / 2125 270 / 270 230 / 230 Objective General Appearance: positive No acute distress, Alert and Other (Frail, appears older than stated age. Obvious temporal wasting noted. Very hard of hearing.); negative Anxious Eyes Bilateral: positive Normal inspection, PERRL and EOMI ENT: positive ENT inspection nml, Pharynx nml and No signs of dehydration Neck: positive Nml inspection, Thyroid nml and No JVD Respiratory: positive Chest non-tender, No respiratory distress and Breath sounds nml; negative Wheezes, Rales or Rhonchi Cardiovascular: positive Regular rate & rhythm, No murmur and No gallop; negative Tachycardia or Systolic murmur Abdomen: positive Non-tender, No organomegaly, No distention and Other (Mild tenderness in epigastric and right upper quadrant region. No overt rebound tenderness noted. No guarding or rigidity noted.); negative Guarding or Splenomegaly Back: positive Nml inspection; negative CVA tenderness (R) or CVA tenderness (L) Skin: positive Color nml, Warm, Dry and Other (Diffuse scaly erythematous rash noted on bilateral upper and lower extremities-chronic, per , longstanding history of eczema.) Extremities: positive Non-tender, Full ROM, Nml appearance and Pedal edema (1+ bilaterally) Neurologic/Psychiatric: positive Oriented x3, Motor nml, Weakness and Other Lab Results 09/26/25 07:04 09/26/25 07:04 Other Labs: Lab Results x24hrs 09/26/25 Range/Units 07:04 WBC 4.9 (4.8-10.8) x10^3/uL RBC 5.07 (4.70-6.10) 10^6/uL Hgb 15.1 (14.0-18.0) g/dL Hct 46.1 (42.0-52.0) % MCV 90.9 (80.0-94.0) fL MCH 29.8 (27.0-31.0) pg MCHC 32.8 (32.0-36.0) g/dL RDW 18.0 H (12.0-15.0) % Plt Count 49 L (130-450) 10^3/uL MPV 10.6 (7.4-11.4) fL Sodium 135 (135-145) mmol/L Potassium 4.0 (3.5-4.5) mmol/L Chloride 103 (101-111) mmol/L Carbon Dioxide 26 (21-32) mmol/L Anion Gap 6.0 (6-13) BUN 16 (6-20) mg/dL Creatinine 0.7 (0.6-1.3) mg/dL Estimated GFR (MDRD) 111 (>89) Glucose 85 (74-104) mg/dL Calcium 11.0 H (8.5-10.3) mg/dL Total Bilirubin 1.5 H (0.2-1.0) mg/dL AST 139 H (10-42) IU/L ALT 34 (10-60) IU/L Alkaline Phosphatase 273 H (42-121) IU/L Total Protein 5.8 L (6.4-8.9) g/dL Albumin 3.0 L (3.2-5.5) g/dL Globulin 2.8 (2.1-4.2) g/dL Albumin/Globulin Ratio 1.1 (1.0-2.2) Diagnostic Imaging Diagnostic Imaging Results: positive Final report reviewed Assessment/Plan Problem List (1) Acute metabolic encephalopathy: (2) Hypercalcemia: Impression: Resolved. Patient presented with altered mental status. He had some discoordination, and was very slow to respond, which states was a departure from his normal. Attributed to hypercalcemia. His calcium has been elevated as high as 14.3, even in the outpatient since 07/30. Continues to downtrend. Received a dose of IV Zometa 09/23 with improvement in calcium, and subsequently mental status. CT head was negative. MRI from 06/30 was negative. MRI repeated this admission, negative for any strokes, metastasis, bleeds etc. Ongoing continued discussion about overall goals of care. Palliative care has been consulted, and will continue to follow in the outpatient. Current goals of care are a DO NOT RESUSCITATE, selective treatment. Patient would like to continue with immunotherapy at this time. Hospice informational completed; plan is still as above. (3) Pulmonary emboli: Impression: Continue home Lovenox. Qualifiers: Pulmonary embolism type: multiple subsegmental (without acute cor pulmonale) Qualified Code(s): I26.94 - Multiple subsegmental thrombotic pulmonary emboli without acute cor pulmonale (4) Hepatocellular carcinoma: Impression: Patient with history of hepatitis C, and recent diagnosis of biopsy-proven poorly differentiated hepatocellular carcinoma, stage IV. This is complicated by hepatic vein/IVC thrombus and pulmonary emboli, on Lovenox. Recently received immunotherapy on 09/12. Plan for PET scan. Goals of care discussion with palliative care as outlined above. Continue fentanyl patch for pain control. Oxycodone as needed added. (5) Severe protein-calorie malnutrition: Impression: Visible muscle fat wasting in upper extremities. Weight loss of 3 kg in 3 months or about 5% of body weight. Encourage P.O. intake. (6) Hypertension: Impression: Continue losartan and amlodipine. Qualifiers: Hypertension type: unspecified Qualified Code(s): I10 - Essential (primary) hypertension
--- NOTE | 2025-09-27 10:42 | Speech Therapy Plan of Care ---
DIAGNOSIS Date of Service Date of Service: 09/27/25 Diagnosis: Hypercalcemia MEDICAL/SURGICAL PAST HISTORY Past History Medical History History of tumor Eczema Hepatic fibrosis Mass of parotid gland Muscular dystrophy Psoriasis Insomnia Gout Myositis Secondary polycythemia HyperCKemia Mixed hyperlipidemia Hypertension Surgical History H/O colonoscopy H/O bilateral inguinal hernia repair History of liver biopsy SPEECH ASSESSMENT Assessment: Patient is a 69 y/o male admitted with acute metabolic encephalopathy secondary to hypercalcemia, presenting as slowed responses and discoordination, per spouse a decline from baseline. CT head and repeat MRI during this admission were negative for acute intracranial pathology. Encephalopathy resolved as of 09/24, though may recur intermittently. Goals of care reviewed with palliative care; patient is DNR with selective treatment and plans to continue immunotherapy. Patient is medically cleared; plan for SNF placement with close oncology and palliative follow-up. Ne xt immunotherapy scheduled for 10/09. Pt seen for BSE following reported aspiration/choking event on 09/26. Patient was seated upright in chair with spouse present; extremely hard of hearing but wearing hearing aids and able to follow simple commands. Spouse reported choking on a large chunk of meat while eating stew. CXR on 09/26 showed pulmonary metastases without evidence of pneumonia. Spouse reports patient typically cuts food independently but intermittently reports solids sticking in chest. Patient currently on IDDSI level 6 (soft and bite sized) diet with thin liquids. Oral mechanism exam notable for mild reduction in lingual agility, largely edentulous dentition with only a few remaining teeth, and mildly reduced laryngeal elevation/excursion on dry swallow. PO trials of thin liquids (consecutive sips), pudding, and cookie were completed. Patient demonstrated good bolus hold and control, timely and efficient AP transit, and clinically complete swallows. Vocal quality remained clear and dry throughout. No overt signs or symptoms of penetration or aspiration observed. Silent aspiration cannot be ruled out at bedside but is not suspected clinically. Impression: Mild oral dysphagia likely secondary to edentulism. Recommendations: Continue IDDSI level 6 diet with thin liquids, utilize swallow precautions (small bites/sips, upright positioning), and maintain aggressive oral care. Education provided to spouse regarding IDDSI level 6 guidelines and comfort feeding at end of life. No further skilled DISPENSARY TECHNICIAN intervention indicated at this time.
[2025-09-28 06:25] LABS: BUN - BLOOD UREA NITROGEN 18.0 mg/dL (6-20); CARBON DIOXIDE - CO2 25.0 mmol/L (21-32); CREATININE 0.6 mg/dL (0.6-1.3); GFR - MDRD 133.0 (>89)
[2025-09-28 07:56] VITALS: TEMP 97.9
--- NOTE | 2025-09-28 08:32 | Discharge Summary ---
"Discharge Summary Admit Date: 09/22/25 Discharge Date: 09/28/25 Discharging Provider: Dr. Greyson Neff Primary Care Provider: Fernando Vargas Code Status: Do Not Attempt Resuscitation Discharge [facility] Name: [facility] DIAGNOSES Discharge Diagnoses with Status of Each Condition: Acute metabolic encephalopathy, hypercalcemiaresolved. Attributed to hypercalcemia. His calcium was elevated at 14.3, and on discharge it is now 11. Received a dose of IV Zometa 09/23 with improvement in calcium, and subsequently mental status. CT head was negative. MRI from 06/30 was negative. MRI repeated this admission, negative for any strokes, metastasis, bleeds etc. Pulmonary embolicontinue home Lovenox 40 mg twice daily. Check CBC weekly to ensure platelets are above 30, stable. Hepatocellular carcinoma Patient with history of hepatitis C, and recent diagnosis of biopsy-proven poorly differentiated hepatocellular carcinoma, stage IV. This is complicated by hepatic vein/IVC thrombus and pulmonary emboli, on Lovenox. Recently received immunotherapy on 09/12. Plan for PET scan. Goals of care discussion with palliative care, would like to try longer round of immunotherapy. Otherwise he is DNR/DNI. Continue fentanyl patch for pain control. Oxycodone as needed. Severe protein calorie malnutrition Visible muscle fat wasting in upper extremities. Weight loss of 3 kg in 3 months or about 5% of body weight. Encourage P.O. intake. Hypertension Continue losartan and amlodipine. HPI History of Present Illness: Per Jerome Patterson: pt with h/o hepatocellular CA in setting of hepC, currenty on chemotherapy (don't know which type). has noted that pt is sleepier and more lethargic than usual. she found him sleeping on the floor at their house. no fevers, chills, falls reported. states that pt has had high calcium before and his his how he looks when calcium is high. no falls. pt does have ams but tries to answer questions. CONSULTS | PROCEDURES Consultations: Palliative Care Procedures: Chest x-ray09/26no acute consolidation, innumerable pulmonary metastasis. Brain MRIno masses or abnormal enhancement seen. Head CTnegative. 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 Per , he was confused, disoriented, and had discoordination. He was found to have hypercalcemia with a level of 14. He received IV fluids with minimal improvement. 1 dose of Zometa was given with improvement of his calcium to 11. His mentation improved. MRI was completed which was negative. Extensive goals of care conversation with the patient and his . At this time, he is a DNR, and is okay for selective treatment. They would like to try a few more rounds of immunotherapy, and then decide whether to pursue hospice. Palliative care was consulted during the duration of his stay, and will continue to follow-up with them outpatient. He was discharged to SNF in stable condition. He will need close and continued follow-up with palliative care, as well as oncology in the outpatient setting. ALLERGIES Allergies Allergy/AdvReac Type Severity Reaction Status Date / Time No Known Drug Allergies Allergy Verified 09/08/25 13:50 MEDICATIONS Ambulatory Orders Medication Instructions Recorded Confirmed cyclobenzaprine 10 mg tablet 10 mg PO TID PRN muscle s pasm 05/13/13 09/22/25 trazodone 100 mg tablet 350 mg PO HS 05/13/13 ondansetron 8 mg disintegrating 8 mg PO Q8H 07/11/25 1 11/23/24 tablet amlodipine 5 mg tablet 5 mg PO DAILY 07/13/2509/22 betamethasone dipropionate 0.05 % 1 applic topical TIERNEY LY PRN itching 07/13/25 09/22/25 topical cream [id number] tablet 1 tab PO DAILY 05/3009/22/25 magnesium 400 mg PO DAILY 08/29/25 pantoprazole 40 mg tablet,delayed 40 mg PO DAILY #90 t abs 09/08/25 09/22/25 release enoxaparin 40 mg/0.4 mL 40 mg subcut BID 09/22/25 subcutaneous syringe gabapentin 100 mg capsule 200 mg PO BID 09/22/2509/22 losartan 50 mg tablet 50 mg PO BID 09/22/25 doxazosin 1 mg tablet 1 mg PO QPM #30 tabs 5 fentanyl 25 mcg/hr transdermal 1 patch transdermal Q72 H #3 ea 09/28/25 patch magnesium oxide 400 mg (241.3 mg 400 mg PO DAILYWM #30 tabs 09/28/25 magnesium) tablet melatonin 3 mg tablet 3 mg PO QPM #30 tabs 5 oxycodone 5 mg tablet 5 mg PO Q6HR PRN pain 3 days #15 09/28/25 tabs PHYSICAL EXAM AT DISCHARGE Vital Signs: Vital Signs x48h Temp Pulse Resp BP Pulse Ox 09/28/25 10:30 97.9 F 97 18 119/71 97 09/28/25 07:55 97.9 F 93 20 147/90 H 98 General Appearance: positive No acute distress, Alert and Other (Frail, appears older than stated age. Obvious temporal wasting noted. Very hard of hearing.); negative Anxious Eyes Bilateral: positive Normal inspection, PERRL and EOMI ENT: positive ENT inspection nml, Pharynx nml and No signs of dehydration Neck: positive Nml inspection, Thyroid nml and No JVD Respiratory: positive Chest non-tender, No respiratory distress and Breath sounds nml; negative Wheezes, Rales or Rhonchi Cardiovascular: positive Regular rate & rhythm, No murmur and No gallop; negative Tachycardia or Systolic murmur Abdomen: positive Non-tender, No organomegaly, No distention and Other (Mild tenderness in epigastric and right upper quadrant region. No overt rebound tenderness noted. No guarding or rigidity noted.); negative Guarding or Splenomegaly Back: positive Nml inspection; negative CVA tenderness (R) or CVA tenderness (L) Skin: positive Color nml, Warm, Dry and Other (Diffuse scaly erythematous rash noted on bilateral upper and lower extremities-chronic, per , longstanding history of eczema.) Extremities: positive Non-tender, Full ROM, Nml appearance and Pedal edema (1+ bilaterally) Neurologic/Psychiatric: positive Oriented x3, Motor nml, Weakness and Other LABS 09/28/25 09:25 09/28/25 05:40 DIAGNOSTIC IMAGING Diagnostic Imaging Results: Final report reviewed FOLLOW UP Follow Up: Follow up with PCP. Follow up with Palliative Care. Follow up with oncology. TIME SPENT Time Spent in Discharge (Minutes): 35 Discharge Plan Discharge Patient Disposition: DC/Xfer Condition: Stable Prescriptions: New doxazosin 1 mg Tablet 1 mg PO QPM Qty: 30 0RF magnesium oxide 400 mg (241.3 mg magnesium) Tablet 400 mg PO DAILYWM Qty: 30 0RF melatonin 3 mg Tablet 3 mg PO QPM Qty: 30 0RF Continued cyclobenzaprine 10 MG tablet 10 mg PO TID PRN (Reason: muscle spasm) trazodone 100 MG tablet 350 mg PO HS pantoprazole 40 mg tablet,delayed release (DR/EC) 40 mg PO DAILY Qty: 90 3RF enoxaparin 40 mg/0.4 mL syringe 40 mg subcut BID Patient Comments: INJECT 0.4 ML TWICE A DAY BY SUBCUTANEOUS ROUTE FOR 30 DAYS. losartan 50 mg tablet 50 mg PO BID gabapentin 100 mg capsule 200 mg PO BID Patient Comments: take 2 capsules by mouth twice a day fentanyl 25 mcg/hr patch 72 hour 1 patch transdermal Q72H Qty: 3 0RF oxycodone 5 mg tablet 5 mg PO Q6HR PRN (Reason: pain) 3 Days Qty: 15 0RF ondansetron 8 mg tablet,disintegrating 8 mg PO Q8H amlodipine 5 mg tablet 5 mg PO DAILY betamethasone dipropionate 0.05 % cream 1 applic topical DAILY PRN (Reason: itching) [id number] Tablet 1 tab PO DAILY magnesium 400 mg PO DAILY Patient Comments: taking 400mg po daily Activity Restrictions: Activity as Tolerated Diet: Regular Health Concerns: You were hospitalized because high calcium levels in your blood (hypercalcemia) caused confusion and altered mental status. This condition occurred due to your cancer, which affects how your body handles calcium. When calcium levels become too high, it can cause confusion, weakness, nausea, constipation, and other symptoms. Continue taking all prescribed medications as directed: - If you were given bisphosphonates (such as zoledronic acid or pamidronate) during your hospitalization, these medications help control calcium levels by preventing calcium release from your bones. The effects typically last 3-6 weeks, and you may need repeat treatments every 3-4 weeks. - Do NOT take calcium supplements or vitamin D supplements unless specifically instructed by your doctor. Hydration is Critical Drink plenty of fluids every day: - Aim for 8-10 glasses of water daily or as directed by your healthcare team. Adequate hydration helps your kidneys eliminate excess calcium from your blood. - If you have trouble drinking enough fluids due to nausea or other symptoms, contact your doctor immediately. - Avoid becoming dehydrated, as this can worsen calcium levels and cause symptoms to return. Warning Signs - When to Seek Medical Attention Call your doctor or go to the emergency department if you experience: - Confusion, difficulty thinking clearly, or changes in mental status - Severe nausea or vomiting that prevents you from drinking fluids - Extreme weakness or difficulty walking - Severe constipation not relieved by hnxi-msd-kiewpfu remedies - Decreased urination or very dark urine - Excessive sleepiness or difficulty staying awake Follow-Up Care - Keep all scheduled appointments with your oncologist and other healthcare providers. Treating your underlying cancer is essential for long-term control of calcium levels. - You will need regular blood tests to monitor your calcium levels and kidney function.[1][2] - Your healthcare team may adjust your cancer treatment plan to help prevent hypercalcemia from recurring. Diet and Lifestyle - Limit foods very high in calcium (such as dairy products) while your calcium levels are being controlled, but maintain adequate nutrition overall. - Avoid prolonged immobility. Stay as active as your condition allows, as prolonged bed rest can worsen calcium levels. - Protect your oral health: maintain good dental hygiene and notify your dentist that you received bisphosphonates or denosumab, as these medications can rarely affect jaw bone health. Important Reminders - Hypercalcemia of malignancy can recur and requires ongoing monitoring and treatment as part of your overall cancer care. - Contact your healthcare team if you have any questions or concerns about your condition or medications. Print Language: Dominican Patient Instructions: Hypercalcemia Dc Stand Alone Forms: SNF Discharge, PCP List, SBIRT Follow-up Care: FERNANDO VARGAS ARNP [Primary Care Provider, Nurse Practitioner] Report called to and time (if no answer, doc. time of each call attempted): [place] at [phone] Vitals documented within 30 minutes of discharge?: Yes (Yes)"
[2025-09-28 09:33] LABS: HCT - HEMATOCRIT 45.2 % (42.0-52.0); HGB - HEMOGLOBIN 15.0 g/dL (14.0-18.0); MEAN PLATELET VOLUME 9.2 fL (7.4-11.4); PLT - PLATELET COUNT 62.0 10^3/uL (130-450); RED CELL DISTRIBUTION WIDTH 17.5 % (12.0-15.0)
[2025-09-28 11:05] VITALS: BP 119/71; O2SAT 97
== END 2025-09-28 11:00 | DRG 70 ==
LOC: ED 21:20 → ICU 09-22 05:14 → MS2 09-22 16:26
PROVIDERS: ADMIT Student in an Organized Health Care Education/Training Program; ATTEND Student in an Organized Health Care Education/Training Program